=== PATIENT | female | born 1945 | race Caucasian/White ===

== ENCOUNTER 2017-09-16 13:36 | Inpatient (IN) | payer MEDICARE, OTHER ==
[2017-09-16] MEDS ORDERED: Sodium Chloride 0.9% 1,000 ML IV ONE (13:58)
--- NOTE | 2017-09-16 14:21 | EDM.PDOC ---
ED HPI GENERAL MEDICAL PROBLEM - General Chief Complaint: Gastrointestinal Problem Stated Complaint: PT IS BLEEDING FROM THE RECTUM Time Seen by Provider: 09/16/17 13:39 Source of Information: Reports: Patient History Limitations: Reports: No Limitations - History of Present Illness INITIAL COMMENTS - FREE TEXT/NARRATIVE: HISTORY AND PHYSICAL: History of present illness: Patient is a 72-year-old female who presents to the emergency room today with complaints of blood in her stool to states that she had been constipated for the last couple days and did take a Dulcolax suppository yesterday. This morning she had three bowel movements and noted blood coming from her rectum. Mild low pelvic/abdominal discomfort; nontender with palpation. Denies any fever , chills, chest pain, cough, or shortness of breath. Denies any nausea, vomiting , diarrhea or constipation. Review of systems: As per history of present illness and below otherwise all systems reviewed and negative. Past medical history: As per history of present illness and as reviewed below otherwise noncontributory. Surgical history: As per history of present illness and as reviewed below otherwise noncontributory. Social history: No reported history of drug or alcohol abuse. Family history: As per history of present illness and as reviewed below otherwise noncontributory. Physical exam: General: Well-developed and well-nourished 72-year-old female. Alert and oriented. Nontoxic appearing and in no acute distress. HEENT: Atraumatic, normocephalic, pupils equal and reactive bilaterally, negative for conjunctival pallor or scleral icterus, mucous membranes moist, throat clear, neck supple, nontender, trachea midline. No drooling or trismus noted. No meningeal signs Lungs: Clear to auscultation, breath sounds equal bilaterally, chest nontender. Heart: S1S2, regular rate and rhythm without overt murmur Abdomen: Soft, nondistended, nontender. Negative for masses or hepatosplenomegaly. Negative for costovertebral tenderness. Pelvis: Stable nontender. Genitourinary: Deferred. Rectal: No external/internal hemorrhoids noted. Good rectal tone. Positive for Hemoccult Skin: Intact, warm, dry. No lesions or rashes noted. Extremities: Atraumatic, moves all per self without difficulty or deficets. She is negative for cords or calf pain. Neurovascular unremarkable. Neuro: Awake, alert, oriented. Cranial nerves II through XII unremarkable. Cerebellum unremarkable. Motor and sensory unremarkable throughout. Exam nonfocal. Notes: Patient does not use any blood thinners, denies any recent trauma or injury. We' ll do a CT of the abdomen without contrast. A rectal exam was done with a 3d technologist at the bedside. Hemoccult positive. CT shows pericolonic within the distal transverse and descending colon, likely representing colitis. Diverticulosis without evidence of diverticulitis. Nonobstructing left nephrolithiasis. Dr. Baldwin was consulted on this case. He is agreeable to keeping her overnight as inpatient. Will start IV Flagyl and Cipro once blood cultures are obtained. Vital signs remain stable. Diagnostics: CBC, CMP, UA, CT Abdomen/Pelvis Therapeutics: IV fluids, Flagyl, Cipro Impression: Bright Red Blood Per Rectum Diverticulosis Plan: Admission to Med/Surg, in patient Definitive disposition and diagnosis as appropriate pending reevaluation and review of above. Onset: Today Duration: Hour(s): Location: Reports: Abdomen - Related Data Allergies Allergy/AdvReac Type Severity Reaction Status Date / Time cephalexin [From Keflex] Allergy Itching Verified 12/26/15 10:58 Iodinated Contrast- Oral and Allergy Itching Verified 12/26/15 10:58 IV Dye [Iodinated Contrast Media - IV Dye] Penicillins Allergy Edema Verified 12/26/15 10:58 Home Meds: Home Meds Citalopram Hydrobromide [Celexa] 40 mg PO DAILY 12/26/15 [History] Folic Acid 1 tab PO DAILY@1200 12/26/15 [History] Garlic 1,000 mg PO BEDTIME 12/26/15 [History] Lisinopril 40 mg PO DAILY 12/26/15 [History] Lutein/Min/Vit C/Vit E Acetate [Ocuvite Lutein] 1 tab PO DAILY 12/26/15 [History ] Friedheim-3/DHA/Epa/Fish Oil [Friedheim-3 Fish Oil 1,000 MG Sfgl] 1 tab PO BID 12/26/15 [History] Simvastatin [Zocor] 40 mg PO BEDTIME 12/26/15 [History] Vitamin B Complex 1 tab PO DAILY@1200 12/26/15 [History] traZODone HCl [Trazodone HCl] 150 mg PO BEDTIME 12/26/15 [History] Calcium Carbonate/Vitamin D3 [Calcium 600 + Vit D Tablet] 2 tab PO BID@1200, 2100 09/16/17 [History] Diltiazem HCl [Diltiazem 24Hr ER] 240 mg PO DAILY 09/16/17 [History] Fluticasone Propionate [Flonase] 2 spray NASBOTH DAILY PRN 09/16/17 [History] Ibuprofen 800 mg PO BID 09/16/17 [History] LORazepam 0.5 mg PO TID PRN 09/16/17 [History] Omeprazole 20 mg PO ACBREAKFAST 09/16/17 [History] Past Medical History HEENT History: Reports: Hard of Hearing, Impaired Vision Other HEENT History: wears glasses, has upper denture, lower partial and ayan hearing aids Cardiovascular History: Reports: High Cholesterol, Hypertension Respiratory History: Reports: COPD Gastrointestinal History: Reports: GERD, Hiatal Hernia Genitourinary History: Reports: Renal Calculus [employer] History: Reports: Musculoskeletal History: Reports: None Neurological History: Reports: None Psychiatric History: Reports: Depression Endocrine/Metabolic History: Reports: Diabetes, Type II Hematologic History: Reports: None Immunologic History: Reports: None Oncologic (Cancer) History: Reports: None Dermatologic History: Reports: None - Past Surgical History Head Surgeries/Procedures: Reports: None Social & Family History - Tobacco Use Smoking Status *Q: Current Every Day Smoker Years of Tobacco use: 30 Packs/Tins Daily: 1 - Caffeine Use Caffeine Use: Reports: Other - Recreational Drug Use Recreational Drug Use: No Drug Use in Last 12 Months: No ED ROS GENERAL - Review of Systems Review Of Systems: ROS reveals no pertinent complaints other than HPI. ED EXAM, GI/ABD - Physical Exam Exam: See Below (See dictation) Course - Vital Signs Last Recorded V/S: Last Vital Signs Temp 98.3 F 09/17/17 12:07 Pulse 64 09/17/17 12:07 Resp 16 09/17/17 12:07 BP 136/62 09/17/17 12:07 Pulse Ox 92 L 09/17/17 12:07 - Orders/Labs/Meds Orders: Active Orders 24 hr Category Date Time Status CULTURE BLOOD [BC] Stat Lab 09/16/17 15:45 Received CULTURE BLOOD [BC] Stat Lab 09/16/17 16:01 Received UA W/MICROSCOPIC [URIN] Stat Lab 09/16/17 14:54 Ordered Blood Culture x2 Reflex Set [OM.PC] Stat Oth 09/16/17 15:35 Ordered Medication Orders Citalopram Hydrobromide (Celexa) 40 mg PO DAILY [facility] Last Admin: 09/17/17 09:10 Dose: 40 mg Diltiazem HCl (Cardizem Cd) 240 mg PO DAILY [facility] Last Admin: 09/17/17 09:09 Dose: 240 mg Fluticasone Propionate (Flonase) 0 gm NASBOTH DAILY PRN PRN Reason: Allergies Ciprofloxacin/Dextrose 400 mg/ (Premix) 200 mls @ 200 mls/hr IV Q12H [facility] Last Admin: 09/17/17 04:13 Dose: 200 mls/hr Metronidazole 500 mg/ Premix 100 mls @ 100 mls/hr IV QID [facility] Last Admin: 09/17/17 11:24 Dose: 100 mls/hr Infusion: 09/17/17 06:32 Dose: 100 mls/hr Admin: 09/17/17 05:32 Dose: 100 mls/hr Admin: 09/17/17 04:04 Dose: Infusion: 09/17/17 00:42 Dose: 100 mls/hr Admin: 09/16/17 23:42 Dose: 100 mls/hr Sodium Chloride (Normal Saline) 1,000 mls @ 125 mls/hr IV ASDIRECTED [facility] Last Admin: 09/17/17 04:06 Dose: 125 mls/hr Infusion: 09/17/17 02:33 Dose: 125 mls/hr Admin: 09/16/17 18:33 Dose: 125 mls/hr Lisinopril (Prinivil) 40 mg PO DAILY [facility] Last Admin: 09/17/17 09:10 Dose: 40 mg Lorazepam (Ativan) 0.5 mg PO TID PRN PRN Reason: Anxiety Morphine Sulfate (Morphine) 2 mg IVPUSH Q2H PRN PRN Reason: Pain (severe 7-10) Last Admin: 09/17/17 09:20 Dose: 2 mg Nicotine (Habitrol) 21 mg TRDERM Q24H [facility] Last Admin: 09/16/17 18:24 Dose: 21 mg Ondansetron HCl (Zofran) 4 mg IVPUSH Q4H PRN PRN Reason: Nausea Last Admin: 09/16/17 18:31 Dose: 4 mg Simvastatin (Zocor) 40 mg PO BEDTIME [facility] Last Admin: 09/16/17 23:41 Dose: 40 mg Trazodone HCl (Trazodone) 150 mg PO BEDTIME [facility] Last Admin: 09/16/17 23:41 Dose: 150 mg Labs: Laboratory Tests 09/16/17 09/16/17 09/16/17 Range/Units 14:13 14:13 14:13 WBC 16.62 H (4.0-11.0) K/uL RBC 5.05 (4.30-5.90) M/uL Hgb 16.4 H (12.0-16.0) g/dL Hct 45.0 (36.0-46.0) % MCV 89.1 (80.0-98.0) fL MCH 32.5 H (27.0-32.0) pg MCHC 36.4 (31.0-37.0) g/dL RDW Std Deviation 37.8 (28.0-62.0) fl RDW Coeff of Miguelito 12 (11.0-15.0) % Plt Count 198 (150-400) K/uL MPV 10.80 (7.40-12.00) fL Neut % (Auto) 90.3 H (48.0-80.0) % Lymph % (Auto) 4.2 L (16.0-40.0) % Glascock % (Auto) 5.4 (0.0-15.0) % Eos % (Auto) 0.0 (0.0-7.0) % Baso % (Auto) 0.1 (0.0-1.5) % Neut # (Auto) 15.0 H (1.4-5.7) K/uL Lymph # (Auto) 0.7 (0.6-2.4) K/uL Glascock # (Auto) 0.9 H (0.0-0.8) K/uL Eos # (Auto) 0.0 (0.0-0.7) K/uL Baso # (Auto) 0.0 (0.0-0.1) K/uL Nucleated RBC % 0.0 /100WBC Nucleated RBCs # 0 K/uL INR 1.09 Sodium 134 L (136-145) mmol/L Potassium 4.3 (3.5-5.1) mmol/L Chloride 99 (98-107) mmol/L Carbon Dioxide 24.6 (21.0-32.0) mmol/L BUN 12 (7.0-18.0) mg/dL Creatinine 0.9 (0.6-1.0) mg/dL Est Cr Clr Drug Dosing TNP Estimated GFR (MDRD) > 60.0 ml/min Glucose 180 H (74-106) mg/dL Calcium 9.4 (8.5-10.1) mg/dL Total Bilirubin 0.6 (0.2-1.0) mg/dL AST 24 (15-37) IU/L ALT 33 (14-63) IU/L Alkaline Phosphatase 67 (46-116) U/L Total Protein 7.1 (6.4-8.2) g/dL Albumin 4.1 (3.4-5.0) g/dL Globulin 3.0 (2.0-3.5) g/dL Albumin/Globulin Ratio 1.4 (1.3-2.8) Urine Color Urine Appearance Urine pH (5.0-8.0) Ur Specific Kendall (1.001-1.035) Urine Protein (NEGATIVE) mg/dL Urine Glucose (UA) (NEGATIVE) mg/dL Urine Ketones (NEGATIVE) mg/dL Urine Occult Blood (NEGATIVE) Urine Nitrite (NEGATIVE) Urine Bilirubin (NEGATIVE) Urine Urobilinogen (<2.0) EU/dL Ur Leukocyte Esterase (NEGATIVE) Urine RBC (0-2/HPF) Urine WBC (0-5/HPF) Ur Epithelial Cells (NONE-FEW) Urine Bacteria (NEGATIVE) 09/16/17 Range/Units 14:54 WBC (4.0-11.0) K/uL RBC (4.30-5.90) M/uL Hgb (12.0-16.0) g/dL Hct (36.0-46.0) % MCV (80.0-98.0) fL MCH (27.0-32.0) pg MCHC (31.0-37.0) g/dL RDW Std Deviation (28.0-62.0) fl RDW Coeff of Miguelito (11.0-15.0) % Plt Count (150-400) K/uL MPV (7.40-12.00) fL Neut % (Auto) (48.0-80.0) % Lymph % (Auto) (16.0-40.0) % Glascock % (Auto) (0.0-15.0) % Eos % (Auto) (0.0-7.0) % Baso % (Auto) (0.0-1.5) % Neut # (Auto) (1.4-5.7) K/uL Lymph # (Auto) (0.6-2.4) K/uL Glascock # (Auto) (0.0-0.8) K/uL Eos # (Auto) (0.0-0.7) K/uL Baso # (Auto) (0.0-0.1) K/uL Nucleated RBC % /100WBC Nucleated RBCs # K/uL INR Sodium (136-145) mmol/L Potassium (3.5-5.1) mmol/L Chloride (98-107) mmol/L Carbon Dioxide (21.0-32.0) mmol/L BUN (7.0-18.0) mg/dL Creatinine (0.6-1.0) mg/dL Est Cr Clr Drug Dosing Estimated GFR (MDRD) ml/min Glucose (74-106) mg/dL Calcium (8.5-10.1) mg/dL Total Bilirubin (0.2-1.0) mg/dL AST (15-37) IU/L ALT (14-63) IU/L Alkaline Phosphatase (46-116) U/L Total Protein (6.4-8.2) g/dL Albumin (3.4-5.0) g/dL Globulin (2.0-3.5) g/dL Albumin/Globulin Ratio (1.3-2.8) Urine Color YELLOW Urine Appearance CLEAR Urine pH 5.5 (5.0-8.0) Ur Specific Kendall >= 1.030 (1.001-1.035) Urine Protein NEGATIVE (NEGATIVE) mg/dL Urine Glucose (UA) NEGATIVE (NEGATIVE) mg/dL Urine Ketones NEGATIVE (NEGATIVE) mg/dL Urine Occult Blood NEGATIVE (NEGATIVE) Urine Nitrite NEGATIVE (NEGATIVE) Urine Bilirubin NEGATIVE (NEGATIVE) Urine Urobilinogen 0.2 (<2.0) EU/dL Ur Leukocyte Esterase NEGATIVE (NEGATIVE) Urine RBC 0-1 (0-2/HPF) Urine WBC 0-1 (0-5/HPF) Ur Epithelial Cells OCCASIONAL (NONE-FEW) Urine Bacteria RARE (NEGATIVE) Meds: Medications Generic Name Dose Route Start Last Admin Trade Name Freq PRN Reason Stop Dose Admin Citalopram Hydrobromide 40 mg 09/17/17 09:00 09/17/17 09:10 Celexa PO 40 mg DAILY KATHY Administration Diltiazem HCl 240 mg 09/17/17 09:00 09/17/17 09:09 Cardizem Cd PO 240 mg DAILY KATHY Administration Fluticasone Propionate 0 gm 09/16/17 17:15 Flonase NASBOTH DAILY PRN Allergies Ciprofloxacin/Dextrose 400 mg/ 200 mls @ 200 mls/hr 09/17/17 05:00 09/17/17 04:13 Premix IV 200 mls/hr Q12H KATHY Administration Metronidazole 500 mg/ Premix 100 mls @ 100 mls/hr 09/16/17 21:00 09/17/17 11: 24 IV 100 mls/hr QID KATHY Administration Sodium Chloride 1,000 mls @ 125 mls/hr 09/16/17 17:15 09/17/17 04:06 Normal Saline IV 125 mls/hr ASDIRECTED KATHY Administration Lisinopril 40 mg 09/17/17 09:00 09/17/17 09:10 Prinivil PO 40 mg DAILY KATHY Administration Lorazepam 0.5 mg 09/16/17 17:15 Ativan PO TID PRN Anxiety Morphine Sulfate 2 mg 09/16/17 17:11 09/17/17 09:20 Morphine IVPUSH 2 mg Q2H PRN Administration Pain (severe 7-10) Nicotine 21 mg 09/16/17 18:00 09/16/17 18:24 Habitrol TRDERM 21 mg Q24H KATHY Administration Ondansetron HCl 4 mg 09/16/17 17:13 09/16/17 18:31 Zofran IVPUSH 4 mg Q4H PRN Administration Nausea Simvastatin 40 mg 09/16/17 21:00 09/16/17 23:41 Zocor PO 40 mg BEDTIME KATHY Administration Trazodone HCl 150 mg 09/16/17 21:00 09/16/17 23:41 Trazodone PO 150 mg BEDTIME KATHY Administration Discontinued Medications Generic Name Dose Route Start Last Admin Trade Name Solo PRN Reason Stop Dose Admin Sodium Chloride 1,000 mls @ 999 mls/hr 09/16/17 13:58 09/16/17 14:16 Normal Saline IV 09/16/17 14:58 999 mls/hr STAT ONE Administration Ciprofloxacin/Dextrose 400 mg/ 200 mls @ 200 mls/hr 09/16/17 15:36 09/16/17 17:28 Premix IV 09/16/17 16:35 200 mls/hr NOW STA Administration Metronidazole 500 mg/ Premix 100 mls @ 100 mls/hr 09/16/17 15:36 09/16/17 16: 07 IV 09/16/17 16:35 100 mls/hr ONETIME ONE Administration Departure - Departure Time of Disposition: 18:30 Disposition: Admitted As Inpatient 66 Clinical Impression: Blood per rectum, Diverticulitis - Discharge Information - My Orders Last 24 Hours: My Active Orders 09/16/17 14:54 UA W/MICROSCOPIC [URIN] Stat 09/16/17 15:35 Blood Culture x2 Reflex Set [OM.PC] Stat 09/16/17 15:45 CULTURE BLOOD [BC] Stat 09/16/17 16:01 CULTURE BLOOD [BC] Stat - Assessment/Plan Last 24 Hours: My Active Orders 09/16/17 14:54 UA W/MICROSCOPIC [URIN] Stat 09/16/17 15:35 Blood Culture x2 Reflex Set [OM.PC] Stat 09/16/17 15:45 CULTURE BLOOD [BC] Stat 09/16/17 16:01 CULTURE BLOOD [BC] Stat
[2017-09-16 14:56] LABS: CHLORIDE,CL 99 mmol/L (98-107); SODIUM,NA 134 mmol/L (136-145)
--- NOTE | 2017-09-16 15:18 | CT ---
CT of the abdomen and pelvis without contrast. HISTORY: Bloody stools TECHNIQUE: Axial CT images were obtained of the abdomen and pelvis without contrast. Coronal and sagi ttal reconstructions obtained. FINDINGS: The lung bases are clear, no pleural effusion. Calcified granulomas noted within the right perihilar distribution. Tiny hiatal hernia. There is mild fatty infiltration of the liver. Mild nodular thickening of the left adrenal gland. Spl een and pancreas appear grossly unremarkable. The gallbladder appears normal. There is no bulky retr operitoneal lymphadenopathy. Tiny nonobstructing left nephrolithiasis. Moderate diverticulosis without evidence of diverticulitis. Mild pericolonic stranding noted in the m id transverse colon to the sigmoid colon. Vascular calcifications are demonstrated. The appendix appe ars normal. There is no bulky pelvic lymphadenopathy. Small amount of free pelvic fluid. The urinary bladder appears normal. The visualized osseous structures appear normal. IMPRESSION: 1. Pericolonic within the distal transverse and within the descending colon. This likely represents a colitis, differential includes ischemic, inflammatory, or infectious etiology. 2. Diverticulosis without evidence of diverticulitis. 3. Small amount of free pelvic fluid. 4. Tiny nonobstructing left nephrolithiasis. 5. Mild fatty infiltration of liver.
[2017-09-16] MEDS ORDERED: metroNIDAZOLE/Normal Saline 500 MG in Premix Bag 1 BAG IV ONE (15:36)
[2017-09-16] MEDS ORDERED: Ciprofloxacin in D5W 400 MG in Premix Bag 1 BAG IV STA ×2 (15:36)
--- NOTE | 2017-09-16 16:27 | PCM.HP ---
H&P History of Present Illness - General Date of Service: 09/16/17 Admit Problem/Dx: Admission Diagnosis/Problem Admission Diagnosis/Problem Colitis, suspected diverticulitis with jennifer blood per rectum. Source of Information: Patient History Limitations: Reports: No Limitations - History of Present Illness Initial Comments - Free Text/Narative: This 72 year old female with pmh of HTN, DM type 2 (diet controlled), arrhythmia with ablation in the , and history of diverticulosis presented to the ED with concerns of bright red blood per rectum which started today around 12 pm. She reports she has not felt well for the past few days, with some lower abdominal pain dull achey in nature, diarrhea but not much, having BMs but not feeling emptied. No fevers at home. No chest pain, dyspnea, no urinary symptoms. She reports she ate at a [employer] on Friday, then Friday had some diarrhea but no blood. Last evening she felt constipated and gave herself a suppository, with no results. She does report some bowel habit changes, such as more constipation. She had a colonsocopy 2015, with Dr Villa , which revealed sigmoid diverticulosis no polyps noted. She denies any recent antibiotic use and no recent travel No sick contacts. She reports she drinks 2- 3 days a week anywhere from 1-5 drinks during that time frame. She does smoke 2 ppd cigarettes and no recreational drug use. In the ED leukocytosis noted at 16,620, Hgb 16.4. Na 134, K 4.3 glucose 180[address] UA negative. CT revealed pericolonic stranding within the distal transverse and descending colon, diverticulosis without diverticulitis. Hemoccult was positive in ED, with notable jennifer blood per rectum. She was given Ciprofloxacin and Flagyl along with IVFs. VS stable. She will be admitted inpatient for colitis suspected diverticulitis with jennifer blood per rectum. PCP, Dr Lewis. - Related Data Allergies/Adverse Reactions: Allergies Allergy/AdvReac Type Severity Reaction Status Date / Time cephalexin [From Keflex] Allergy Itching Verified 12/26/15 10:58 Iodinated Contrast- Oral and Allergy Itching Verified 12/26/15 10:58 IV Dye [Iodinated Contrast Media - IV Dye] Penicillins Allergy Edema Verified 12/26/15 10:58 Home Medications: Home Meds Citalopram Hydrobromide [Celexa] 40 mg PO DAILY 12/26/15 [History] Folic Acid 1 tab PO DAILY@1200 12/26/15 [History] Garlic 1,000 mg PO BEDTIME 12/26/15 [History] Lisinopril 40 mg PO DAILY 12/26/15 [History] Lutein/Min/Vit C/Vit E Acetate [Ocuvite Lutein] 1 tab PO DAILY 12/26/15 [History ] [place]-3/DHA/Epa/Fish Oil [[place]-3 Fish Oil 1,000 MG Sfgl] 1 tab PO BID 12/26/15 [History] Simvastatin [Zocor] 40 mg PO BEDTIME 12/26/15 [History] Vitamin B Complex 1 tab PO DAILY@1200 12/26/15 [History] traZODone HCl [Trazodone HCl] 150 mg PO BEDTIME 12/26/15 [History] Calcium Carbonate/Vitamin D3 [Calcium 600 + Vit D Tablet] 2 tab PO BID@1200, 2100 09/16/17 [History] Diltiazem HCl [Diltiazem 24Hr ER] 240 mg PO DAILY 09/16/17 [History] Fluticasone Propionate [Flonase] 2 spray NASBOTH DAILY PRN 09/16/17 [History] Ibuprofen 800 mg PO BID 09/16/17 [History] LORazepam 0.5 mg PO TID PRN 09/16/17 [History] Omeprazole 20 mg PO ACBREAKFAST 09/16/17 [History] Past Medical History HEENT History: Reports: Hard of Hearing, Impaired Vision Other HEENT History: wears glasses, has upper denture, lower partial and ayan hearing aids Cardiovascular History: Reports: Arrhythmia (with ablation in the .), High Cholesterol, Hypertension. Denies: Afib, CAD, Heart [place], [place] Respiratory History: Reports: COPD Gastrointestinal History: Reports: GERD, Hiatal Hernia Genitourinary History: Reports: Renal Calculus [employer] History: Reports: Musculoskeletal History: Reports: None Neurological History: Reports: None. Denies: CVA, TIA Psychiatric History: Reports: Anxiety, Depression Endocrine/Metabolic History: Reports: Diabetes, Type II (diet controlled) Hematologic History: Reports: None Immunologic History: Reports: None Oncologic (Cancer) History: Reports: None Dermatologic History: Reports: None - Past Surgical History Head Surgeries/Procedures: Reports: None Cardiovascular Surgical History: Reports: Other (See Below) (ablation in for arrhythmia, denies afib) Social & Family History - Tobacco Use Smoking Status *Q: Current Every Day Smoker Years of Tobacco use: 30 Packs/Tins Daily: 2 - Caffeine Use Caffeine Use: Reports: Other - Alcohol Use Alcohol Use History: Yes Days Per Week of Alcohol Use: 3 Number of Drinks Per Day: 3 Total Drinks Per Week: 9 - Recreational Drug Use Recreational Drug Use: No Drug Use in Last 12 Months: No - Living Situation & Occupation Occupation: Retired H&P Review of Systems - Review of Systems: Review Of Systems: See Below General: Reports: Malaise, Weakness (generalized). Denies: Fever, Chills HEENT: Reports: No Symptoms. Denies: Eye Pain, Headaches, Rhinitis, Vertigo Pulmonary: Reports: No Symptoms. Denies: Shortness of Breath, Cough, Sputum Cardiovascular: Reports: No Symptoms. Denies: Chest Pain, Palpitations, Orthopnea, Edema Gastrointestinal: Reports: Abdominal Pain (across lower abdominal pain) Genitourinary: Reports: No Symptoms. Denies: Dysuria, Frequency, Burning, Pain Musculoskeletal: Reports: No Symptoms Skin: Reports: No Symptoms Psychiatric: Reports: No Symptoms Neurological: Reports: No Symptoms Hematologic/Lymphatic: Reports: No Symptoms Immunologic: Reports: No Symptoms Exam - Exam Exam: See Below - Vital Signs Vital Signs: Last Vital Signs Temp 96.3 F 09/16/17 15:07 Pulse 59 L 09/16/17 15:07 Resp 16 09/16/17 15:07 BP 145/62 H 09/16/17 15:07 Pulse Ox 96 09/16/17 15:07 - Exam Quality Assessment: DVT Prophylaxis (SCDs only). No: Supplemental Oxygen General: Alert, Oriented, Cooperative HEENT: Conjunctiva Clear, Mucosa Moist & Corinne, Pupils Reactive Neck: Supple, Trachea Midline, 2 Lungs: Clear to Auscultation, Normal Respiratory Effort Cardiovascular: Regular Rate, Regular Rhythm GI/Abdominal Exam: Normal Bowel Sounds, Soft, Tender (mild tenderness across lower abdomen). No: Distended, Guarding, Rigid, Mass, Hepatomegaly, Splenomegaly Rectal (Female) Exam: Bloody Stool, Heme + Stool. No: Hemorrhoids Extremities: Normal Inspection, Normal Range of Motion, Non-Tender, No Pedal Edema, Normal Capillary Refill Neuro Extensive - Mental Status: Alert, Oriented x3, Normal Mood/Affect, Normal Cognition Neuro Extensive - Motor, Sensory, Reflexes: CN II-XII Intact Psychiatric: Alert, Normal Affect, Normal Mood - Patient Data Lab Results Last 24 hrs: Laboratory Results - last 24 hr 09/16/17 09/16/17 09/16/17 Range/Units 14:13 14:13 14:13 WBC 16.62 H (4.0-11.0) K/uL RBC 5.05 (4.30-5.90) M/uL Hgb 16.4 H (12.0-16.0) g/dL Hct 45.0 (36.0-46.0) % MCV 89.1 (80.0-98.0) fL MCH 32.5 H (27.0-32.0) pg MCHC 36.4 (31.0-37.0) g/dL RDW Std Deviation 37.8 (28.0-62.0) fl RDW Coeff of Miguelito 12 (11.0-15.0) % Plt Count 198 (150-400) K/uL MPV 10.80 (7.40-12.00) fL Neut % (Auto) 90.3 H (48.0-80.0) % Lymph % (Auto) 4.2 L (16.0-40.0) % [place] % (Auto) 5.4 (0.0-15.0) % Eos % (Auto) 0.0 (0.0-7.0) % Baso % (Auto) 0.1 (0.0-1.5) % Neut # (Auto) 15.0 H (1.4-5.7) K/uL Lymph # (Auto) 0.7 (0.6-2.4) K/uL [place] # (Auto) 0.9 H (0.0-0.8) K/uL Eos # (Auto) 0.0 (0.0-0.7) K/uL Baso # (Auto) 0.0 (0.0-0.1) K/uL Nucleated RBC % 0.0 /100WBC Nucleated RBCs # 0 K/uL INR 1.09 Sodium 134 L (136-145) mmol/L Potassium 4.3 (3.5-5.1) mmol/L Chloride 99 (98-107) mmol/L Carbon Dioxide 24.6 (21.0-32.0) mmol/L BUN 12 (7.0-18.0) mg/dL Creatinine 0.9 (0.6-1.0) mg/dL Est Cr Clr Drug Dosing TNP Estimated GFR (MDRD) > 60.0 ml/min Glucose 180 H (74-106) mg/dL Calcium 9.4 (8.5-10.1) mg/dL Total Bilirubin 0.6 (0.2-1.0) mg/dL AST 24 (15-37) IU/L ALT 33 (14-63) IU/L Alkaline Phosphatase 67 (46-116) U/L Total Protein 7.1 (6.4-8.2) g/dL Albumin 4.1 (3.4-5.0) g/dL Globulin 3.0 (2.0-3.5) g/dL Albumin/Globulin Ratio 1.4 (1.3-2.8) Urine Color Urine Appearance Urine pH (5.0-8.0) Ur Specific [place] (1.001-1.035) Urine Protein (NEGATIVE) mg/dL Urine Glucose (UA) (NEGATIVE) mg/dL Urine Ketones (NEGATIVE) mg/dL Urine Occult Blood (NEGATIVE) Urine Nitrite (NEGATIVE) Urine Bilirubin (NEGATIVE) Urine Urobilinogen (<2.0) EU/dL Ur Leukocyte Esterase (NEGATIVE) Urine RBC (0-2/HPF) Urine WBC (0-5/HPF) Ur Epithelial Cells (NONE-FEW) Urine Bacteria (NEGATIVE) 09/16/17 Range/Units 14:54 WBC (4.0-11.0) K/uL RBC (4.30-5.90) M/uL Hgb (12.0-16.0) g/dL Hct (36.0-46.0) % MCV (80.0-98.0) fL MCH (27.0-32.0) pg MCHC (31.0-37.0) g/dL RDW Std Deviation (28.0-62.0) fl RDW Coeff of Miguelito (11.0-15.0) % Plt Count (150-400) K/uL MPV (7.40-12.00) fL Neut % (Auto) (48.0-80.0) % Lymph % (Auto) (16.0-40.0) % [place] % (Auto) (0.0-15.0) % Eos % (Auto) (0.0-7.0) % Baso % (Auto) (0.0-1.5) % Neut # (Auto) (1.4-5.7) K/uL Lymph # (Auto) (0.6-2.4) K/uL [place] # (Auto) (0.0-0.8) K/uL Eos # (Auto) (0.0-0.7) K/uL Baso # (Auto) (0.0-0.1) K/uL Nucleated RBC % /100WBC Nucleated RBCs # K/uL INR Sodium (136-145) mmol/L Potassium (3.5-5.1) mmol/L Chloride (98-107) mmol/L Carbon Dioxide (21.0-32.0) mmol/L BUN (7.0-18.0) mg/dL Creatinine (0.6-1.0) mg/dL Est Cr Clr Drug Dosing Estimated GFR (MDRD) ml/min Glucose (74-106) mg/dL Calcium (8.5-10.1) mg/dL Total Bilirubin (0.2-1.0) mg/dL AST (15-37) IU/L ALT (14-63) IU/L Alkaline Phosphatase (46-116) U/L Total Protein (6.4-8.2) g/dL Albumin (3.4-5.0) g/dL Globulin (2.0-3.5) g/dL Albumin/Globulin Ratio (1.3-2.8) Urine Color YELLOW Urine Appearance CLEAR Urine pH 5.5 (5.0-8.0) Ur Specific [place] >= 1.030 (1.001-1.035) Urine Protein NEGATIVE (NEGATIVE) mg/dL Urine Glucose (UA) NEGATIVE (NEGATIVE) mg/dL Urine Ketones NEGATIVE (NEGATIVE) mg/dL Urine Occult Blood NEGATIVE (NEGATIVE) Urine Nitrite NEGATIVE (NEGATIVE) Urine Bilirubin NEGATIVE (NEGATIVE) Urine Urobilinogen 0.2 (<2.0) EU/dL Ur Leukocyte Esterase NEGATIVE (NEGATIVE) Urine RBC 0-1 (0-2/HPF) Urine WBC 0-1 (0-5/HPF) Ur Epithelial Cells OCCASIONAL (NONE-FEW) Urine Bacteria RARE (NEGATIVE) Result Diagrams: 09/16/17 14:13 09/16/17 14:13 *Q Meaningful Use (ADM) - VTE *Q VTE Pharmacological Contraindications *Q: Risk of Bleeding - Problem List (1) Colitis SNOMED Code(s): 67689143 ICD Code: K52.9 - NONINFECTIVE GASTROENTERITIS AND COLITIS, UNSPECIFIED Status: Acute Current Visit: Yes (2) Diverticulitis SNOMED Code(s): 686944171 ICD Code: K57.92 - DVTRCLI OF INTEST, PART UNSP, W/O PERF OR ABSCESS W/O BLEED Status: Acute Current Visit: Yes (3) Blood per rectum SNOMED Code(s): 18984528 ICD Code: K62.5 - HEMORRHAGE OF ANUS AND RECTUM Status: Acute Current Visit: Yes (4) HTN (hypertension) SNOMED Code(s): 38411075 ICD Code: I10 - ESSENTIAL (PRIMARY) HYPERTENSION Status: Chronic Current Visit: Yes Qualifiers: Hypertension type: essential hypertension Qualified Code(s): I10 - Essential (primary) hypertension (5) DM type 2 (diabetes mellitus, type 2) SNOMED Code(s): 03564581 ICD Code: E11.9 - TYPE 2 DIABETES MELLITUS WITHOUT COMPLICATIONS Status: Acute Current Visit: Yes Qualifiers: Diabetes mellitus senior care insulin use: without senior care use Diabetes mellitus complication status: without complication Qualified Code(s): E11.9 - Type 2 diabetes mellitus without complications (6) Depression with anxiety SNOMED Code(s): 620560700 ICD Code: F41.8 - OTHER SPECIFIED ANXIETY DISORDERS Status: Chronic Current Visit: Yes (7) Tobacco abuse SNOMED Code(s): 788928418 ICD Code: Z72.0 - TOBACCO USE Status: Chronic Current Visit: Yes Problem List Initiated/Reviewed/Updated: Yes Orders Last 24hrs: Active Orders 24 hr Category Date Time Status Admission Status [Patient Status] [ADT] Stat ADT 09/16/17 15:53 Active CDIFF TOX A+B [OP] Routine Lab 09/16/17 16:24 Ordered CULTURE BLOOD [BC] Stat Lab 09/16/17 15:45 Received CULTURE BLOOD [BC] Stat Lab 09/16/17 16:01 Received CULTURE STOOL + CAMPY+SHIGATOX [RM] Routine Lab 09/16/17 16:24 Ordered UA W/MICROSCOPIC [URIN] Stat Lab 09/16/17 14:54 Ordered Ciprofloxacin in D5W [Cipro in D5W 400 MG/200 ML] 400 Med 09/16/17 15:36 Active mg Premix Bag 1 bag IV NOW metroNIDAZOLE/Normal Saline [Flagyl 500 MG in NS 100 ML Med 09/16/17 15:36 Active ] 500 mg Premix Bag 1 bag IV ONETIME Blood Culture x2 Reflex Set [OM.PC] Stat Oth 09/16/17 15:35 Ordered Medication Orders Ciprofloxacin/Dextrose 400 mg/ (Premix) 200 mls @ 200 mls/hr IV NOW STA Stop: 09/16/17 16:35 Metronidazole 500 mg/ Premix 100 mls @ 100 mls/hr IV ONETIME ONE Stop: 09/16/17 16:35 Last Admin: 09/16/17 16:07 Dose: 100 mls/hr Assessment/Plan Comment:: This 72 year old female admitted with colitis, suspected diverticulitis with bright red blood per rectum. 1. Colitis, suspected diverticulitis: Bright red blood per rectum, noted small bloody stool upon admission. Will continue Ciprofloxacin and Flagyl due to suspected diverticulitis with suspected diverticular bleeding. Will monitor HH this evening and in the am. NPO status, ok to have Ice chips and PO meds with sips. IVFs. Stool culture negative for Cdiff and camyplobacter, other cultures still pending. Will recommend follow up for colonoscopy as outpatient. Consider general surgeon consult if bleeding not controlled with treatment plan above. 2. HTN: Stable, will monitor and continue home medications, Diltiazem and Lisinopril. No hypotension noted. 3. DM type 2: Diet controlled. Monitor BS Q6hr. 4. Depression with anxiety: Stable, continue Celexa and Ativan PRN. 5. Tobacco abuse: Will place nicotine patch. Patient educated she is not allowed to smoke during admission. VTE prophylaxis: SCDs only due to bleeding. Dispo: 2-3 days pending improvement.
[2017-09-16] MEDS ORDERED: Ondansetron 4 MG/2 ML SDV IVPUSH PRN (17:13)
[2017-09-16] MEDS ORDERED: LORazepam 0.5 MG Tab PO PRN (17:15)
[2017-09-16] MEDS ORDERED: Fluticasone Propionate Nasal Spray 16 GM Bottle NASBOTH PRN (17:15)
[2017-09-16] MEDS: Nicotine 21 MG/24 Hr Patch TRDERM SCH (18:24)
[2017-09-16] MEDS: Sodium Chloride 0.9% 1,000 ML IV SCH (18:33)
[2017-09-16] MEDS: Simvastatin 40 MG Tab PO SCH (23:41)
[2017-09-16] MEDS: traZODone 50 MG Tab PO SCH (23:41)
[2017-09-16] MEDS: metroNIDAZOLE/Normal Saline 500 MG in Premix Bag 1 BAG IV SCH (23:42)
[2017-09-17] MEDS: metroNIDAZOLE/Normal Saline 500 MG in Premix Bag 1 BAG IV SCH ×5 (04:04→23:21)
[2017-09-17] MEDS: Sodium Chloride 0.9% 1,000 ML IV SCH ×2 (04:06→15:57)
[2017-09-17] MEDS: Ciprofloxacin in D5W 400 MG in Premix Bag 1 BAG IV SCH ×4 (04:13→16:03)
[2017-09-17 06:30] LABS: CHLORIDE,CL 105 mmol/L (98-107); SODIUM,NA 137 mmol/L (136-145)
[2017-09-17] MEDS: Diltiazem 120 MG Cap.CD PO SCH (09:09)
[2017-09-17] MEDS: Citalopram 20 MG Tab PO SCH (09:10)
[2017-09-17] MEDS: Lisinopril 10 MG Tab PO SCH (09:10)
[2017-09-17] MEDS: Morphine 4 MG/ML Syringe IVPUSH PRN (09:20)
--- NOTE | 2017-09-17 12:06 | PCM.PN ---
- General Info Date of Service: 09/17/17 Admission Dx/Problem (Free Text): Admission Diagnosis/Problem Admission Diagnosis/Problem Colitis, suspected diverticulitis with jennifer blood per rectum. Subjective Update: Feeling a littler better this morning, still having some lower abdominal cramping. Had two small bloody stools early this am. But seems like it is lessening. No chest pain, dyspnea or palpitations. Functional Status: Reports: Pain Controlled, Ambulating, Urinating - Review of Systems General: Reports: Malaise. Denies: Fever, Fatigue HEENT: Reports: No Symptoms. Denies: Headaches, Sore Throat, Visual Changes Pulmonary: Reports: No Symptoms. Denies: Shortness of Breath, Cough, Sputum, Hemoptysis Cardiovascular: Reports: No Symptoms. Denies: Chest Pain, Edema Gastrointestinal: Reports: Abdominal Pain (lower abdomen, moving to more left sided), Nausea, Vomiting, Other (blood stools, but improving.) Genitourinary: Reports: No Symptoms Musculoskeletal: Reports: No Symptoms Skin: Reports: No Symptoms Neurological: Reports: No Symptoms Psychiatric: Reports: No Symptoms - Patient Data Vitals - Most Recent: Last Vital Signs Temp 98.9 F 09/17/17 09:00 Pulse 76 09/17/17 09:09 Resp 18 09/17/17 09:00 BP 153/68 H 09/17/17 09:10 Pulse Ox 91 L 09/17/17 09:00 Weight - Most Recent: 65 kg I&O - Last 24 Hours: Intake & Output 09/16/17 09/17/17 09/17/17 22:59 06:59 14:59 Intake Total 999 1504 Output Total 1450 Balance 999 54 Lab Results Last 24 Hours: Laboratory Results - last 24 hr 09/16/17 09/16/17 09/16/17 Range/Units 14:13 14:13 14:13 WBC 16.62 H (4.0-11.0) K/uL RBC 5.05 (4.30-5.90) M/uL Hgb 16.4 H (12.0-16.0) g/dL Hct 45.0 (36.0-46.0) % MCV 89.1 (80.0-98.0) fL MCH 32.5 H (27.0-32.0) pg MCHC 36.4 (31.0-37.0) g/dL RDW Std Deviation 37.8 (28.0-62.0) fl RDW Coeff of Miguelito 12 (11.0-15.0) % Plt Count 198 (150-400) K/uL MPV 10.80 (7.40-12.00) fL Neut % (Auto) 90.3 H (48.0-80.0) % Lymph % (Auto) 4.2 L (16.0-40.0) % Garza % (Auto) 5.4 (0.0-15.0) % Eos % (Auto) 0.0 (0.0-7.0) % Baso % (Auto) 0.1 (0.0-1.5) % Neut # (Auto) 15.0 H (1.4-5.7) K/uL Lymph # (Auto) 0.7 (0.6-2.4) K/uL Garza # (Auto) 0.9 H (0.0-0.8) K/uL Eos # (Auto) 0.0 (0.0-0.7) K/uL Baso # (Auto) 0.0 (0.0-0.1) K/uL Nucleated RBC % 0.0 /100WBC Nucleated RBCs # 0 K/uL INR 1.09 Sodium 134 L (136-145) mmol/L Potassium 4.3 (3.5-5.1) mmol/L Chloride 99 (98-107) mmol/L Carbon Dioxide 24.6 (21.0-32.0) mmol/L BUN 12 (7.0-18.0) mg/dL Creatinine 0.9 (0.6-1.0) mg/dL Est Cr Clr Drug Dosing TNP Estimated GFR (MDRD) > 60.0 ml/min Glucose 180 H (74-106) mg/dL POC Glucose (60-110) mg/dL Calcium 9.4 (8.5-10.1) mg/dL Total Bilirubin 0.6 (0.2-1.0) mg/dL AST 24 (15-37) IU/L ALT 33 (14-63) IU/L Alkaline Phosphatase 67 (46-116) U/L Total Protein 7.1 (6.4-8.2) g/dL Albumin 4.1 (3.4-5.0) g/dL Globulin 3.0 (2.0-3.5) g/dL Albumin/Globulin Ratio 1.4 (1.3-2.8) Urine Color Urine Appearance Urine pH (5.0-8.0) Ur Specific [place] (1.001-1.035) Urine Protein (NEGATIVE) mg/dL Urine Glucose (UA) (NEGATIVE) mg/dL Urine Ketones (NEGATIVE) mg/dL Urine Occult Blood (NEGATIVE) Urine Nitrite (NEGATIVE) Urine Bilirubin (NEGATIVE) Urine Urobilinogen (<2.0) EU/dL Ur Leukocyte Esterase (NEGATIVE) Urine RBC (0-2/HPF) Urine WBC (0-5/HPF) Ur Epithelial Cells (NONE-FEW) Urine Bacteria (NEGATIVE) 09/16/17 09/16/17 09/16/17 Range/Units 14:54 18:47 20:02 WBC (4.0-11.0) K/uL RBC (4.30-5.90) M/uL Hgb 14.5 (12.0-16.0) g/dL Hct 39.9 (36.0-46.0) % MCV (80.0-98.0) fL MCH (27.0-32.0) pg MCHC (31.0-37.0) g/dL RDW Std Deviation (28.0-62.0) fl RDW Coeff of Miguelito (11.0-15.0) % Plt Count (150-400) K/uL MPV (7.40-12.00) fL Neut % (Auto) (48.0-80.0) % Lymph % (Auto) (16.0-40.0) % Garza % (Auto) (0.0-15.0) % Eos % (Auto) (0.0-7.0) % Baso % (Auto) (0.0-1.5) % Neut # (Auto) (1.4-5.7) K/uL Lymph # (Auto) (0.6-2.4) K/uL Garza # (Auto) (0.0-0.8) K/uL Eos # (Auto) (0.0-0.7) K/uL Baso # (Auto) (0.0-0.1) K/uL Nucleated RBC % /100WBC Nucleated RBCs # K/uL INR Sodium (136-145) mmol/L Potassium (3.5-5.1) mmol/L Chloride (98-107) mmol/L Carbon Dioxide (21.0-32.0) mmol/L BUN (7.0-18.0) mg/dL Creatinine (0.6-1.0) mg/dL Est Cr Clr Drug Dosing Estimated GFR (MDRD) ml/min Glucose (74-106) mg/dL POC Glucose 193 H (60-110) mg/dL Calcium (8.5-10.1) mg/dL Total Bilirubin (0.2-1.0) mg/dL AST (15-37) IU/L ALT (14-63) IU/L Alkaline Phosphatase (46-116) U/L Total Protein (6.4-8.2) g/dL Albumin (3.4-5.0) g/dL Globulin (2.0-3.5) g/dL Albumin/Globulin Ratio (1.3-2.8) Urine Color YELLOW Urine Appearance CLEAR Urine pH 5.5 (5.0-8.0) Ur Specific [place] >= 1.030 (1.001-1.035) Urine Protein NEGATIVE (NEGATIVE) mg/dL Urine Glucose (UA) NEGATIVE (NEGATIVE) mg/dL Urine Ketones NEGATIVE (NEGATIVE) mg/dL Urine Occult Blood NEGATIVE (NEGATIVE) Urine Nitrite NEGATIVE (NEGATIVE) Urine Bilirubin NEGATIVE (NEGATIVE) Urine Urobilinogen 0.2 (<2.0) EU/dL Ur Leukocyte Esterase NEGATIVE (NEGATIVE) Urine RBC 0-1 (0-2/HPF) Urine WBC 0-1 (0-5/HPF) Ur Epithelial Cells OCCASIONAL (NONE-FEW) Urine Bacteria RARE (NEGATIVE) 09/16/17 09/17/17 09/17/17 Range/Units 23:58 05:20 05:20 WBC 12.40 H (4.0-11.0) K/uL RBC 4.35 (4.30-5.90) M/uL Hgb 13.7 (12.0-16.0) g/dL Hct 38.8 (36.0-46.0) % MCV 89.2 (80.0-98.0) fL MCH 31.5 (27.0-32.0) pg MCHC 35.3 (31.0-37.0) g/dL RDW Std Deviation 38.0 (28.0-62.0) fl RDW Coeff of Miguelito 12 (11.0-15.0) % Plt Count 167 (150-400) K/uL MPV 10.80 (7.40-12.00) fL Neut % (Auto) 83.1 H (48.0-80.0) % Lymph % (Auto) 10.3 L (16.0-40.0) % Garza % (Auto) 6.3 (0.0-15.0) % Eos % (Auto) 0.2 (0.0-7.0) % Baso % (Auto) 0.1 (0.0-1.5) % Neut # (Auto) 10.3 H (1.4-5.7) K/uL Lymph # (Auto) 1.3 (0.6-2.4) K/uL Garza # (Auto) 0.8 (0.0-0.8) K/uL Eos # (Auto) 0.0 (0.0-0.7) K/uL Baso # (Auto) 0.0 (0.0-0.1) K/uL Nucleated RBC % 0.0 /100WBC Nucleated RBCs # 0 K/uL INR Sodium 137 (136-145) mmol/L Potassium 3.8 (3.5-5.1) mmol/L Chloride 105 (98-107) mmol/L Carbon Dioxide 24.7 (21.0-32.0) mmol/L BUN 5 L (7.0-18.0) mg/dL Creatinine 0.7 (0.6-1.0) mg/dL Est Cr Clr Drug Dosing 57.46 Estimated GFR (MDRD) > 60.0 ml/min Glucose 185 H (74-106) mg/dL POC Glucose 121 H (60-110) mg/dL Calcium 8.7 (8.5-10.1) mg/dL Total Bilirubin (0.2-1.0) mg/dL AST (15-37) IU/L ALT (14-63) IU/L Alkaline Phosphatase (46-116) U/L Total Protein (6.4-8.2) g/dL Albumin (3.4-5.0) g/dL Globulin (2.0-3.5) g/dL Albumin/Globulin Ratio (1.3-2.8) Urine Color Urine Appearance Urine pH (5.0-8.0) Ur Specific [place] (1.001-1.035) Urine Protein (NEGATIVE) mg/dL Urine Glucose (UA) (NEGATIVE) mg/dL Urine Ketones (NEGATIVE) mg/dL Urine Occult Blood (NEGATIVE) Urine Nitrite (NEGATIVE) Urine Bilirubin (NEGATIVE) Urine Urobilinogen (<2.0) EU/dL Ur Leukocyte Esterase (NEGATIVE) Urine RBC (0-2/HPF) Urine WBC (0-5/HPF) Ur Epithelial Cells (NONE-FEW) Urine Bacteria (NEGATIVE) 09/17/17 Range/Units 05:44 WBC (4.0-11.0) K/uL RBC (4.30-5.90) M/uL Hgb (12.0-16.0) g/dL Hct (36.0-46.0) % MCV (80.0-98.0) fL MCH (27.0-32.0) pg MCHC (31.0-37.0) g/dL RDW Std Deviation (28.0-62.0) fl RDW Coeff of Miguelito (11.0-15.0) % Plt Count (150-400) K/uL MPV (7.40-12.00) fL Neut % (Auto) (48.0-80.0) % Lymph % (Auto) (16.0-40.0) % Garza % (Auto) (0.0-15.0) % Eos % (Auto) (0.0-7.0) % Baso % (Auto) (0.0-1.5) % Neut # (Auto) (1.4-5.7) K/uL Lymph # (Auto) (0.6-2.4) K/uL Garza # (Auto) (0.0-0.8) K/uL Eos # (Auto) (0.0-0.7) K/uL Baso # (Auto) (0.0-0.1) K/uL Nucleated RBC % /100WBC Nucleated RBCs # K/uL INR Sodium (136-145) mmol/L Potassium (3.5-5.1) mmol/L Chloride (98-107) mmol/L Carbon Dioxide (21.0-32.0) mmol/L BUN (7.0-18.0) mg/dL Creatinine (0.6-1.0) mg/dL Est Cr Clr Drug Dosing Estimated GFR (MDRD) ml/min Glucose (74-106) mg/dL POC Glucose 157 H (60-110) mg/dL Calcium (8.5-10.1) mg/dL Total Bilirubin (0.2-1.0) mg/dL AST (15-37) IU/L ALT (14-63) IU/L Alkaline Phosphatase (46-116) U/L Total Protein (6.4-8.2) g/dL Albumin (3.4-5.0) g/dL Globulin (2.0-3.5) g/dL Albumin/Globulin Ratio (1.3-2.8) Urine Color Urine Appearance Urine pH (5.0-8.0) Ur Specific [place] (1.001-1.035) Urine Protein (NEGATIVE) mg/dL Urine Glucose (UA) (NEGATIVE) mg/dL Urine Ketones (NEGATIVE) mg/dL Urine Occult Blood (NEGATIVE) Urine Nitrite (NEGATIVE) Urine Bilirubin (NEGATIVE) Urine Urobilinogen (<2.0) EU/dL Ur Leukocyte Esterase (NEGATIVE) Urine RBC (0-2/HPF) Urine WBC (0-5/HPF) Ur Epithelial Cells (NONE-FEW) Urine Bacteria (NEGATIVE) Daniel Results Last 24 Hours: Microbiology 09/16/17 16:35 Clostridium difficile Toxin A & B - Final Stool / Feces Negative for C.Diff Toxin/AG 09/16/17 16:35 Campylobacter Antigen Assay - Final Stool / Feces NEGATIVE [facility]LO[facility]CT[facility] AG Med Orders - Current: Current Medications Citalopram Hydrobromide (Celexa) 40 mg PO DAILY [facility] Last Admin: 09/17/17 09:10 Dose: 40 mg Diltiazem HCl (Cardizem Cd) 240 mg PO DAILY [facility] Last Admin: 09/17/17 09:09 Dose: 240 mg Fluticasone Propionate (Flonase) 0 gm NASBOTH DAILY PRN PRN Reason: Allergies Ciprofloxacin/Dextrose 400 mg/ (Premix) 200 mls @ 200 mls/hr IV Q12H [facility] Last Admin: 09/17/17 04:13 Dose: 200 mls/hr Metronidazole 500 mg/ Premix 100 mls @ 100 mls/hr IV QID [facility] Last Admin: 09/17/17 11:24 Dose: 100 mls/hr Sodium Chloride (Normal Saline) 1,000 mls @ 125 mls/hr IV ASDIRECTED [facility] Last Admin: 09/17/17 04:06 Dose: 125 mls/hr Lisinopril (Prinivil) 40 mg PO DAILY [facility] Last Admin: 09/17/17 09:10 Dose: 40 mg Lorazepam (Ativan) 0.5 mg PO TID PRN PRN Reason: Anxiety Morphine Sulfate (Morphine) 2 mg IVPUSH Q2H PRN PRN Reason: Pain (severe 7-10) Last Admin: 09/17/17 09:20 Dose: 2 mg Nicotine (Habitrol) 21 mg TRDERM Q24H [facility] Last Admin: 09/16/17 18:24 Dose: 21 mg Ondansetron HCl (Zofran) 4 mg IVPUSH Q4H PRN PRN Reason: Nausea Last Admin: 09/16/17 18:31 Dose: 4 mg Simvastatin (Zocor) 40 mg PO BEDTIME [facility] Last Admin: 09/16/17 23:41 Dose: 40 mg Trazodone HCl (Trazodone) 150 mg PO BEDTIME [facility] Last Admin: 09/16/17 23:41 Dose: 150 mg Discontinued Medications Sodium Chloride (Normal Saline) 1,000 mls @ 999 mls/hr IV STAT ONE Stop: 09/16/17 14:58 Last Admin: 09/16/17 14:16 Dose: 999 mls/hr Ciprofloxacin/Dextrose 400 mg/ (Premix) 200 mls @ 200 mls/hr IV NOW STA Stop: 09/16/17 16:35 Last Admin: 09/16/17 17:28 Dose: 200 mls/hr Metronidazole 500 mg/ Premix 100 mls @ 100 mls/hr IV ONETIME ONE Stop: 09/16/17 16:35 Last Admin: 09/16/17 16:07 Dose: 100 mls/hr - Exam General: Alert, Oriented, Cooperative, No Acute Distress Lungs: Clear to Auscultation, Normal Respiratory Effort Cardiovascular: Regular Rate, Regular Rhythm GI/Abdominal Exam: Normal Bowel Sounds, Soft, No Organomegaly, No Distention, Tender (lower abdomen and more L today.) Extremities: Normal Inspection, Normal Range of Motion, Non-Tender, No Pedal Edema, Normal Capillary Refill Neurological: No New Focal Deficit Psy/Mental Status: Alert, Normal Affect, Normal Mood - Problem List & Annotations (1) Colitis SNOMED Code(s): 61163167 Code(s): K52.9 - NONINFECTIVE GASTROENTERITIS AND COLITIS, UNSPECIFIED Status: Acute Current Visit: Yes (2) Diverticulitis SNOMED Code(s): 241587967 Code(s): K57.92 - DVTRCLI OF INTEST, PART UNSP, W/O PERF OR ABSCESS W/O BLEED Status: Acute Current Visit: Yes (3) Blood per rectum SNOMED Code(s): 17248125 Code(s): K62.5 - HEMORRHAGE OF ANUS AND RECTUM Status: Acute Current Visit: Yes (4) HTN (hypertension) SNOMED Code(s): 46076240 Code(s): I10 - ESSENTIAL (PRIMARY) HYPERTENSION Status: Chronic Current Visit: Yes Qualifiers: Hypertension type: essential hypertension Qualified Code(s): I10 - Essential (primary) hypertension (5) DM type 2 (diabetes mellitus, type 2) SNOMED Code(s): 92001073 Code(s): E11.9 - TYPE 2 DIABETES MELLITUS WITHOUT COMPLICATIONS Status: Acute Current Visit: Yes Qualifiers: 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: without custodial use Diabetes mellitus complication status: without complication Qualified Code(s): E11.9 - Type 2 diabetes mellitus without complications (6) Depression with anxiety SNOMED Code(s): 996277208 Code(s): F41.8 - OTHER SPECIFIED ANXIETY DISORDERS Status: Chronic Current Visit: Yes (7) Tobacco abuse SNOMED Code(s): 764234705 Code(s): Z72.0 - TOBACCO USE Status: Chronic Current Visit: Yes - Problem List Review Problem List Initiated/Reviewed/Updated: Yes - My Orders Last 24 Hours: My Active Orders 09/16/17 16:35 CDIFF TOX A+B [OP] Routine CULTURE STOOL + CAMPY+SHIGATOX [RM] Routine 09/16/17 17:11 May Shower [RC] ASDIRECTED Up ad Marybel [RC] ASDIRECTED Morphine 2 mg IVPUSH Q2H PRN Resuscitation Status Routine 09/16/17 17:12 Intake and Output [RC] QSHIFT Oxygen Therapy [RC] PRN VTE/DVT Education [RC] PER UNIT ROUTINE Vital Signs [RC] Q4H 09/16/17 17:13 Ondansetron [Zofran] 4 mg IVPUSH Q4H PRN 09/16/17 17:15 Fluticasone Propionate [Flonase] 0 gm NASBOTH DAILY PRN LORazepam [Ativan] 0.5 mg PO TID PRN Sodium Chloride 0.9% [Normal Saline] 1,000 ml IV ASDIRECTED 09/16/17 17:42 Blood Glucose Check, Bedside [RC] Q6HR 09/16/17 18:00 Nicotine [Habitrol] 21 mg TRDERM Q24H 09/16/17 21:00 Simvastatin [Zocor] 40 mg PO BEDTIME metroNIDAZOLE/Normal Saline [Flagyl 500 MG in NS 100 ML] 500 mg Premix Bag 1 bag IV QID traZODone 150 mg PO BEDTIME 09/17/17 05:00 Ciprofloxacin in D5W [Cipro in D5W 400 MG/200 ML] 400 mg Premix Bag 1 bag IV Q12H 09/17/17 09:00 Citalopram [Celexa] 40 mg PO DAILY Diltiazem [Cardizem CD] 240 mg PO DAILY Lisinopril [Prinivil] 40 mg PO DAILY 09/17/17 Breakfast Nothing Per Oral Diet [DIET] 09/18/17 05:11 BASIC METABOLIC PANEL,BMP [CHEM] AM CBC WITH AUTO DIFF [HEME] AM 09/19/17 05:11 BASIC METABOLIC PANEL,BMP [CHEM] AM CBC WITH AUTO DIFF [HEME] AM - Plan Plan:: This 72 year old female admitted with colitis, suspected diverticulitis with bright red blood per rectum. 1. Colitis, suspected diverticulitis: Improving, bright red blood per rectum haved slowed. Continue Ciprofloxacin and Flagyl due to suspected diverticulitis with suspected diverticular bleeding. Continue NPO status, ok to have Ice chips and PO meds with sips. Will reassess this afternoon. Continue IVFs. Stool culture negative for Cdiff and camyplobacter, other cultures still pending. Will recommend follow up for colonoscopy as outpatient. Consider general surgeon consult if bleeding not controlled with treatment plan above. 2. HTN: Stable, will monitor and continue home medications, Diltiazem and Lisinopril. No hypotension noted. 3. DM type 2: Stable. Diet controlled. Monitor BS Q6hr. 4. Depression with anxiety: Stable, continue Celexa and Ativan PRN. 5. Tobacco abuse: Will place nicotine patch. Patient educated she is not allowed to smoke during admission. VTE prophylaxis: SCDs only due to bleeding. Dispo: 2-3 days pending improvement.
[2017-09-17] MEDS: Nicotine 21 MG/24 Hr Patch TRDERM SCH (17:06)
[2017-09-17] MEDS: Simvastatin 40 MG Tab PO SCH (20:41)
[2017-09-17] MEDS: traZODone 50 MG Tab PO SCH (20:41)
[2017-09-18] MEDS: Sodium Chloride 0.9% 1,000 ML IV SCH ×2 (03:17→14:38)
[2017-09-18] MEDS: Ciprofloxacin in D5W 400 MG in Premix Bag 1 BAG IV SCH ×4 (04:08→16:55)
[2017-09-18] MEDS: metroNIDAZOLE/Normal Saline 500 MG in Premix Bag 1 BAG IV SCH ×3 (05:41→18:11)
[2017-09-18 05:48] LABS: CHLORIDE,CL 105 mmol/L (98-107); SODIUM,NA 139 mmol/L (136-145)
[2017-09-18] MEDS: Diltiazem 120 MG Cap.CD PO SCH (08:11)
[2017-09-18] MEDS: Lisinopril 10 MG Tab PO SCH (08:12)
[2017-09-18] MEDS: Citalopram 20 MG Tab PO SCH (08:13)
--- NOTE | 2017-09-18 11:03 | PCM.PN ---
- General Info Date of Service: 09/18/17 Admission Dx/Problem (Free Text): Admission Diagnosis/Problem Admission Diagnosis/Problem Colitis, suspected diverticulitis with jennifer blood per rectum. Subjective Update: Feeling ok this morning, appetite is poor. Having more stool in diarrhea and less blood. No chest pain or dyspnea. Functional Status: Reports: Pain Controlled, Tolerating Diet, Ambulating, Urinating - Review of Systems General: Reports: Malaise. Denies: Fever, Weakness HEENT: Reports: No Symptoms. Denies: Headaches, Sore Throat, Rhinitis, Visual Changes Pulmonary: Reports: No Symptoms. Denies: Shortness of Breath Cardiovascular: Reports: No Symptoms. Denies: Chest Pain Gastrointestinal: Reports: Abdominal Pain (lower abdomen, cramping when about to have a stool.), Diarrhea (with blood, but blood is diminishing). Denies: Nausea, Vomiting Genitourinary: Reports: No Symptoms Musculoskeletal: Reports: No Symptoms Skin: Reports: No Symptoms Neurological: Reports: No Symptoms Psychiatric: Reports: No Symptoms - Patient Data Vitals - Most Recent: Last Vital Signs Temp 98.7 F 09/18/17 08:00 Pulse 68 09/18/17 08:11 Resp 20 09/18/17 08:00 BP 135/5 L 09/18/17 08:12 Pulse Ox 98 09/18/17 08:00 Weight - Most Recent: 65 kg I&O - Last 24 Hours: Intake & Output 09/17/17 09/18/17 09/18/17 22:59 06:59 14:59 Intake Total 1349 3457 Output Total 2180 1780 Balance -831 8837 Lab Results Last 24 Hours: Laboratory Results - last 24 hr 09/17/17 09/17/17 09/17/17 Range/Units 11:36 16:08 23:20 WBC (4.0-11.0) K/uL RBC (4.30-5.90) M/uL Hgb (12.0-16.0) g/dL Hct (36.0-46.0) % MCV (80.0-98.0) fL MCH (27.0-32.0) pg MCHC (31.0-37.0) g/dL RDW Std Deviation (28.0-62.0) fl RDW Coeff of Miguelito (11.0-15.0) % Plt Count (150-400) K/uL MPV (7.40-12.00) fL Neut % (Auto) (48.0-80.0) % Lymph % (Auto) (16.0-40.0) % [place] % (Auto) (0.0-15.0) % Eos % (Auto) (0.0-7.0) % Baso % (Auto) (0.0-1.5) % Neut # (Auto) (1.4-5.7) K/uL Lymph # (Auto) (0.6-2.4) K/uL [place] # (Auto) (0.0-0.8) K/uL Eos # (Auto) (0.0-0.7) K/uL Baso # (Auto) (0.0-0.1) K/uL Nucleated RBC % /100WBC Nucleated RBCs # K/uL Sodium (136-145) mmol/L Potassium (3.5-5.1) mmol/L Chloride (98-107) mmol/L Carbon Dioxide (21.0-32.0) mmol/L BUN (7.0-18.0) mg/dL Creatinine (0.6-1.0) mg/dL Est Cr Clr Drug Dosing mL/min Estimated GFR (MDRD) ml/min Glucose (74-106) mg/dL POC Glucose 159 H 156 H 110 (60-110) mg/dL Calcium (8.5-10.1) mg/dL 09/18/17 09/18/17 Range/Units 04:55 04:55 WBC 14.37 H (4.0-11.0) K/uL RBC 4.08 L (4.30-5.90) M/uL Hgb 12.8 (12.0-16.0) g/dL Hct 36.9 (36.0-46.0) % MCV 90.4 (80.0-98.0) fL MCH 31.4 (27.0-32.0) pg MCHC 34.7 (31.0-37.0) g/dL RDW Std Deviation 38.4 (28.0-62.0) fl RDW Coeff of Miguelito 12 (11.0-15.0) % Plt Count 150 (150-400) K/uL MPV 10.50 (7.40-12.00) fL Neut % (Auto) 82.1 H (48.0-80.0) % Lymph % (Auto) 9.7 L (16.0-40.0) % [place] % (Auto) 7.9 (0.0-15.0) % Eos % (Auto) 0.2 (0.0-7.0) % Baso % (Auto) 0.1 (0.0-1.5) % Neut # (Auto) 11.8 H (1.4-5.7) K/uL Lymph # (Auto) 1.4 (0.6-2.4) K/uL [place] # (Auto) 1.1 H (0.0-0.8) K/uL Eos # (Auto) 0.0 (0.0-0.7) K/uL Baso # (Auto) 0.0 (0.0-0.1) K/uL Nucleated RBC % 0.0 /100WBC Nucleated RBCs # 0 K/uL Sodium 139 (136-145) mmol/L Potassium 3.2 L (3.5-5.1) mmol/L Chloride 105 (98-107) mmol/L Carbon Dioxide 27.1 (21.0-32.0) mmol/L BUN 2 L (7.0-18.0) mg/dL Creatinine 0.6 (0.6-1.0) mg/dL Est Cr Clr Drug Dosing 67.03 mL/min Estimated GFR (MDRD) > 60.0 ml/min Glucose 169 H (74-106) mg/dL POC Glucose (60-110) mg/dL Calcium 8.3 L (8.5-10.1) mg/dL Daniel Results Last 24 Hours: Microbiology 09/16/17 16:35 Stool Culture - Final Stool / Feces NO SALMONELLA, SHIGELLA,OR E.COLI O157 ISOLATED Campylobacter Antigen Assay - Final NEGATIVE CAMPYLOBACTER AG - Final NEGATIVE FOR SHIGA TOXIN 1 - Final NEGATIVE FOR SHIGA TOXIN 2 09/16/17 16:01 Aerobic Blood Culture - Preliminary Blood - Venous - Lab Draw NO GROWTH AFTER 1 DAY Anaerobic Blood Culture - Preliminary NO GROWTH AFTER 1 DAY 09/16/17 15:45 Aerobic Blood Culture - Preliminary Blood - Venous NO GROWTH AFTER 1 DAY Anaerobic Blood Culture - Preliminary NO GROWTH AFTER 1 DAY Med Orders - Current: Current Medications Citalopram Hydrobromide (Celexa) 40 mg PO DAILY [facility] Last Admin: 09/18/17 08:13 Dose: 40 mg Diltiazem HCl (Cardizem Cd) 240 mg PO DAILY [facility] Last Admin: 09/18/17 08:11 Dose: 240 mg Fluticasone Propionate (Flonase) 0 gm NASBOTH DAILY PRN PRN Reason: Allergies Ciprofloxacin/Dextrose 400 mg/ (Premix) 200 mls @ 200 mls/hr IV Q12H [facility] Last Admin: 09/18/17 04:08 Dose: 200 mls/hr Metronidazole 500 mg/ Premix 100 mls @ 100 mls/hr IV QID [facility] Last Admin: 09/18/17 05:41 Dose: 100 mls/hr Sodium Chloride (Normal Saline) 1,000 mls @ 125 mls/hr IV ASDIRECTED [facility] Last Admin: 09/18/17 03:17 Dose: 125 mls/hr Lisinopril (Prinivil) 40 mg PO DAILY [facility] Last Admin: 09/18/17 08:12 Dose: 40 mg Lorazepam (Ativan) 0.5 mg PO TID PRN PRN Reason: Anxiety Morphine Sulfate (Morphine) 2 mg IVPUSH Q2H PRN PRN Reason: Pain (severe 7-10) Last Admin: 09/17/17 09:20 Dose: 2 mg Nicotine (Habitrol) 21 mg TRDERM Q24H [facility] Last Admin: 09/17/17 17:06 Dose: 21 mg Ondansetron HCl (Zofran) 4 mg IVPUSH Q4H PRN PRN Reason: Nausea Last Admin: 09/16/17 18:31 Dose: 4 mg Simvastatin (Zocor) 40 mg PO BEDTIME [facility] Last Admin: 09/17/17 20:41 Dose: 40 mg Trazodone HCl (Trazodone) 150 mg PO BEDTIME [facility] Last Admin: 09/17/17 20:41 Dose: 150 mg Discontinued Medications Sodium Chloride (Normal Saline) 1,000 mls @ 999 mls/hr IV STAT ONE Stop: 09/16/17 14:58 Last Admin: 09/16/17 14:16 Dose: 999 mls/hr Ciprofloxacin/Dextrose 400 mg/ (Premix) 200 mls @ 200 mls/hr IV NOW STA Stop: 09/16/17 16:35 Last Admin: 09/16/17 17:28 Dose: 200 mls/hr Metronidazole 500 mg/ Premix 100 mls @ 100 mls/hr IV ONETIME ONE Stop: 09/16/17 16:35 Last Admin: 09/16/17 16:07 Dose: 100 mls/hr - Exam General: Alert, Oriented, Cooperative, No Acute Distress Neck: Supple Lungs: Clear to Auscultation, Normal Respiratory Effort Cardiovascular: Regular Rate, Regular Rhythm GI/Abdominal Exam: Normal Bowel Sounds, Soft, No Organomegaly, No Distention, No Abnormal Bruit, No Mass, Pelvis Stable, Tender (lower abdomen, slightly improved. ) Extremities: Normal Inspection, Normal Range of Motion, Non-Tender, No Pedal Edema, Normal Capillary Refill Neurological: No New Focal Deficit Psy/Mental Status: Alert, Normal Affect, Normal Mood - Problem List & Annotations (1) Colitis SNOMED Code(s): 52999475 Code(s): K52.9 - NONINFECTIVE GASTROENTERITIS AND COLITIS, UNSPECIFIED Status: Acute Current Visit: Yes (2) Diverticulitis SNOMED Code(s): 365005333 Code(s): K57.92 - DVTRCLI OF INTEST, PART UNSP, W/O PERF OR ABSCESS W/O BLEED Status: Acute Current Visit: Yes (3) Blood per rectum SNOMED Code(s): 95954041 Code(s): K62.5 - HEMORRHAGE OF ANUS AND RECTUM Status: Acute Current Visit: Yes (4) HTN (hypertension) SNOMED Code(s): 83784294 Code(s): I10 - ESSENTIAL (PRIMARY) HYPERTENSION Status: Chronic Current Visit: Yes Qualifiers: Hypertension type: essential hypertension Qualified Code(s): I10 - Essential (primary) hypertension (5) DM type 2 (diabetes mellitus, type 2) SNOMED Code(s): 88234551 Code(s): E11.9 - TYPE 2 DIABETES MELLITUS WITHOUT COMPLICATIONS Status: Acute Current Visit: Yes Qualifiers: Diabetes mellitus rat exterminator insulin use: without rat exterminator use Diabetes mellitus complication status: without complication Qualified Code(s): E11.9 - Type 2 diabetes mellitus without complications (6) Depression with anxiety SNOMED Code(s): 266062533 Code(s): F41.8 - OTHER SPECIFIED ANXIETY DISORDERS Status: Chronic Current Visit: Yes (7) Tobacco abuse SNOMED Code(s): 584282455 Code(s): Z72.0 - TOBACCO USE Status: Chronic Current Visit: Yes - Problem List Review Problem List Initiated/Reviewed/Updated: Yes - My Orders Last 24 Hours: My Active Orders 09/17/17 Dinner Clear Liquid Diet [DIET] 09/19/17 05:11 BASIC METABOLIC PANEL,BMP [CHEM] AM CBC WITH AUTO DIFF [HEME] AM - Plan Plan:: This 72 year old female admitted with colitis, suspected diverticulitis with bright red blood per rectum. 1. Colitis, suspected diverticulitis: Improving, having more diarrhea with actual stool, not just blood. Blood amount is improving. hgb stable. Continue Ciprofloxacin and Flagyl. Will advance to [place] diet today monitor. Appetite is poor, woud like to see her able to keep hydrated and tolerating po intake better prior to discharge. Will slow IVFs. Stool culture negative for Cdiff and camyplobacter, other cultures still pending. Will recommend follow up for colonoscopy as outpatient. Consider general surgeon consult if bleeding not controlled with treatment plan above. 2. HTN: Stable, will monitor and continue home medications, Diltiazem and Lisinopril. No hypotension noted. 3. DM type 2: Stable. Diet controlled. Monitor BS with meals. 4. Depression with anxiety: Stable, continue Celexa and Ativan PRN. 5. Tobacco abuse: Will place nicotine patch. Patient educated she is not allowed to smoke during admission. VTE prophylaxis: SCDs only due to bleeding. Dispo:1-2 days pending continued improvement.
[2017-09-18] MEDS ORDERED: Potassium Chloride 20 MEQ Tab.ER PO ONE (16:30)
[2017-09-18] MEDS: Nicotine 21 MG/24 Hr Patch TRDERM SCH (18:10)
[2017-09-18] MEDS: traZODone 50 MG Tab PO SCH (20:27)
[2017-09-18] MEDS: Simvastatin 40 MG Tab PO SCH (20:28)
[2017-09-19] MEDS: metroNIDAZOLE/Normal Saline 500 MG in Premix Bag 1 BAG IV SCH ×2 (00:39→05:27)
[2017-09-19] MEDS: Sodium Chloride 0.9% 1,000 ML IV SCH (03:00)
[2017-09-19] MEDS: Ciprofloxacin in D5W 400 MG in Premix Bag 1 BAG IV SCH ×2 (04:20)
[2017-09-19 05:53] LABS: CHLORIDE,CL 105 mmol/L (98-107); SODIUM,NA 138 mmol/L (136-145)
[2017-09-19] MEDS: Morphine 4 MG/ML Syringe IVPUSH PRN (07:30)
[2017-09-19 08:21] VITALS: BP 138/51
[2017-09-19] MEDS: Citalopram 20 MG Tab PO SCH (08:34)
[2017-09-19] MEDS: Lisinopril 10 MG Tab PO SCH (08:35)
[2017-09-19] MEDS: Diltiazem 120 MG Cap.CD PO SCH (08:36)
[2017-09-19] MEDS ORDERED: Potassium Chloride 20 MEQ Tab.ER PO SCH (09:00)
--- NOTE | 2017-09-19 10:46 | PCM.DCSUM1 ---
Discharge Summary - Hospital Course Brief History: This 72 year old female with pmh of HTN, DM type 2 (diet controlled), arrhythmia with ablation in the , and history of diverticulosis presented to the ED with concerns of bright red blood per rectum which started 09/16/2017 around 12 pm. She reports she has not felt well for the past few days, with some lower abdominal pain dull achey in nature, diarrhea but not much, having BMs but not feeling emptied. No fevers at home. No chest pain, dyspnea, no urinary symptoms. She reports she ate at a [employer] on Friday, then Friday had some diarrhea but no blood. Last evening she felt constipated and gave herself a suppository, with no results. She does report some bowel habit changes, such as more constipation. She had a colonsocopy 2015 , with Dr Villa, which revealed sigmoid diverticulosis no polyps noted. She denies any recent antibiotic use and no recent travel No sick contacts. She reports she drinks 2-3 days a week anywhere from 1-5 drinks during that time frame. She does smoke 2 ppd cigarettes and no recreational drug use. In the ED leukocytosis noted at 16,620, Hgb 16.4. Na 134, K 4.3 glucose 180. UA negative. CT revealed pericolonic stranding within the distal transverse and descending colon, diverticulosis without diverticulitis. Hemoccult was positive in ED, with notable jennifer blood per rectum. She was given Ciprofloxacin and Flagyl along with IVFs. VS stable. She will be admitted inpatient for colitis suspected diverticulitis with jennifer blood per rectum. PCP, Dr Lewis. - Discharge Data Discharge Date: 09/19/17 Discharge Disposition: Home, Self-Care 01 Condition: Good - Discharge Diagnosis/Problem(s) (1) Colitis SNOMED Code(s): 69000500 ICD Code: K52.9 - NONINFECTIVE GASTROENTERITIS AND COLITIS, UNSPECIFIED Status: Acute Current Visit: Yes (2) Diverticulitis SNOMED Code(s): 796228792 ICD Code: K57.92 - DVTRCLI OF INTEST, PART UNSP, W/O PERF OR ABSCESS W/O BLEED Status: Acute Current Visit: Yes (3) Blood per rectum SNOMED Code(s): 70859356 ICD Code: K62.5 - HEMORRHAGE OF ANUS AND RECTUM Status: Acute Current Visit: Yes (4) HTN (hypertension) SNOMED Code(s): 95446345 ICD Code: I10 - ESSENTIAL (PRIMARY) HYPERTENSION Status: Chronic Current Visit: Yes Qualifiers: Hypertension type: essential hypertension Qualified Code(s): I10 - Essential (primary) hypertension (5) DM type 2 (diabetes mellitus, type 2) SNOMED Code(s): 19926670 ICD Code: E11.9 - TYPE 2 DIABETES MELLITUS WITHOUT COMPLICATIONS Status: Acute Current Visit: Yes Qualifiers: Diabetes mellitus jail insulin use: without jail use Diabetes mellitus complication status: without complication Qualified Code(s): E11.9 - Type 2 diabetes mellitus without complications (6) Depression with anxiety SNOMED Code(s): 883926259 ICD Code: F41.8 - OTHER SPECIFIED ANXIETY DISORDERS Status: Chronic Current Visit: Yes (7) Tobacco abuse SNOMED Code(s): 883424652 ICD Code: Z72.0 - TOBACCO USE Status: Chronic Current Visit: Yes - Patient Instructions Diet: GI Soft/Low Residue/Low Fiber Activity: No Strenuous Activities, Rest and Relax Today Showering/Bathing: May Shower Notify Provider of: Fever, Increased Pain, Swelling and Redness, Drainage, Nausea and/or Vomiting - Discharge Plan Prescriptions/Med Rec: Ciprofloxacin HCl [Cipro] 500 mg PO BID #22 tablet metroNIDAZOLE [Flagyl] 500 mg PO Q8H #33 tab Potassium Chloride [Klor-Con M20] 40 meq PO DAILY #6 tab.er Home Medications: Home Meds Citalopram Hydrobromide [Celexa] 40 mg PO DAILY 12/26/15 [History] Folic Acid 1 tab PO DAILY@1200 12/26/15 [History] Garlic 1,000 mg PO BEDTIME 12/26/15 [History] Lisinopril 40 mg PO DAILY 12/26/15 [History] Lutein/Min/Vit C/Vit E Acetate [Ocuvite Lutein] 1 tab PO DAILY 12/26/15 [History ] [place]-3/DHA/Epa/Fish Oil [[place]-3 Fish Oil 1,000 MG Sfgl] 1 tab PO BID 12/26/15 [History] Simvastatin [Zocor] 40 mg PO BEDTIME 12/26/15 [History] Vitamin B Complex 1 tab PO DAILY@1200 12/26/15 [History] traZODone HCl [Trazodone HCl] 150 mg PO BEDTIME 12/26/15 [History] Calcium Carbonate/Vitamin D3 [Calcium 600 + Vit D Tablet] 2 tab PO BID@1200, 2100 09/16/17 [History] Diltiazem HCl [Diltiazem 24Hr ER] 240 mg PO DAILY 09/16/17 [History] Fluticasone Propionate [Flonase] 2 spray NASBOTH DAILY PRN 09/16/17 [History] LORazepam 0.5 mg PO TID PRN 09/16/17 [History] Omeprazole 20 mg PO ACBREAKFAST 09/16/17 [History] Ciprofloxacin HCl [Cipro] 500 mg PO BID #22 tablet 09/19/17 [Rx] Potassium Chloride [Klor-Con M20] 40 meq PO DAILY #6 tab.er 09/19/17 [Rx] metroNIDAZOLE [Flagyl] 500 mg PO Q8H #33 tab 09/19/17 [Rx] Patient Handouts: Potassium Salts tablets, extended-release tablets or capsules , Diverticulitis, Nynt-ib-Enck, Colitis, Ciprofloxacin tablets, Metronidazole tablets or capsules Referrals: Jeramie Villa MD [Physician] - 10/08/17 10:00 am (needs follow up in 2-3 weeks for diverticular bleed and need for colonoscopy.) Naga Lewis MD [Physician] - 09/25/17 10:45 am (1 week follow up) - Discharge Summary/Plan Comment DC Time >30 min.: No Discharge Summary/Plan Comment: Discharge Diagnoses: Diverticulitis Colitis Blood per rectum HTN DM type 2, diet controlled Depression Anxiety Tobacco abuse Kendra was admitted and treated if IVFs, bowel rest as well as Ciprofloxacin and Flagyl for suspected diverticulitis with bleeding. Bleeding slow subsided, with hgb that remained stable, today 12.9. She has started having more formed stools , and last evening started noticing no further bloody stools. Abdominal cramping is better and she is tolerating [place] diet and eager for discharge home today. She has no complaints of abdominal pain. She will be sent home with 11 more days of Cipro and flagyl treatment. She was encouraged not to take NSAIDs and to limit alcohol use with antibiotics. She will be set up to see PCP, Dr Lewis in 1 week along with follow up with general surgery in 2-3 weeks for evaluation for colonoscopy due to diverticular bleeding. She is to return to the ED if abdominal pain returns/worsens, has fevers or bleeding reoccurs. She is to keep bland diet soft, low fiber for next week or two. She verbalized understanding. - General Info Date of Service: 09/19/17 Admission Dx/Problem (Free Text: Admission Diagnosis/Problem Admission Diagnosis/Problem Colitis, suspected diverticulitis with jennifer blood per rectum. Subjective Update: Feeling better this morning, eager for discharge. Starting to having back pain from laying so much. No chest pain or SOB. Abdominal pain much better, diarrhea is forming up and no longer noticing blood. Functional Status: Reports: Pain Controlled, Tolerating Diet, Ambulating, Urinating - Review of Systems General: Reports: No Symptoms. Denies: Weakness, Fatigue, Malaise HEENT: Reports: No Symptoms. Denies: Headaches, Sore Throat, Visual Changes Pulmonary: Reports: No Symptoms. Denies: Shortness of Breath, Cough, Sputum Cardiovascular: Reports: No Symptoms. Denies: Chest Pain, Edema Gastrointestinal: Reports: No Symptoms. Denies: Abdominal Pain, Nausea, Vomiting Genitourinary: Reports: No Symptoms. Denies: Dysuria, Frequency, Burning Musculoskeletal: Reports: No Symptoms Neurological: Reports: No Symptoms Psychiatric: Reports: No Symptoms - Patient Data Vitals - Most Recent: Last Vital Signs Temp 99.7 F 09/19/17 08:00 Pulse 64 09/19/17 08:36 Resp 18 09/19/17 08:00 BP 138/51 L 09/19/17 08:36 Pulse Ox 91 L 09/19/17 08:00 Weight - Most Recent: 65 kg I&O - Last 24 hours: Intake & Output 09/18/17 09/19/17 09/19/17 22:59 06:59 14:59 Intake Total 1539 1986 Output Total 2100 2150 Balance -561 -164 Lab Results - Last 24 hrs: Laboratory Results - last 24 hr 09/18/17 09/18/17 09/18/17 Range/Units 06:39 11:28 16:56 WBC (4.0-11.0) K/uL RBC (4.30-5.90) M/uL Hgb (12.0-16.0) g/dL Hct (36.0-46.0) % MCV (80.0-98.0) fL MCH (27.0-32.0) pg MCHC (31.0-37.0) g/dL RDW Std Deviation (28.0-62.0) fl RDW Coeff of Miguelito (11.0-15.0) % Plt Count (150-400) K/uL MPV (7.40-12.00) fL Neut % (Auto) (48.0-80.0) % Lymph % (Auto) (16.0-40.0) % [place] % (Auto) (0.0-15.0) % Eos % (Auto) (0.0-7.0) % Baso % (Auto) (0.0-1.5) % Neut # (Auto) (1.4-5.7) K/uL Lymph # (Auto) (0.6-2.4) K/uL [place] # (Auto) (0.0-0.8) K/uL Eos # (Auto) (0.0-0.7) K/uL Baso # (Auto) (0.0-0.1) K/uL Nucleated RBC % /100WBC Nucleated RBCs # K/uL Sodium (136-145) mmol/L Potassium (3.5-5.1) mmol/L Chloride (98-107) mmol/L Carbon Dioxide (21.0-32.0) mmol/L BUN (7.0-18.0) mg/dL Creatinine (0.6-1.0) mg/dL Est Cr Clr Drug Dosing mL/min Estimated GFR (MDRD) ml/min Glucose (74-106) mg/dL POC Glucose 162 H 147 H 183 H (60-110) mg/dL Calcium (8.5-10.1) mg/dL 09/19/17 09/19/17 Range/Units 05:24 05:24 WBC 14.07 H (4.0-11.0) K/uL RBC 4.13 L (4.30-5.90) M/uL Hgb 12.9 (12.0-16.0) g/dL Hct 37.3 (36.0-46.0) % MCV 90.3 (80.0-98.0) fL MCH 31.2 (27.0-32.0) pg MCHC 34.6 (31.0-37.0) g/dL RDW Std Deviation 38.2 (28.0-62.0) fl RDW Coeff of Miguelito 12 (11.0-15.0) % Plt Count 149 L (150-400) K/uL MPV 10.30 (7.40-12.00) fL Neut % (Auto) 79.2 (48.0-80.0) % Lymph % (Auto) 13.1 L (16.0-40.0) % [place] % (Auto) 7.2 (0.0-15.0) % Eos % (Auto) 0.4 (0.0-7.0) % Baso % (Auto) 0.1 (0.0-1.5) % Neut # (Auto) 11.1 H (1.4-5.7) K/uL Lymph # (Auto) 1.8 (0.6-2.4) K/uL [place] # (Auto) 1.0 H (0.0-0.8) K/uL Eos # (Auto) 0.1 (0.0-0.7) K/uL Baso # (Auto) 0.0 (0.0-0.1) K/uL Nucleated RBC % 0.0 /100WBC Nucleated RBCs # 0 K/uL Sodium 138 (136-145) mmol/L Potassium 3.1 L (3.5-5.1) mmol/L Chloride 105 (98-107) mmol/L Carbon Dioxide 25.9 (21.0-32.0) mmol/L BUN 2 L (7.0-18.0) mg/dL Creatinine 0.6 (0.6-1.0) mg/dL Est Cr Clr Drug Dosing 67.03 mL/min Estimated GFR (MDRD) > 60.0 ml/min Glucose 210 H (74-106) mg/dL POC Glucose (60-110) mg/dL Calcium 8.3 L (8.5-10.1) mg/dL MARCIA Results - Last 24 hrs: Microbiology 09/16/17 16:01 Aerobic Blood Culture - Preliminary Blood - Venous - Lab Draw NO GROWTH AFTER 2 DAYS Anaerobic Blood Culture - Preliminary NO GROWTH AFTER 2 DAYS 09/16/17 15:45 Aerobic Blood Culture - Preliminary Blood - Venous NO GROWTH AFTER 2 DAYS Anaerobic Blood Culture - Preliminary NO GROWTH AFTER 2 DAYS 09/16/17 16:35 Stool Culture - Final Stool / Feces NO SALMONELLA, SHIGELLA,OR E.COLI O157 ISOLATED Campylobacter Antigen Assay - Final NEGATIVE CAMPYLOBACTER AG - Final NEGATIVE FOR SHIGA TOXIN 1 - Final NEGATIVE FOR SHIGA TOXIN 2 Med Orders - Current: Current Medications Citalopram Hydrobromide (Celexa) 40 mg PO DAILY [facility] Last Admin: 09/19/17 08:34 Dose: 40 mg Diltiazem HCl (Cardizem Cd) 240 mg PO DAILY [facility] Last Admin: 09/19/17 08:36 Dose: 240 mg Fluticasone Propionate (Flonase) 0 gm NASBOTH DAILY PRN PRN Reason: Allergies Ciprofloxacin/Dextrose 400 mg/ (Premix) 200 mls @ 200 mls/hr IV Q12H [facility] Last Infusion: 09/19/17 05:25 Dose: Infused Metronidazole 500 mg/ Premix 100 mls @ 100 mls/hr IV QID [facility] Last Admin: 09/19/17 05:27 Dose: 100 mls/hr Sodium Chloride (Normal Saline) 1,000 mls @ 75 mls/hr IV ASDIRECTED [facility] Last Admin: 09/19/17 03:00 Dose: 75 mls/hr Lisinopril (Prinivil) 40 mg PO DAILY [facility] Last Admin: 09/19/17 08:35 Dose: 40 mg Lorazepam (Ativan) 0.5 mg PO TID PRN PRN Reason: Anxiety Morphine Sulfate (Morphine) 2 mg IVPUSH Q2H PRN PRN Reason: Pain (severe 7-10) Last Admin: 09/19/17 07:30 Dose: 2 mg Nicotine (Habitrol) 21 mg TRDERM Q24H [facility] Last Admin: 09/18/17 18:10 Dose: 21 mg Ondansetron HCl (Zofran) 4 mg IVPUSH Q4H PRN PRN Reason: Nausea Last Admin: 09/16/17 18:31 Dose: 4 mg Potassium Chloride (Klor-Con M20) 40 meq PO DAILY [facility] Last Admin: 09/19/17 08:34 Dose: 40 meq Simvastatin (Zocor) 40 mg PO BEDTIME [facility] Last Admin: 09/18/17 20:28 Dose: 40 mg Trazodone HCl (Trazodone) 150 mg PO BEDTIME [facility] Last Admin: 09/18/17 20:27 Dose: 150 mg Discontinued Medications Sodium Chloride (Normal Saline) 1,000 mls @ 999 mls/hr IV STAT ONE Stop: 09/16/17 14:58 Last Admin: 09/16/17 14:16 Dose: 999 mls/hr Ciprofloxacin/Dextrose 400 mg/ (Premix) 200 mls @ 200 mls/hr IV NOW STA Stop: 09/16/17 16:35 Last Admin: 09/16/17 17:28 Dose: 200 mls/hr Metronidazole 500 mg/ Premix 100 mls @ 100 mls/hr IV ONETIME ONE Stop: 09/16/17 16:35 Last Admin: 09/16/17 16:07 Dose: 100 mls/hr Sodium Chloride (Normal Saline) 1,000 mls @ 125 mls/hr IV ASDIRECTED [facility] Last Admin: 09/18/17 03:17 Dose: 125 mls/hr Potassium Chloride (Klor-Con M20) 40 meq PO ONETIME ONE Stop: 09/18/17 16:31 Last Admin: 09/18/17 16:54 Dose: 40 meq - Exam General: Reports: Alert, Oriented, Cooperative, No Acute Distress Neck: Reports: Supple Lungs: Reports: Clear to Auscultation, Normal Respiratory Effort Cardiovascular: Reports: Regular Rate, Regular Rhythm GI/Abdominal Exam: Normal Bowel Sounds, Soft, Non-Tender, No Organomegaly, No Distention, No Abnormal Bruit, No Mass, Pelvis Stable Back Exam: Reports: Normal Inspection, Full Range of Motion Extremities: Normal Inspection, Normal Range of Motion, Non-Tender, No Pedal Edema, Normal Capillary Refill Neurological: Reports: No New Focal Deficit Psy/Mental Status: Reports: Alert, Normal Affect, Normal Mood *Q Meaningful Use (DIS) - VTE *Q VTE Pharmacological Contraindications *Q: Risk of Bleeding
== END 2017-09-19 11:50 | disposition home or self-care (01) | DRG 379 ==
LOC: MW.ED 13:36 → MW.MS 15:53
PROVIDERS: ADMIT Internal Medicine; ATTEND Internal Medicine
DX: K92.1 Melena (principal); K57.32 Diverticulitis of large intestine without perforation or abscess without bleeding; K57.33 Diverticulitis of large intestine without perforation or abscess with bleeding; K52.9 Noninfective gastroenteritis and colitis, unspecified; I10 Essential (primary) hypertension; E11.9 Type 2 diabetes mellitus without complications; F41.8 Other specified anxiety disorders; F32.9 Major depressive disorder, single episode, unspecified; E78.00 Pure hypercholesterolemia, unspecified; J44.9 Chronic obstructive pulmonary disease, unspecified; K21.9 Gastro-esophageal reflux disease without esophagitis; K44.9 Diaphragmatic hernia without obstruction or gangrene; F17.200 Nicotine dependence, unspecified, uncomplicated; Z79.899 Other long term (current) drug therapy; Z88.0 Allergy status to penicillin; Z91.041 Radiographic dye allergy status; Z88.8 Allergy status to other drugs, medicaments and biological substances
CPT/HCPCS: 36415; 74176; 74176-26; 80048; 80053; 81001; 82962; 85014; 85018; 85025; 85610; 87040; 87046; 87324; 87899; 96361; 96365; 99284-25; A9270-GY; J0744; J2270; J2405; J7040

== ENCOUNTER 2017-11-10 09:57 | Day surgery (SDC) | payer MEDICARE, OTHER ==
[~2017-11-10 09:57] MED LIST: Lactated Ringers 1,000 ML IV SCH; Midazolam 1 MG/ML 2 ML SDV ONE; Propofol 200 MG/20 ML SDV ONE; fentaNYL 100 MCG/2 ML SDV ONE
--- NOTE | 2017-11-10 10:53 | PCM.PREANE ---
Preanesthetic Assessment - Anesthesia/Transfusion/Family Hx Anesthesia History: Prior Anesthesia Without Reaction Other Type of Anesthesia Reaction Comment: tachycardia Family History of Anesthesia Reaction: No Transfusion History: No Prior Transfusion(s) - Review of Systems General: No Symptoms Cardiovascular: No Symptoms Neurological: No Symptoms - Physical Assessment NPO Status Date: 11/09/17 NPO Status Time: 21:00 O2 Sat by Pulse Oximetry: 97 Respiratory Rate: 16 Vital Signs: Last Vital Signs Temp 36.3 C 11/10/17 10:43 Pulse 55 L 11/10/17 10:43 Resp 16 11/10/17 10:43 BP 142/69 H 11/10/17 10:43 Pulse Ox 97 11/10/17 10:43 Height: 1.6 m Weight: 59.874 kg ASA Class: 3 Mental Status: Alert & Oriented x3 Airway Class: Mallampati = 2 Lungs: Normal Respiratory Effort Cardiovascular: Regular Rate, Regular Rhythm - Allergies Allergies/Adverse Reactions: Allergies Allergy/AdvReac Type Severity Reaction Status Date / Time cephalexin [From Keflex] Allergy Itching Verified 11/05/17 10:26 Iodinated Contrast- Oral and Allergy Itching Verified 11/05/17 10:26 IV Dye [Iodinated Contrast Media - IV Dye] Penicillins Allergy Edema Verified 11/05/17 10:26 - Acknowledgements Anesthesia Type Planned: MAC Pt an Appropriate Candidate for the Planned Anesthesia: Yes Alternatives and Risks of Anesthesia Discussed w Pt/Guardian: Yes Pt/Guardian Understands and Agrees with Anesthesia Plan: Yes Additional Comments: PMH: COPD, uses inhalers, HTN, DM@-diet controlled, anxiety-onativan. 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: Musculoskeletal History: Reports: Arthritis Neurological History: Reports: Other (See Below) Other Neuro History: hx head injury Psychiatric History: Reports: Anxiety Endocrine/Metabolic History: Reports: Diabetes, Type II Other Endocrine/Metabolic History: diet controlled type II diabetes Hematologic History: Reports: None Immunologic History: Reports: None Oncologic (Cancer) History: Reports: None Dermatologic History: Reports: Other (See Below) Other Dermatologic History: rash to back - Past Surgical History Head Surgeries/Procedures: Reports: None Cardiovascular Surgical History: Reports: Cardiac Ablation GI Surgical History: Reports: Colonoscopy Other GI Surgeries/Procedures: hx rectal fistulectomy Female Surgical History: Reports: Hysterectomy, Other (See Below) Other Female Surgeries/Procedures: excision of chula anal fistula, axillary lumpectomy - SUBSTANCE USE Smoking Status *Q: Former Smoker Tobacco Use Within Last Twelve Months: Cigarettes Recreational Drug Use History: No - HOME MEDS Home Medications: Home Meds Citalopram Hydrobromide [Celexa] 40 mg PO DAILY 12/26/15 [History] Folic Acid 1 tab PO DAILY@1200 12/26/15 [History] Garlic 1,000 mg PO BEDTIME 12/26/15 [History] Lisinopril 40 mg PO DAILY 12/26/15 [History] Lutein/Min/Vit C/Vit E Acetate [Ocuvite Lutein] 1 tab PO DAILY 12/26/15 [History ] [place]-3/DHA/Epa/Fish Oil [[place]-3 Fish Oil 1,000 MG Sfgl] 1 tab PO BID 12/26/15 [History] Simvastatin [Zocor] 40 mg PO BEDTIME 12/26/15 [History] Vitamin B Complex 1 tab PO DAILY@1200 12/26/15 [History] traZODone HCl [Trazodone HCl] 150 mg PO BEDTIME 12/26/15 [History] Calcium Carbonate/Vitamin D3 [Calcium 600 + Vit D Tablet] 2 tab PO BID@1200, 2100 09/16/17 [History] Diltiazem HCl [Diltiazem 24Hr ER] 240 mg PO DAILY 09/16/17 [History] Fluticasone Propionate [Flonase] 1 spray NASBOTH DAILY PRN 09/16/17 [History] LORazepam 0.5 mg PO TID PRN 09/16/17 [History] Omeprazole 20 mg PO ACBREAKFAST 09/16/17 [History] Cyclobenzaprine HCl 1 tab PO TID PRN 11/05/17 [History] Docusate Sodium 1 tab PO ASDIRECTED PRN 11/05/17 [History] Levalbuterol Tartrate [Xopenex Hfa] 2 puff INH ASDIRECTED 11/05/17 [History] Nicotine [Nicotine Patch] 1 patch TRDERM ASDIRECTED 11/05/17 [History] Triamcinolone Acetonide [Triamcinolone Acetonide 0.1% Crm] 1 applic TOP ASDIRECTED PRN 11/05/17 [History] - CURRENT (IN HOUSE) MEDS Current Meds: Current Medications Lactated Ringer's (Ringers, Lactated) 1,000 mls @ 125 mls/hr IV ASDIRECTED [facility]ATHY Last Admin: 11/10/17 10:25 Dose: 125 mls/hr Discontinued Medications Fentanyl (Sublimaze) Confirm Administered Dose 100 mcg .ROUTE .STK-MED ONE Stop: 11/10/17 08:33 Midazolam HCl (Versed 1 Mg/Ml) Confirm Administered Dose 2 mg .ROUTE .STK-MED ONE Stop: 11/10/17 08:33 Propofol (Diprivan 20 Ml) Confirm Administered Dose 200 mg .ROUTE .STK-MED ONE Stop: 11/10/17 08:33
[2017-11-10] MEDS ORDERED: Glycopyrrolate 0.2 MG/ML SDV ONE (11:39)
[2017-11-10] MEDS ORDERED: ePHEDrine 50 MG/ML SDV ONE (11:41)
[2017-11-10] MEDS ORDERED: Propofol 200 MG/20 ML SDV ONE (11:57)
--- NOTE | 2017-11-10 12:10 | PCM.OPNOTE ---
- General Post-Op/Procedure Note Date of Surgery/Procedure: 11/10/17 Operative Procedure(s): Colonoscopy Pre Op Diagnosis: Rectal bleeding. Abdominal pain. Post-Op Diagnosis: Severe sigmoid diverticulosis Anesthesia Technique: MAC (ASA III) Primary Surgeon: Jeramie Villa Condition: Good Free Text/Narrative:: DICTATION [id number] CPT CODE 31593
[2017-11-10] MEDS ORDERED: Lactated Ringers 1,000 ML IV SCH (12:15)
--- NOTE | 2017-11-10 12:45 | PCM.POSTAN ---
POST ANESTHESIA ASSESSMENT - MENTAL STATUS Mental Status: Alert, Oriented - RESPIRATORY Respiratory Status: Respiratory Rate WNL - CARDIOVASCULAR CV Status: Pulse Rate WNL, Blood Pressure Stable - GASTROINTESTINAL GI Status: No Symptoms - PAIN Pain Score: 0 - POST OP HYDRATION Hydration Status: Adequate & Stable - OBSERVATIONS Free Text/Narrative:: no anesthesia problems
--- NOTE | 2017-11-10 12:45 | OR ---
SURGEON: Jeramie Villa M.D. DATE OF PROCEDURE: 11/10/2017 OPERATION PERFORMED: Colonoscopy. ANESTHESIA: MAC. ASA CLASSIFICATION: III. PREOPERATIVE DIAGNOSIS: Abdominal pain with rectal bleeding. POSTOPERATIVE DIAGNOSIS: Severe sigmoid diverticulosis. DESCRIPTION OF PROCEDURE: The patient was taken to the endoscopy room and positioned on the endoscopy table in the left lateral decubitus position. Time-out was called for appropriate identification of the patient and procedure. Monitored anesthesia care was provided. The colonoscope was inserted into the rectum and advanced with moderate difficulty to the cecum where the colonoscope was retroflexed to visualize the ascending colon from below. The colonoscope was then straightened and slowly withdrawn. The cecum, ascending colon, hepatic flexure, transverse colon, splenic flexure, and descending colon showed no tumors, polyps, diverticula, angiodysplasia, or evidence of inflammatory bowel disease. Sigmoid colon demonstrates severe diverticular change. No stricture, spasm, or bleeding was noted. No polyps were encountered in the sigmoid colon. The colonoscope was withdrawn to the rectum and retroflexed to visualize the anal orifice from above. Again no tumors or polyps were seen and there were no acute hemorrhoidal changes. The colonoscope was then straightened, the rectum aspirated, and the colonoscope removed. The patient tolerated the procedure well and was taken to recovery room in stable condition. ERENDIRA HOOKS /[id number]
--- NOTE | 2017-11-10 12:52 | PCM48HPAN ---
Post Anesthesia Note - EVALUATION WITHIN 48HRS OF ANESTHETIC Vital Signs in Normal Range: Yes Patient Participated in Evaluation: Yes Respiratory Function Stable: Yes Airway Patent: Yes Cardiovascular Function Stable: Yes Hydration Status Stable: Yes Pain Control Satisfactory: Yes Nausea and Vomiting Control Satisfactory: Yes Mental Status Recovered: Yes Resp Rate: 12
[2017-11-10 14:38] VITALS: BP 138/77
== END 2017-11-10 13:00 | disposition home or self-care (01) ==
LOC: MW.SDS 09:57
PROVIDERS: ATTEND Surgery
PROC: 0DJD8ZZ Inspection of Lower Intestinal Tract, Via Natural or Artificial Opening Endoscopic (ICD-10-PCS; principal; 2017-11-10)
DX: R10.9 Unspecified abdominal pain (principal); K57.30 Diverticulosis of large intestine without perforation or abscess without bleeding; J44.9 Chronic obstructive pulmonary disease, unspecified; I10 Essential (primary) hypertension; E11.9 Type 2 diabetes mellitus without complications; F17.200 Nicotine dependence, unspecified, uncomplicated; Z88.0 Allergy status to penicillin; Z88.1 Allergy status to other antibiotic agents; Z91.041 Radiographic dye allergy status; Z79.899 Other long term (current) drug therapy
CPT/HCPCS: 45378; J2250; J3010; J7120; J2704

== ENCOUNTER 2018-06-29 23:24 | Observation (INO) | payer MEDICARE, OTHER ==
[2018-06-29] MEDS ORDERED: Sodium Chloride 0.9% 10 ML Syringe FLUSH PRN (23:44)
[2018-06-29] MEDS ORDERED: Ondansetron 4 MG/2 ML SDV IVPUSH ONE (23:44)
[2018-06-29] MEDS ORDERED: Ketorolac 30 MG/ML SDV IVPUSH ONE (23:44)
[2018-06-29] MEDS ORDERED: Sodium Chloride 0.9% 2.5 ML Syringe FLUSH PRN (23:44)
[2018-06-29] MEDS ORDERED: Sodium Chloride 0.9% 1,000 ML IV ONE (23:44)
--- NOTE | 2018-06-29 23:49 | EDM.PDOC ---
ED HPI GENERAL MEDICAL PROBLEM - General Chief Complaint: Upper Extremity Injury/Pain Stated Complaint: PT FELL AND HURT LT SHOULDER Time Seen by Provider: 06/29/18 23:32 - History of Present Illness INITIAL COMMENTS - FREE TEXT/NARRATIVE: HISTORY AND PHYSICAL: History of present illness: The patient is a 72-year-old female who follows at [facility] and has a history of hypertension hypercholesterolemia and is a weekly drinker and presents after she got a little bit woozy and fell landing onto her left shoulder. She says she didn't hit her head pass out or blackout which is not entirely clear if that was true or not she denies any head neck or back pain and has only pain to the anterior aspect of her left shoulder. She said she was having a normal day earlier and ate normally and had her usual 6- 8 cocktails that she does a few times a week. She normally goes to the [facility]. The patient said she had no vomiting or diarrhea fever chills or upper respiratory symptoms but on arrival here the patient did have vomiting of fluid which was 600 mL and it was not black or bloody. The patient says she has no right-sided upper extremity complaints and no lower extremity complaints. She says her lower back does not hurt her either. She did not receive any medication in route per EMS. Currently she says she does not feel nauseated she just has pain in her shoulder and she is in a sling. She has no distal elbow forearm wrist or hand pain and no neurosensory changes in that hand. When I ask her why she got woozy and fell she says that she is not dizzy and she says that she thinks is just because she may have drank too much Review of systems: As per history of present illness and below otherwise all systems reviewed and negative. Past medical history: As per history of present illness and as reviewed below otherwise noncontributory. Surgical history: As per history of present illness and as reviewed below otherwise noncontributory. Social history: No reported history of drug or alcohol abuse. Family history: As per history of present illness and as reviewed below otherwise noncontributory. Physical exam: General: Well-developed well-nourished thin female who is nontoxic and vital signs are noted by me. The patient is bradycardic and says she has a history of same and per the computer on her last admission here last spring she was with a heart rate in the 50s and 60's HEENT: Atraumatic, normocephalic, pupils reactive, negative for conjunctival pallor or scleral icterus, mucous membranes moist, throat clear, neck supple, nontender, trachea midline. There is no evidence of any facial defects deformities or soft tissue swelling nor is there any changes on the scalp. There are no midline step-offs tenderness defects of the cervical spine Lungs: Clear to auscultation, breath sounds equal bilaterally, chest nontender. Heart: S1S2, regular rhythm slightly bradycardic rate on my evaluation and no overt murmurs Abdomen: Soft, nondistended, nontender. Negative for masses or hepatosplenomegaly. Negative for costovertebral tenderness. Pelvis: Stable nontender. No lateral hip tenderness Genitourinary: Deferred. Rectal: Deferred. Extremities: Atraumatic, with full range of motion of all extremities with the exception of the left shoulder where there is a moderate amount of soft tissue swelling at the anterior aspect and tenderness with palpation. There is no gross malalignment appreciated in the clavicle is nontender. Her some slight tenderness of the scapula without swelling defects or soft tissue swelling or changes. The distal humerus elbow forearm wrist and hand are all intact nontender and no soft tissue swellings are appreciated. Neurovascular unremarkable. Neuro: Awake, alert, oriented. Cranial nerves II through XII unremarkable. Motor and sensory unremarkable throughout. Exam nonfocal. 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 She is unsure if this will be an operative case or medical management but she agrees with observation admission to either her or the hospitalist with the other on consult due to the patient's history of medical problems and alcohol use. 0117: Case was discussed with Dr. Baldwin our hospitalist will admit the patient and Dr. Hill will be on consult. Dr. Hill is also aware of this choice. I discussed all testing results with the patient and will give her some morphine for pain as well as maintenance fluid and some ice chips. Impression: Fall with left shoulder injury-angulated displaced proximal humeral fracture left, recent alcohol use, history of hypertension hypercholesterolemia Definitive disposition and diagnosis as appropriate pending reevaluation and review of above. Left Shoulder Pain Score (Numeric/FACES): 6 - Related Data Allergies Allergy/AdvReac Type Severity Reaction Status Date / Time cephalexin [From Keflex] Allergy Itching Verified 06/29/18 23:33 Iodinated Contrast- Oral and Allergy Itching Verified 06/29/18 23:33 IV Dye [Iodinated Contrast Media - IV Dye] Penicillins Allergy Edema Verified 06/29/18 23:33 Home Meds: Home Meds Citalopram Hydrobromide [Celexa] 40 mg PO DAILY 12/26/15 [History] Folic Acid 1 tab PO DAILY@1200 12/26/15 [History] Garlic 1,000 mg PO BEDTIME 12/26/15 [History] Lisinopril 40 mg PO DAILY 12/26/15 [History] Lutein/Min/Vit C/Vit E Acetate [Ocuvite Lutein] 1 tab PO DAILY 12/26/15 [History ] [place]-3/DHA/Epa/Fish Oil [[place]-3 Fish Oil 1,000 MG Sfgl] 1 tab PO BID 12/26/15 [History] Simvastatin [Zocor] 40 mg PO BEDTIME 12/26/15 [History] Vitamin B Complex 1 tab PO DAILY@1200 12/26/15 [History] traZODone HCl [Trazodone HCl] 150 mg PO BEDTIME 12/26/15 [History] Calcium Carbonate/Vitamin D3 [Calcium 600 + Vit D Tablet] 2 tab PO BID@1200, 2100 09/16/17 [History] Diltiazem HCl [Diltiazem 24Hr ER] 120 mg PO DAILY 09/16/17 [History] Fluticasone Propionate [Flonase] 1 spray NASBOTH DAILY PRN 09/16/17 [History] LORazepam 0.5 mg PO TID PRN 09/16/17 [History] Omeprazole 20 mg PO ACBREAKFAST 09/16/17 [History] Docusate Sodium 1 tab PO ASDIRECTED PRN 11/05/17 [History] Levalbuterol Tartrate [Xopenex Hfa] 2 puff INH ASDIRECTED 11/05/17 [History] Past Medical History HEENT History: Reports: Hard of Hearing, Impaired Vision, Other (See Below) Other HEENT History: wears glasses, top denture, lower partial, ayan hearing aids Cardiovascular History: Reports: Arrhythmia, Hypertension Respiratory History: Reports: COPD Gastrointestinal History: Reports: Diverticulosis, GERD Other Gastrointestinal History: diverticulitis Genitourinary History: Reports: None [employer] History: Reports: Musculoskeletal History: Reports: Arthritis Neurological History: Reports: Other (See Below) Other Neuro History: hx head injury Psychiatric History: Reports: Anxiety Endocrine/Metabolic History: Reports: Diabetes, Type II Other Endocrine/Metabolic History: diet controlled type II diabetes Hematologic History: Reports: None Immunologic History: Reports: None Oncologic (Cancer) History: Reports: None Dermatologic History: Reports: Other (See Below) Other Dermatologic History: rash to back - Past Surgical History Head Surgeries/Procedures: Reports: None Cardiovascular Surgical History: Reports: Cardiac Ablation GI Surgical History: Reports: Colonoscopy Other GI Surgeries/Procedures: hx rectal fistulectomy Female Surgical History: Reports: Hysterectomy, Other (See Below) Other Female Surgeries/Procedures: excision of chula anal fistula, axillary lumpectomy Social & Family History - Family History Family Medical History: Noncontributory - Tobacco Use Smoking Status *Q: Current Every Day Smoker Years of Tobacco use: 57 Packs/Tins Daily: 1.5 - Caffeine Use Caffeine Use: Reports: Other - Recreational Drug Use Recreational Drug Use: No - Living Situation & Occupation Occupation: Retired Review of Systems - Review of Systems Review Of Systems: ROS reveals no pertinent complaints other than HPI. ED EXAM, GENERAL - Physical Exam Exam: See Below (See dictation) Course - Vital Signs Last Recorded V/S: Last Vital Signs Temp 36.1 C 06/30/18 01:17 Pulse 48 L 06/30/18 01:17 Resp 18 06/30/18 01:17 BP 133/61 06/30/18 01:17 Pulse Ox 96 06/30/18 01:17 - Orders/Labs/Meds Orders: Active Orders 24 hr Category Date Time Status Patient Status [ADT] Stat ADT 06/30/18 01:17 Ordered Blood Glucose Check, Bedside [RC] ONETIME Care 06/29/18 23:43 Active Cardiac Monitoring [RC] . DIRECTED Care 06/29/18 23:43 Active EKG Documentation Completion [RC] STAT Care 06/29/18 23:43 Active Notify Provider Consults [RC] ASDIRECTED Care 06/30/18 01:18 Ordered Oxygen Therapy, ED [RC] ASDIRECTED Care 06/29/18 23:43 Active Pulse Oximetry [RC] ASDIRECTED Care 06/29/18 23:43 Active Consult to Physician [CONS] Stat Cons 06/30/18 01:18 Ordered UA RFX MARCIA AND CULT IF INDIC [URIN] Stat Lab 06/29/18 23:43 Ordered Sodium Chloride 0.9% [Normal Saline] 1,000 ml Med 06/30/18 01:15 Active IV ASDIRECTED Sodium Chloride 0.9% [Saline Flush] Med 06/29/18 23:44 Active 10 ml FLUSH ASDIRECTED PRN Sodium Chloride 0.9% [Saline Flush] Med 06/29/18 23:44 Active 2.5 ml FLUSH ASDIRECTED PRN DME for Discharge [COMM] Stat Oth 06/30/18 01:09 Ordered Saline Lock Insert [OM.PC] Stat Oth 06/29/18 23:43 Ordered Medication Orders Sodium Chloride (Normal Saline) 1,000 mls @ 125 mls/hr IV ASDIRECTED KATHY Sodium Chloride (Saline Flush) 10 ml FLUSH ASDIRECTED PRN PRN Reason: Keep Vein Open Sodium Chloride (Saline Flush) 2.5 ml FLUSH ASDIRECTED PRN PRN Reason: Keep Vein Open Labs: Laboratory Tests 06/30/18 06/30/18 06/30/18 Range/Units 00:05 00:05 00:05 WBC 7.90 (4.0-11.0) K/uL RBC 4.88 (4.30-5.90) M/uL Hgb 15.7 (12.0-16.0) g/dL Hct 43.4 (36.0-46.0) % MCV 88.9 (80.0-98.0) fL MCH 32.2 H (27.0-32.0) pg MCHC 36.2 (31.0-37.0) g/dL RDW Std Deviation 37.9 (28.0-62.0) fl RDW Coeff of Miguelito 12 (11.0-15.0) % Plt Count 226 (150-400) K/uL MPV 10.20 (7.40-12.00) fL Neut % (Auto) 56.9 (48.0-80.0) % Lymph % (Auto) 33.5 (16.0-40.0) % Dickenson % (Auto) 8.0 (0.0-15.0) % Eos % (Auto) 1.3 (0.0-7.0) % Baso % (Auto) 0.3 (0.0-1.5) % Neut # (Auto) 4.5 (1.4-5.7) K/uL Lymph # (Auto) 2.7 H (0.6-2.4) K/uL Dickenson # (Auto) 0.6 (0.0-0.8) K/uL Eos # (Auto) 0.1 (0.0-0.7) K/uL Baso # (Auto) 0.0 (0.0-0.1) K/uL Nucleated RBC % 0.0 /100WBC Nucleated RBCs # 0 K/uL INR 1.03 Sodium 128 L (136-145) mmol/L Potassium 4.3 (3.5-5.1) mmol/L Chloride 94 L (98-107) mmol/L Carbon Dioxide 24.7 (21.0-32.0) mmol/L BUN 9 (7.0-18.0) mg/dL Creatinine 0.6 (0.6-1.0) mg/dL Est Cr Clr Drug Dosing 67.03 mL/min Estimated GFR (MDRD) > 60.0 ml/min Glucose 131 H (74-106) mg/dL Calcium 9.4 (8.5-10.1) mg/dL Total Bilirubin 0.4 (0.2-1.0) mg/dL AST 29 (15-37) IU/L ALT 29 (14-63) IU/L Alkaline Phosphatase 78 (46-116) U/L Total Protein 7.4 (6.4-8.2) g/dL Albumin 3.9 (3.4-5.0) g/dL Globulin 3.5 (2.6-4.0) g/dL Albumin/Globulin Ratio 1.1 (0.9-1.6) Ethyl Alcohol 166 mg/dL Meds: Medications Generic Name Dose Route Start Last Admin Trade Name Freq PRN Reason Stop Dose Admin Sodium Chloride 1,000 mls @ 125 mls/hr 06/30/18 01:15 Normal Saline IV ASDIRECTED KATHY Sodium Chloride 10 ml 06/29/18 23:44 Saline Flush FLUSH ASDIRECTED PRN Keep Vein Open Sodium Chloride 2.5 ml 06/29/18 23:44 Saline Flush FLUSH ASDIRECTED PRN Keep Vein Open Discontinued Medications Generic Name Dose Route Start Last Admin Trade Name Freq PRN Reason Stop Dose Admin Sodium Chloride 1,000 mls @ 999 mls/hr 06/29/18 23:44 06/30/18 00:07 Normal Saline IV 06/30/18 00:44 999 mls/hr STAT ONE Administration Ketorolac Tromethamine 30 mg 06/29/18 23:44 06/30/18 00:07 Toradol IVPUSH 06/29/18 23:45 30 mg ONETIME ONE Administration Morphine Sulfate 2 mg 06/30/18 01:09 06/30/18 01:13 Morphine IVPUSH 06/30/18 01:10 2 mg ONETIME ONE Administration Ondansetron HCl 4 mg 06/29/18 23:44 06/30/18 00:06 Zofran IVPUSH 06/29/18 23:45 4 mg ONETIME ONE Administration Departure - Departure Time of Disposition: 01:20 Disposition: Refer to Observation Condition: Good Clinical Impression: Fracture closed, humerus Qualifiers: Encounter type: initial encounter Humerus Location: proximal Fracture morphology: unspecified fracture morphology Laterality: left Qualified Code(s): S42.202A - Unspecified fracture of upper end of left humerus, initial encounter for closed fracture Fall Qualifiers: Encounter type: initial encounter Qualified Code(s): W19.XXXA - Unspecified fall, initial encounter - Discharge Information Referrals: PCP,None [Primary Care Provider] - Forms: ED Department Discharge - My Orders Last 24 Hours: My Active Orders 06/29/18 23:43 Blood Glucose Check, Bedside [RC] ONETIME Cardiac Monitoring [RC] . DIRECTED EKG Documentation Completion [RC] STAT Oxygen Therapy, ED [RC] ASDIRECTED Pulse Oximetry [RC] ASDIRECTED UA RFX MARCIA AND CULT IF INDIC [URIN] Stat Saline Lock Insert [OM.PC] Stat 06/29/18 23:44 Sodium Chloride 0.9% [Saline Flush] 10 ml FLUSH ASDIRECTED PRN Sodium Chloride 0.9% [Saline Flush] 2.5 ml FLUSH ASDIRECTED PRN 06/30/18 01:09 DME for Discharge [COMM] Stat 06/30/18 01:15 Sodium Chloride 0.9% [Normal Saline] 1,000 ml IV ASDIRECTED 06/30/18 01:17 Patient Status [ADT] Stat 06/30/18 01:18 Notify Provider Consults [RC] ASDIRECTED Consult to Physician [CONS] Stat - Assessment/Plan Last 24 Hours: My Active Orders 06/29/18 23:43 Blood Glucose Check, Bedside [RC] ONETIME Cardiac Monitoring [RC] . DIRECTED EKG Documentation Completion [RC] STAT Oxygen Therapy, ED [RC] ASDIRECTED Pulse Oximetry [RC] ASDIRECTED UA RFX MARCIA AND CULT IF INDIC [URIN] Stat Saline Lock Insert [OM.PC] Stat 06/29/18 23:44 Sodium Chloride 0.9% [Saline Flush] 10 ml FLUSH ASDIRECTED PRN Sodium Chloride 0.9% [Saline Flush] 2.5 ml FLUSH ASDIRECTED PRN 06/30/18 01:09 DME for Discharge [COMM] Stat 06/30/18 01:15 Sodium Chloride 0.9% [Normal Saline] 1,000 ml IV ASDIRECTED 06/30/18 01:17 Patient Status [ADT] Stat 06/30/18 01:18 Notify Provider Consults [RC] ASDIRECTED Consult to Physician [CONS] Stat
[2018-06-30 00:41] LABS: CHLORIDE,CL 94 mmol/L (98-107); SODIUM,NA 128 mmol/L (136-145)
--- NOTE | 2018-06-30 00:53 | CR ---
INDICATION: Shoulder pain following fall TECHNIQUE: Shoulder radiograph 2 views left COMPARISON: None FINDINGS: Bone: There is an angulated, displaced fracture of the left humeral diaphysis noted. Joint: The glenohumeral is unremarkable. The acromioclavicular joint is unremarkable. Soft tissue: Unremarkable. The visualized hemithorax is unremarkable in appearance. No radiopaque foreign bodies are seen. IMPRESSION: 1. There is an angulated, displaced fracture of the left humeral diaphysis noted. Dictated by Robert Nesbitt MD @ 06/30/2018 12:51:50 AM Dictated by: Robert Nesbitt MD @ 06/30/2018 00:51:52 (Electronically Signed)
--- NOTE | 2018-06-30 00:53 | CT ---
INDICATION: Pain after fall TECHNIQUE: CT head without contrast. COMPARISON: None. FINDINGS: CSF spaces: Within normal limits for age. Brain parenchyma: Esqueda-white differentiation is within normal limits. Minimal low density in the deep white matter. Skull base and calvarium: Atherosclerosis. Mild mucosal thickening paranasal sinuses. IMPRESSION: 1. No intracranial bleed or mass effect. 2. Minimal nonspecific white matter disease, likely microangiopathy. Please note that all CT scans at this facility use dose modulation, iterative reconstruction, and/or weight-based dosing when appropriate to reduce radiation dose to as low as reasonably achievable. Dictated by López Connelly MD @ Jun 30 2018 12:49AM Signed by Dr. López Connelly @ Jun 30 2018 12:52AM
--- NOTE | 2018-06-30 00:53 | CR ---
INDICATION: Chest pain following fall TECHNIQUE: Chest radiograph 1 view COMPARISON: None FINDINGS: Mediastinum: The mediastinum is normal in appearance. The heart silhouette is normal in size and morphology. Lung: Both lungs are unremarkable in appearance. No sign of pleural effusion seen. No pneumothorax is identified. Musculoskeletal: There is a displaced fracture of the left proximal humerus noted. IMPRESSION: 1. There is a displaced fracture of the left proximal humerus noted. Dictated by Robert Nesbitt MD @ 06/30/2018 12:51:19 AM Dictated by: Robert Nesbitt MD @ 06/30/2018 00:51:23 (Electronically Signed)
[2018-06-30] MEDS ORDERED: Morphine 2 MG/ML Syringe IVPUSH ONE (01:09)
[2018-06-30] MEDS: Sodium Chloride 0.9% 1,000 ML IV SCH ×2 (01:43→10:12)
[2018-06-30] MEDS ORDERED: Morphine 2 MG/ML Syringe IVPUSH PRN (02:37)
[2018-06-30 06:05] LABS: CHLORIDE,CL 101 mmol/L (98-107); SODIUM,NA 132 mmol/L (136-145)
--- NOTE | 2018-06-30 08:10 | PCM.HP ---
H&P History of Present Illness - General Date of Service: 06/30/18 Admit Problem/Dx: Admission Diagnosis/Problem Admission Diagnosis/Problem Fracture of humerus Source of Information: Patient History Limitations: Reports: No Limitations - History of Present Illness Initial Comments - Free Text/Narative: THis 72 year old female with pmh of HTN, HLD, tobacco abuse, alcohol abuse and diverticulitis presented to the ED with complaints of L arm pain after she fell last evening. She reports she was in the [employer] bar having some beer, went outside to her car to have her cigarette. She got out of her car and walked around it up the curb and the fell in front of the door to the [employer]. She denies dizziness, lightheadedness prior to the fall. She reports she remembers falling and landing right on her L arm and having instant pain. She denies hitting her head or LOC. She reports otherwise feeling well prior to fall. She reports she has been having some intermittent dizziness at home, not associated with alcohol use. She states it comes an goes and is when she is lying in bed, she feels like the room is spinning. She denies chest pain or SOB. No cough or fevers at home. NO abdominal pain, no black or bloody BMs. SHe reports moking 1.5 ppd for 55+ years. Drinks alcohol daily, but no consistently. She reports she is able to go a week without drinking and does not experience withdrawl symptoms or seizures. She denies recreational drug use. In the ED CBC WNL, Na 128, ETOH 166. UA negative. CXR negative for cardiopulmonary process, L huers fracture noted. Dr Hill consulted recommended admission for pain control and possible surgical fixation if warranted when evaluate in AM. PCP, Dr Naga Lewis. Left Shoulder Pain Score (Numeric/FACES): 6 - Related Data Allergies/Adverse Reactions: Allergies Allergy/AdvReac Type Severity Reaction Status Date / Time cephalexin [From Keflex] Allergy Itching Verified 06/30/18 03:25 Iodinated Contrast- Oral and Allergy Itching Verified 06/30/18 03:25 IV Dye [Iodinated Contrast Media - IV Dye] Penicillins Allergy Edema Verified 06/30/18 03:25 Home Medications: Home Meds Citalopram Hydrobromide [Celexa] 40 mg PO DAILY 12/26/15 [History] Folic Acid 1 tab PO DAILY@1200 12/26/15 [History] Garlic 1,000 mg PO BEDTIME 12/26/15 [History] Lisinopril 40 mg PO DAILY 12/26/15 [History] Lutein/Min/Vit C/Vit E Acetate [Ocuvite Lutein] 1 tab PO DAILY 12/26/15 [History ] [place]-3/DHA/Epa/Fish Oil [[place]-3 Fish Oil 1,000 MG Sfgl] 1 tab PO BID 12/26/15 [History] Simvastatin [Zocor] 40 mg PO BEDTIME 12/26/15 [History] Vitamin B Complex 1 tab PO DAILY@1200 12/26/15 [History] traZODone HCl [Trazodone HCl] 150 mg PO BEDTIME 12/26/15 [History] Calcium Carbonate/Vitamin D3 [Calcium 600 + Vit D Tablet] 2 tab PO BID@1200, 2100 09/16/17 [History] Diltiazem HCl [Diltiazem 24Hr ER] 120 mg PO DAILY 09/16/17 [History] Fluticasone Propionate [Flonase] 1 spray NASBOTH DAILY PRN 09/16/17 [History] LORazepam 0.5 mg PO TID PRN 09/16/17 [History] Omeprazole 20 mg PO ACBREAKFAST 09/16/17 [History] Docusate Sodium 1 tab PO ASDIRECTED PRN 11/05/17 [History] Levalbuterol Tartrate [Xopenex Hfa] 2 puff INH ASDIRECTED 11/05/17 [History] Past Medical History HEENT History: Reports: Hard of Hearing, Impaired Vision, Other (See Below) Other HEENT History: wears glasses, top denture, lower partial, ayan hearing aids Cardiovascular History: Reports: Arrhythmia, High Cholesterol, Hypertension. Denies: Afib, Blood Clots/VTE/DVT, NC Respiratory History: Reports: COPD Gastrointestinal History: Reports: Diverticulosis, GERD Other Gastrointestinal History: diverticulitis Genitourinary History: Reports: None [employer]ER INTER[employer] History: Reports: Musculoskeletal History: Reports: Arthritis, Other (See Below) Other Musculoskeletal History: (L) humerus fx Neurological History: Reports: Other (See Below) Other Neuro History: hx head injury Psychiatric History: Reports: Anxiety Endocrine/Metabolic History: Reports: Diabetes, Type II Other Endocrine/Metabolic History: diet controlled type II diabetes Hematologic History: Reports: None Immunologic History: Reports: None Oncologic (Cancer) History: Reports: None Dermatologic History: Reports: Other (See Below) Other Dermatologic History: rash to back - Past Surgical History Head Surgeries/Procedures: Reports: None Cardiovascular Surgical History: Reports: Cardiac Ablation GI Surgical History: Reports: Colonoscopy Other GI Surgeries/Procedures: hx rectal fistulectomy Female Surgical History: Reports: Hysterectomy, Other (See Below) Other Female Surgeries/Procedures: excision of chula anal fistula, axillary lumpectomy Social & Family History - Family History Family Medical History: Noncontributory - Tobacco Use Smoking Status *Q: Current Every Day Smoker Years of Tobacco use: 57 Packs/Tins Daily: 1.5 - Caffeine Use Caffeine Use: Reports: Coffee, Soda - Alcohol Use Alcohol Use History: Yes Days Per Week of Alcohol Use: 3 Number of Drinks Per Day: 5 Total Drinks Per Week: 15 - Recreational Drug Use Recreational Drug Use: No - Living Situation & Occupation Occupation: Retired H&P Review of Systems - Review of Systems: Review Of Systems: See Below General: Reports: No Symptoms. Denies: Fever, Chills, Malaise HEENT: Reports: No Symptoms. Denies: Headaches, Sore Throat Pulmonary: Reports: No Symptoms. Denies: Shortness of Breath, Cough, Sputum Cardiovascular: Reports: No Symptoms. Denies: Chest Pain, Lightheadedness Gastrointestinal: Reports: No Symptoms. Denies: Abdominal Pain, Black Stool, Bloody Stool, Decreased Appetite, Vomiting Genitourinary: Reports: No Symptoms. Denies: Dysuria, Frequency, Burning Musculoskeletal: Reports: No Symptoms Skin: Reports: No Symptoms Psychiatric: Reports: Anxiety. Denies: Confusion Neurological: Denies: Dizziness (intermittently at home when lying in bed. but none currently) Hematologic/Lymphatic: Reports: No Symptoms Immunologic: Reports: No Symptoms Exam - Exam Exam: See Below - Vital Signs Vital Signs: Last Vital Signs Temp 96.5 F 06/30/18 04:33 Pulse 50 L 06/30/18 02:30 Resp 18 06/30/18 04:33 BP 104/55 L 06/30/18 04:33 Pulse Ox 94 L 06/30/18 04:33 Weight: 62 kg - Exam General: Alert, Oriented, Cooperative HEENT: Conjunctiva Clear Neck: Supple Lungs: Clear to Auscultation, Normal Respiratory Effort Cardiovascular: Regular Rate, Regular Rhythm. No: Normal S1, Normal S2 GI/Abdominal Exam: Normal Bowel Sounds, Soft, Non-Tender Back Exam: Normal Inspection, Full Range of Motion Extremities: No Pedal Edema, Other (swelling and ecchymosis to L upper arm. Sling in place, CMS intact to hand, no peripheral tingling or numbness. Pulses intact) Neuro Extensive - Mental Status: Alert, Oriented x3, Normal Mood/Affect, Normal Cognition Neuro Extensive - Motor, Sensory, Reflexes: CN II-XII Intact Psychiatric: Alert, Normal Affect, Normal Mood - Patient Data Lab Results Last 24 hrs: Laboratory Results - last 24 hr 06/30/18 06/30/18 06/30/18 Range/Units 00:05 00:05 00:05 WBC 7.90 (4.0-11.0) K/uL RBC 4.88 (4.30-5.90) M/uL Hgb 15.7 (12.0-16.0) g/dL Hct 43.4 (36.0-46.0) % MCV 88.9 (80.0-98.0) fL MCH 32.2 H (27.0-32.0) pg MCHC 36.2 (31.0-37.0) g/dL RDW Std Deviation 37.9 (28.0-62.0) fl RDW Coeff of Miguelito 12 (11.0-15.0) % Plt Count 226 (150-400) K/uL MPV 10.20 (7.40-12.00) fL Neut % (Auto) 56.9 (48.0-80.0) % Lymph % (Auto) 33.5 (16.0-40.0) % Hughes % (Auto) 8.0 (0.0-15.0) % Eos % (Auto) 1.3 (0.0-7.0) % Baso % (Auto) 0.3 (0.0-1.5) % Neut # (Auto) 4.5 (1.4-5.7) K/uL Lymph # (Auto) 2.7 H (0.6-2.4) K/uL Hughes # (Auto) 0.6 (0.0-0.8) K/uL Eos # (Auto) 0.1 (0.0-0.7) K/uL Baso # (Auto) 0.0 (0.0-0.1) K/uL Nucleated RBC % 0.0 /100WBC Nucleated RBCs # 0 K/uL INR 1.03 Sodium 128 L (136-145) mmol/L Potassium 4.3 (3.5-5.1) mmol/L Chloride 94 L (98-107) mmol/L Carbon Dioxide 24.7 (21.0-32.0) mmol/L BUN 9 (7.0-18.0) mg/dL Creatinine 0.6 (0.6-1.0) mg/dL Est Cr Clr Drug Dosing 67.03 mL/min Estimated GFR (MDRD) > 60.0 ml/min Glucose 131 H (74-106) mg/dL Calcium 9.4 (8.5-10.1) mg/dL Total Bilirubin 0.4 (0.2-1.0) mg/dL AST 29 (15-37) IU/L ALT 29 (14-63) IU/L Alkaline Phosphatase 78 (46-116) U/L Total Protein 7.4 (6.4-8.2) g/dL Albumin 3.9 (3.4-5.0) g/dL Globulin 3.5 (2.6-4.0) g/dL Albumin/Globulin Ratio 1.1 (0.9-1.6) Ethyl Alcohol 166 mg/dL 06/30/18 06/30/18 Range/Units 05:35 05:35 WBC 9.85 (4.0-11.0) K/uL RBC 4.38 (4.30-5.90) M/uL Hgb 13.8 (12.0-16.0) g/dL Hct 38.4 (36.0-46.0) % MCV 87.7 (80.0-98.0) fL MCH 31.5 (27.0-32.0) pg MCHC 35.9 (31.0-37.0) g/dL RDW Std Deviation 37.2 (28.0-62.0) fl RDW Coeff of Miguelito 12 (11.0-15.0) % Plt Count 188 (150-400) K/uL MPV 10.00 (7.40-12.00) fL Neut % (Auto) 72.5 (48.0-80.0) % Lymph % (Auto) 19.5 (16.0-40.0) % Hughes % (Auto) 7.6 (0.0-15.0) % Eos % (Auto) 0.3 (0.0-7.0) % Baso % (Auto) 0.1 (0.0-1.5) % Neut # (Auto) 7.1 H (1.4-5.7) K/uL Lymph # (Auto) 1.9 (0.6-2.4) K/uL Hughes # (Auto) 0.8 (0.0-0.8) K/uL Eos # (Auto) 0.0 (0.0-0.7) K/uL Baso # (Auto) 0.0 (0.0-0.1) K/uL Nucleated RBC % 0.0 /100WBC Nucleated RBCs # 0 K/uL INR Sodium 132 L (136-145) mmol/L Potassium 4.1 (3.5-5.1) mmol/L Chloride 101 (98-107) mmol/L Carbon Dioxide 20.8 L (21.0-32.0) mmol/L BUN 7 (7.0-18.0) mg/dL Creatinine 0.6 (0.6-1.0) mg/dL Est Cr Clr Drug Dosing 67.03 mL/min Estimated GFR (MDRD) > 60.0 ml/min Glucose 118 H (74-106) mg/dL Calcium 8.5 (8.5-10.1) mg/dL Total Bilirubin (0.2-1.0) mg/dL AST (15-37) IU/L ALT (14-63) IU/L Alkaline Phosphatase (46-116) U/L Total Protein (6.4-8.2) g/dL Albumin (3.4-5.0) g/dL Globulin (2.6-4.0) g/dL Albumin/Globulin Ratio (0.9-1.6) Ethyl Alcohol mg/dL Result Diagrams: 06/30/18 05:35 06/30/18 05:35 EKG INTERPRETATION EKG Date: 06/30/18 Rhythm: NSR Rate (Beats/Min): 51 P-Wave: Present QRS: Normal ST-T: Normal QT: Normal - Problem List (1) Fall SNOMED Code(s): 7473053, 306352464 ICD Code: W19.XXXA - UNSPECIFIED FALL, INITIAL ENCOUNTER Status: Acute Current Visit: Yes Qualifiers: Encounter type: initial encounter Qualified Code(s): W19.XXXA - Unspecified fall, initial encounter (2) Fracture closed, humerus SNOMED Code(s): 82476551 ICD Code: S42.309A - UNSP FRACTURE OF SHAFT OF HUMERUS, UNSP ARM, INIT Status: Acute Current Visit: Yes Qualifiers: Encounter type: initial encounter Humerus Location: proximal Fracture morphology: unspecified fracture morphology Laterality: left Qualified Code( s): S42.202A - Unspecified fracture of upper end of left humerus, initial encounter for closed fracture (3) DM type 2 (diabetes mellitus, type 2) SNOMED Code(s): 89007408 ICD Code: E11.9 - TYPE 2 DIABETES MELLITUS WITHOUT COMPLICATIONS Status: Chronic Current Visit: No Qualifiers: Diabetes mellitus intermodal dispatcher insulin use: without intermodal dispatcher use Diabetes mellitus complication status: without complication Qualified Code(s): E11.9 - Type 2 diabetes mellitus without complications (4) Depression with anxiety SNOMED Code(s): 825174090 ICD Code: F41.8 - OTHER SPECIFIED ANXIETY DISORDERS Status: Chronic Current Visit: No (5) HTN (hypertension) SNOMED Code(s): 83411966 ICD Code: I10 - ESSENTIAL (PRIMARY) HYPERTENSION Status: Chronic Current Visit: No Qualifiers: Hypertension type: essential hypertension Qualified Code(s): I10 - Essential (primary) hypertension (6) Tobacco abuse SNOMED Code(s): 292470822 ICD Code: Z72.0 - TOBACCO USE Status: Chronic Current Visit: No (7) Alcohol use SNOMED Code(s): 029848 ICD Code: Z78.9 - OTHER SPECIFIED HEALTH STATUS Status: Chronic Current Visit: Yes Problem List Initiated/Reviewed/Updated: Yes Orders Last 24hrs: Active Orders 24 hr Category Date Time Status Patient Status [ADT] Stat ADT 06/30/18 01:17 Active Cardiac Monitoring [RC] . DIRECTED Care 06/29/18 23:43 Active Notify Provider Consults [RC] ASDIRECTED Care 06/30/18 01:18 Active Consult to Physician [CONS] Stat Cons 06/30/18 01:18 Active NPO [Nothing Per Oral Diet] [DIET] Diet 06/30/18 Breakfast Active UA RFX MARCIA AND CULT IF INDIC [URIN] Stat Lab 06/29/18 23:43 Ordered Folic Acid Med 06/30/18 09:00 Active 1 mg PO DAILY Morphine Med 06/30/18 02:37 Active 2 mg IVPUSH Q2H PRN Sodium Chloride 0.9% [Normal Saline] 1,000 ml Med 06/30/18 01:15 Active IV ASDIRECTED Sodium Chloride 0.9% [Saline Flush] Med 06/29/18 23:44 Active 10 ml FLUSH ASDIRECTED PRN Sodium Chloride 0.9% [Saline Flush] Med 06/29/18 23:44 Active 2.5 ml FLUSH ASDIRECTED PRN Thiamine [Vitamin B-1] Med 06/30/18 09:00 Active 100 mg PO Q24H DME for Discharge [COMM] Stat Oth 06/30/18 01:09 Ordered Saline Lock Insert [OM.PC] Stat Oth 06/29/18 23:43 Ordered Medication Orders Folic Acid (Folic Acid) 1 mg PO DAILY KATHY Sodium Chloride (Normal Saline) 1,000 mls @ 125 mls/hr IV ASDIRECTED KATHY Last Admin: 06/30/18 01:43 Dose: 125 mls/hr Morphine Sulfate (Morphine) 2 mg IVPUSH Q2H PRN PRN Reason: Pain Sodium Chloride (Saline Flush) 10 ml FLUSH ASDIRECTED PRN PRN Reason: Keep Vein Open Sodium Chloride (Saline Flush) 2.5 ml FLUSH ASDIRECTED PRN PRN Reason: Keep Vein Open Thiamine HCl (Vitamin B-1) 100 mg PO Q24H [facility] Assessment/Plan Comment:: This 72 year old female admitted with L humerus fracture post fall. 1. L humerus fracture: Dr Hill consulted, initially was trying conservative therapy with brace, but this is unable to keep arm alignment properly. She will go to OR tomorrow with Dr Hill. 2. HTN: Stable, continue Diltiazem and Lisinopril. 3. DM Type 2: diet controlled, monitor 4. Alcohol abuse: CIWAA assessment, Ativan PRN. Supplement thiamine and folic acid 5. Depression/Anxiety: Continue Celexa and Ativan PO PRN VTE prophylaxis: Hold pharmacologic today due to OR in am. SCDs Dispo: 2 days. Kendra is an acceptable surgical risk.
--- NOTE | 2018-06-30 08:31 | PCM.CONS ---
H&P History of Present Illness - General Date of Service: 06/30/18 Admit Problem/Dx: Admission Diagnosis/Problem Admission Diagnosis/Problem Fracture of humerus Source of Information: Patient, RN Notes Reviewed History Limitations: Reports: No Limitations - History of Present Illness Initial Comments - Free Text/Narative: 72 y/o LHD female who fell last evening, landing on her L UE. Complained of pain. Denies other injury or LOC. Was evaluated in ER. XR show left proximal humerus fracture. CT of head negative. Admitted for pain management. Pain fairly well controlled last night. Denies distal paralysis/paresthesias. Patient with multiple medical comorbidities. +ETOH intoxication last evening. Denies previous h/o injury to left shoulder but has had shoulder pain in the past. Location: Reports: Upper Extremity, Left Quality: Reports: Ache, Sharp Improves with: Reports: Immobilization, Rest Worsens with: Reports: Movement Context: Reports: Trauma Associated Symptoms: Reports: No Other Symptoms Left Shoulder Pain Score (Numeric/FACES): 6 - Related Data Allergies/Adverse Reactions: Allergies Allergy/AdvReac Type Severity Reaction Status Date / Time cephalexin [From Keflex] Allergy Itching Verified 06/30/18 03:25 Iodinated Contrast- Oral and Allergy Itching Verified 06/30/18 03:25 IV Dye [Iodinated Contrast Media - IV Dye] Penicillins Allergy Edema Verified 06/30/18 03:25 Home Medications: Home Meds Citalopram Hydrobromide [Celexa] 40 mg PO DAILY 12/26/15 [History] Folic Acid 1 tab PO DAILY@1200 12/26/15 [History] Garlic 1,000 mg PO BEDTIME 12/26/15 [History] Lisinopril 40 mg PO DAILY 12/26/15 [History] Lutein/Min/Vit C/Vit E Acetate [Ocuvite Lutein] 1 tab PO DAILY 12/26/15 [History ] [place]-3/DHA/Epa/Fish Oil [[place]-3 Fish Oil 1,000 MG Sfgl] 1 tab PO BID 12/26/15 [History] Simvastatin [Zocor] 40 mg PO BEDTIME 12/26/15 [History] Vitamin B Complex 1 tab PO DAILY@1200 12/26/15 [History] traZODone HCl [Trazodone HCl] 150 mg PO BEDTIME 12/26/15 [History] Calcium Carbonate/Vitamin D3 [Calcium 600 + Vit D Tablet] 2 tab PO BID@1200, 2100 09/16/17 [History] Diltiazem HCl [Diltiazem 24Hr ER] 120 mg PO DAILY 09/16/17 [History] Fluticasone Propionate [Flonase] 1 spray NASBOTH DAILY PRN 09/16/17 [History] LORazepam 0.5 mg PO TID PRN 09/16/17 [History] Omeprazole 20 mg PO ACBREAKFAST 09/16/17 [History] Docusate Sodium 1 tab PO ASDIRECTED PRN 11/05/17 [History] Levalbuterol Tartrate [Xopenex Hfa] 2 puff INH ASDIRECTED 11/05/17 [History] Past Medical History HEENT History: Reports: Hard of Hearing, Impaired Vision, Other (See Below) Other HEENT History: wears glasses, top denture, lower partial, ayan hearing aids Cardiovascular History: Reports: Arrhythmia, Hypertension Respiratory History: Reports: COPD Gastrointestinal History: Reports: Diverticulosis, GERD Other Gastrointestinal History: diverticulitis Genitourinary History: Reports: None [employer] History: Reports: Musculoskeletal History: Reports: Arthritis, Other (See Below) Other Musculoskeletal History: (L) humerus fx Neurological History: Reports: Other (See Below) Other Neuro History: hx head injury Psychiatric History: Reports: Anxiety Endocrine/Metabolic History: Reports: Diabetes, Type II Other Endocrine/Metabolic History: diet controlled type II diabetes Hematologic History: Reports: None Immunologic History: Reports: None Oncologic (Cancer) History: Reports: None Dermatologic History: Reports: Other (See Below) Other Dermatologic History: rash to back - Past Surgical History Head Surgeries/Procedures: Reports: None Cardiovascular Surgical History: Reports: Cardiac Ablation GI Surgical History: Reports: Colonoscopy Other GI Surgeries/Procedures: hx rectal fistulectomy Female Surgical History: Reports: Hysterectomy, Other (See Below) Other Female Surgeries/Procedures: excision of chula anal fistula, axillary lumpectomy Social & Family History - Family History Family Medical History: Noncontributory - Tobacco Use Smoking Status *Q: Current Every Day Smoker Years of Tobacco use: 57 Packs/Tins Daily: 1.5 - Caffeine Use Caffeine Use: Reports: Coffee, Soda - Recreational Drug Use Recreational Drug Use: No - Living Situation & Occupation Living situation: Reports: with Family (lives with sister) Occupation: Retired H&P Review of Systems - Review of Systems: Review Of Systems: See Below Pulmonary: Reports: No Symptoms Cardiovascular: Reports: No Symptoms Gastrointestinal: Reports: No Symptoms Genitourinary: Reports: No Symptoms Musculoskeletal: Reports: Shoulder Pain Skin: Reports: No Symptoms Psychiatric: Reports: No Symptoms Neurological: Reports: No Symptoms Hematologic/Lymphatic: Reports: No Symptoms Immunologic: Reports: No Symptoms Exam - Exam Exam: See Below - Vital Signs Vital Signs: Last Vital Signs Temp 96.5 F 06/30/18 04:33 Pulse 50 L 06/30/18 02:30 Resp 18 06/30/18 04:33 BP 104/55 L 06/30/18 04:33 Pulse Ox 94 L 06/30/18 04:33 Weight: 62 kg - Exam General: Alert, Oriented, 4 HEENT: Conjunctiva Clear, Hearing Intact, Nares Patent Neck: Supple, Trachea Midline, 2 Lungs: Normal Respiratory Effort Cardiovascular: Regular Rate GI/Abdominal Exam: Soft Neuro Extensive - Mental Status: Alert, Oriented x3, Normal Mood/Affect, Normal Cognition Psychiatric: Alert, Normal Affect, Normal Mood Physical Exam Comments:: No TTP of cervical spine. No areas of tenderness or abnormality in RUE or lower extremities. Exam of LUE shows swelling and ecchymosis in left shoulder region. Skin intact. Diffuse TTP around shoulder and elbow. No wrist pain. ROM deferred due to XR finding. AIN/PIN/uln motor intact. Rad/uln/med sensation intact. Rad pulse 2+. - Patient Data Lab Results Last 24 hrs: Laboratory Results - last 24 hr 06/30/18 06/30/18 06/30/18 Range/Units 00:05 00:05 00:05 WBC 7.90 (4.0-11.0) K/uL RBC 4.88 (4.30-5.90) M/uL Hgb 15.7 (12.0-16.0) g/dL Hct 43.4 (36.0-46.0) % MCV 88.9 (80.0-98.0) fL MCH 32.2 H (27.0-32.0) pg MCHC 36.2 (31.0-37.0) g/dL RDW Std Deviation 37.9 (28.0-62.0) fl RDW Coeff of Miguelito 12 (11.0-15.0) % Plt Count 226 (150-400) K/uL MPV 10.20 (7.40-12.00) fL Neut % (Auto) 56.9 (48.0-80.0) % Lymph % (Auto) 33.5 (16.0-40.0) % [place] % (Auto) 8.0 (0.0-15.0) % Eos % (Auto) 1.3 (0.0-7.0) % Baso % (Auto) 0.3 (0.0-1.5) % Neut # (Auto) 4.5 (1.4-5.7) K/uL Lymph # (Auto) 2.7 H (0.6-2.4) K/uL [place] # (Auto) 0.6 (0.0-0.8) K/uL Eos # (Auto) 0.1 (0.0-0.7) K/uL Baso # (Auto) 0.0 (0.0-0.1) K/uL Nucleated RBC % 0.0 /100WBC Nucleated RBCs # 0 K/uL INR 1.03 Sodium 128 L (136-145) mmol/L Potassium 4.3 (3.5-5.1) mmol/L Chloride 94 L (98-107) mmol/L Carbon Dioxide 24.7 (21.0-32.0) mmol/L BUN 9 (7.0-18.0) mg/dL Creatinine 0.6 (0.6-1.0) mg/dL Est Cr Clr Drug Dosing 67.03 mL/min Estimated GFR (MDRD) > 60.0 ml/min Glucose 131 H (74-106) mg/dL Calcium 9.4 (8.5-10.1) mg/dL Total Bilirubin 0.4 (0.2-1.0) mg/dL AST 29 (15-37) IU/L ALT 29 (14-63) IU/L Alkaline Phosphatase 78 (46-116) U/L Total Protein 7.4 (6.4-8.2) g/dL Albumin 3.9 (3.4-5.0) g/dL Globulin 3.5 (2.6-4.0) g/dL Albumin/Globulin Ratio 1.1 (0.9-1.6) Ethyl Alcohol 166 mg/dL 06/30/18 06/30/18 Range/Units 05:35 05:35 WBC 9.85 (4.0-11.0) K/uL RBC 4.38 (4.30-5.90) M/uL Hgb 13.8 (12.0-16.0) g/dL Hct 38.4 (36.0-46.0) % MCV 87.7 (80.0-98.0) fL MCH 31.5 (27.0-32.0) pg MCHC 35.9 (31.0-37.0) g/dL RDW Std Deviation 37.2 (28.0-62.0) fl RDW Coeff of Miguelito 12 (11.0-15.0) % Plt Count 188 (150-400) K/uL MPV 10.00 (7.40-12.00) fL Neut % (Auto) 72.5 (48.0-80.0) % Lymph % (Auto) 19.5 (16.0-40.0) % [place] % (Auto) 7.6 (0.0-15.0) % Eos % (Auto) 0.3 (0.0-7.0) % Baso % (Auto) 0.1 (0.0-1.5) % Neut # (Auto) 7.1 H (1.4-5.7) K/uL Lymph # (Auto) 1.9 (0.6-2.4) K/uL [place] # (Auto) 0.8 (0.0-0.8) K/uL Eos # (Auto) 0.0 (0.0-0.7) K/uL Baso # (Auto) 0.0 (0.0-0.1) K/uL Nucleated RBC % 0.0 /100WBC Nucleated RBCs # 0 K/uL INR Sodium 132 L (136-145) mmol/L Potassium 4.1 (3.5-5.1) mmol/L Chloride 101 (98-107) mmol/L Carbon Dioxide 20.8 L (21.0-32.0) mmol/L BUN 7 (7.0-18.0) mg/dL Creatinine 0.6 (0.6-1.0) mg/dL Est Cr Clr Drug Dosing 67.03 mL/min Estimated GFR (MDRD) > 60.0 ml/min Glucose 118 H (74-106) mg/dL Calcium 8.5 (8.5-10.1) mg/dL Total Bilirubin (0.2-1.0) mg/dL AST (15-37) IU/L ALT (14-63) IU/L Alkaline Phosphatase (46-116) U/L Total Protein (6.4-8.2) g/dL Albumin (3.4-5.0) g/dL Globulin (2.6-4.0) g/dL Albumin/Globulin Ratio (0.9-1.6) Ethyl Alcohol mg/dL Result Diagrams: 06/30/18 05:35 06/30/18 05:35 Imaging Impressions Last 24 hrs: XR of left humerus shows displaced proximal humerus fracture. Does not appear to extend intra-articularly. Consult PN Assessment/Plan Procedures: Procedures AGENT NOS ASSAY W/OPTIC (09/16/17) BLOOD CULTURE FOR BACTERIA (09/16/17) CLOSTRIDIUM AG IA (09/16/17) COMPLETE CBC W/AUTO DIFF WBC (09/16/17) COMPREHEN METABOLIC PANEL (09/16/17) CT ABD & PELVIS W/O CONTRAST (09/16/17) DIAGNOSTIC COLONOSCOPY (11/10/17) ELECTROCARDIOGRAM TRACING (12/20/15) EMERGENCY DEPT VISIT (09/16/17) EXC FACE-MM B9+KENNEDI 0.6-1 CM (08/22/15) GLUCOSE BLOOD TEST (09/16/17) HEMATOCRIT (09/16/17) HEMOGLOBIN (09/16/17) HOT OR COLD PACKS THERAPY (08/14/17) HYDRATE IV INFUSION ADD-ON (09/16/17) MANUAL THERAPY 1/> REGIONS (09/15/17) METABOLIC PANEL TOTAL CA (09/16/17) MRI NECK SPINE W/O DYE (08/12/17) OFFICE/OUTPATIENT VISIT NEW (12/20/15) OFFICE/OUTPATIENT VISIT NEW (08/22/15) PROTHROMBIN TIME (09/16/17) PT EVAL LOW COMPLEX 20 MIN (08/14/17) ROUTINE VENIPUNCTURE (09/16/17) STOOL CULTR AEROBIC BACT EA (09/16/17) THER/PROPH/DIAG IV INF INIT (09/16/17) THERAPEUTIC EXERCISES (09/15/17) TISSUE EXAM BY PATHOLOGIST (08/22/15) ULTRASOUND THERAPY (09/15/17) URINALYSIS AUTO W/SCOPE (09/16/17) URINE CULTURE/COLONY COUNT (05/11/15) (1) Fracture closed, humerus SNOMED Code(s): 39658983 Code(s): S42.309A - UNSP FRACTURE OF SHAFT OF HUMERUS, UNSP ARM, INIT Current Visit: Yes Qualifiers: Encounter type: initial encounter Humerus Location: proximal Fracture morphology: unspecified fracture morphology Laterality: left Qualified Code( s): S42.202A - Unspecified fracture of upper end of left humerus, initial encounter for closed fracture Problem List Initiated/Reviewed/Updated: Yes Plan: 1. discussed surgical/conservative treatment options. The location of the fracture makes conservative treatment less successful, however with her multiple medical comorbidities I would like to try this first. Recommend placement of humeral fracture brace today. Will obtain new XR of humerus and shoulder in brace and see if position improves. Also recommend letting the left arm hang as much as possible, ok to use sling for comfort. 2. pain management 3. PT to assist with ambulation and getting in/out of bed. CHRIS SUTTON 4. Will continue to follow--no surgical treatment today
[2018-06-30] MEDS ORDERED: Citalopram 20 MG Tab PO ONE (09:00)
[2018-06-30] MEDS ORDERED: Docusate Sodium 100 MG Cap PO PRN (09:07)
[2018-06-30] MEDS ORDERED: Fluticasone Propionate Nasal Spray 16 GM Bottle NASBOTH PRN (09:07)
[2018-06-30] MEDS ORDERED: LORazepam 0.5 MG Tab PO PRN (09:07)
[2018-06-30] MEDS: Acetaminophen/HYDROcodone 325-5 MG Tab PO PRN ×2 (09:38→15:35)
[2018-06-30] MEDS: Thiamine 100 MG Tab PO SCH (10:28)
[2018-06-30] MEDS: Folic Acid 1 MG Tab PO SCH (10:28)
[2018-06-30] MEDS: Citalopram 20 MG Tab PO SCH (10:28)
[2018-06-30] MEDS: Insulin Aspart 100 Units/ML 3 ML Pen SUBCUT SCH ×2 (12:08→17:13)
[2018-06-30] MEDS: Diltiazem 120 MG Cap.CD PO SCH (12:09)
[2018-06-30] MEDS: Nicotine 14 MG/24 Hr Patch TRDERM SCH (12:09)
[2018-06-30] MEDS: Lisinopril 10 MG Tab PO SCH (12:10)
[2018-06-30] MEDS: Calcium Carbonate/Vitamin D3 1500 MG-400 Units Tab PO SCH ×2 (12:15→20:40)
--- NOTE | 2018-06-30 15:18 | CR ---
EXAMINATION: Left shoulder HISTORY: Fracture COMPARISON: 06/30/2018 TECHNIQUE: 3 views FINDINGS/IMPRESSION: There is an oblique mildly displaced proximal left humeral diaphysis fracture. Otherwise osseous structures appear osteopenic. Glenohumeral and acromioclavicular joints appear preserved.
--- NOTE | 2018-06-30 16:51 | CR ---
EXAMINATION: Left humerus HISTORY: Fracture COMPARISON: None TECHNIQUE: 2 views FINDINGS/IMPRESSION: There is a oblique mildly comminuted and displaced proximal left humeral metadiaphysis fracture identified. Bone mineralization is otherwise mildly osteopenic.
--- NOTE | 2018-06-30 18:00 | PCM.SN ---
- Free Text/Narrative Note: Xrays in fracture brace reviewed. Fracture remains displaced and angulated. Discussed with patient. Due to position, I am recommending CR left humerus with insertion of IM nail. Procedure and postoperative course reviewed. Risks of procedure include, but are not limited to, infection, n/v injury, nonunion, malunion, HW irritation, shoulder/elbow stiffness, DVT, and anesthetic complications. Patient seems to accept risks and wishes to proceed. will plan to do [place]. continue current care and pain management.
[2018-06-30] MEDS ORDERED: Clindamycin Phosphate in D5W 600 MG in Premix Bag 1 BAG IV ONE ×2 (18:15)
[2018-06-30] MEDS ORDERED: XOPENEX HFA INH PRN (19:00)
[2018-06-30] MEDS: Simvastatin 40 MG Tab PO SCH (20:40)
[2018-06-30] MEDS: traZODone 50 MG Tab PO SCH (20:41)
[2018-07-01] MEDS: Acetaminophen/HYDROcodone 325-5 MG Tab PO PRN ×3 (00:36→19:09)
[2018-07-01] MEDS: Sodium Chloride 0.9% 1,000 ML IV SCH (00:38)
[2018-07-01 05:42] LABS: CHLORIDE,CL 103 mmol/L (98-107); SODIUM,NA 138 mmol/L (136-145)
[2018-07-01] MEDS: Insulin Aspart 100 Units/ML 3 ML Pen SUBCUT SCH ×3 (06:56→17:44)
--- NOTE | 2018-07-01 08:08 | PCM.PN ---
- General Info Date of Service: 07/01/18 Admission Dx/Problem (Free Text): Admission Diagnosis/Problem Admission Diagnosis/Problem Fracture of humerus Subjective Update: Doing well this morning, no chest pain or dyspnea. Pain to L arm and having achiness all over from bed and positioning. No other complaints. Functional Status: Reports: Pain Controlled, Ambulating, Urinating - Review of Systems General: Reports: No Symptoms. Denies: Fever, Weakness, Fatigue HEENT: Reports: No Symptoms. Denies: Headaches, Sore Throat Pulmonary: Denies: Shortness of Breath, Cough Cardiovascular: Denies: Chest Pain, Edema Gastrointestinal: Reports: No Symptoms. Denies: Abdominal Pain, Nausea, Vomiting Genitourinary: Reports: No Symptoms. Denies: Dysuria, Frequency, Burning Musculoskeletal: Reports: Arm Pain (L arm, brace in place) Skin: Reports: No Symptoms Neurological: Reports: No Symptoms Psychiatric: Reports: No Symptoms - Patient Data Vitals - Most Recent: Last Vital Signs Temp 97.3 F 07/01/18 05:09 Pulse 51 L 07/01/18 05:09 Resp 14 07/01/18 05:09 BP 126/60 07/01/18 05:09 Pulse Ox 88 L 07/01/18 05:09 Weight - Most Recent: 62 kg I&O - Last 24 Hours: Intake & Output 06/30/18 07/01/18 07/01/18 22:59 06:59 14:59 Intake Total 770 600 Output Total 1100 1000 Balance -330 -400 Lab Results Last 24 Hours: Laboratory Results - last 24 hr 06/30/18 06/30/18 06/30/18 Range/Units 10:18 11:30 17:02 WBC (4.0-11.0) K/uL RBC (4.30-5.90) M/uL Hgb (12.0-16.0) g/dL Hct (36.0-46.0) % MCV (80.0-98.0) fL MCH (27.0-32.0) pg MCHC (31.0-37.0) g/dL RDW Std Deviation (28.0-62.0) fl RDW Coeff of Miguelito (11.0-15.0) % Plt Count (150-400) K/uL MPV (7.40-12.00) fL Neut % (Auto) (48.0-80.0) % Lymph % (Auto) (16.0-40.0) % [place] % (Auto) (0.0-15.0) % Eos % (Auto) (0.0-7.0) % Baso % (Auto) (0.0-1.5) % Neut # (Auto) (1.4-5.7) K/uL Lymph # (Auto) (0.6-2.4) K/uL [place] # (Auto) (0.0-0.8) K/uL Eos # (Auto) (0.0-0.7) K/uL Baso # (Auto) (0.0-0.1) K/uL Nucleated RBC % /100WBC Nucleated RBCs # K/uL Sodium (136-145) mmol/L Potassium (3.5-5.1) mmol/L Chloride (98-107) mmol/L Carbon Dioxide (21.0-32.0) mmol/L BUN (7.0-18.0) mg/dL Creatinine (0.6-1.0) mg/dL Est Cr Clr Drug Dosing mL/min Estimated GFR (MDRD) ml/min Glucose (74-106) mg/dL POC Glucose 144 H 85 (60-110) mg/dL Calcium (8.5-10.1) mg/dL Urine Color YELLOW Urine Appearance CLEAR Urine pH 5.5 (5.0-8.0) Ur Specific [place] <= 1.005 (1.001-1.035) Urine Protein NEGATIVE (NEGATIVE) mg/dL Urine Glucose (UA) NEGATIVE (NEGATIVE) mg/dL Urine Ketones NEGATIVE (NEGATIVE) mg/dL Urine Occult Blood NEGATIVE (NEGATIVE) Urine Nitrite NEGATIVE (NEGATIVE) Urine Bilirubin NEGATIVE (NEGATIVE) Urine Urobilinogen 0.2 (<2.0) EU/dL Ur Leukocyte Esterase NEGATIVE (NEGATIVE) 06/30/18 07/01/18 07/01/18 Range/Units 20:55 04:55 04:55 WBC 5.54 (4.0-11.0) K/uL RBC 4.12 L (4.30-5.90) M/uL Hgb 12.9 (12.0-16.0) g/dL Hct 37.4 (36.0-46.0) % MCV 90.8 (80.0-98.0) fL MCH 31.3 (27.0-32.0) pg MCHC 34.5 (31.0-37.0) g/dL RDW Std Deviation 39.4 (28.0-62.0) fl RDW Coeff of Miguelito 12 (11.0-15.0) % Plt Count 178 (150-400) K/uL MPV 10.30 (7.40-12.00) fL Neut % (Auto) 48.7 (48.0-80.0) % Lymph % (Auto) 39.5 (16.0-40.0) % [place] % (Auto) 10.3 (0.0-15.0) % Eos % (Auto) 1.3 (0.0-7.0) % Baso % (Auto) 0.2 (0.0-1.5) % Neut # (Auto) 2.7 (1.4-5.7) K/uL Lymph # (Auto) 2.2 (0.6-2.4) K/uL [place] # (Auto) 0.6 (0.0-0.8) K/uL Eos # (Auto) 0.1 (0.0-0.7) K/uL Baso # (Auto) 0.0 (0.0-0.1) K/uL Nucleated RBC % 0.0 /100WBC Nucleated RBCs # 0 K/uL Sodium 138 (136-145) mmol/L Potassium 4.5 (3.5-5.1) mmol/L Chloride 103 (98-107) mmol/L Carbon Dioxide 28.0 (21.0-32.0) mmol/L BUN 7 (7.0-18.0) mg/dL Creatinine 0.7 (0.6-1.0) mg/dL Est Cr Clr Drug Dosing 57.46 mL/min Estimated GFR (MDRD) > 60.0 ml/min Glucose 95 (74-106) mg/dL POC Glucose 150 H (60-110) mg/dL Calcium 9.3 (8.5-10.1) mg/dL Urine Color Urine Appearance Urine pH (5.0-8.0) Ur Specific [place] (1.001-1.035) Urine Protein (NEGATIVE) mg/dL Urine Glucose (UA) (NEGATIVE) mg/dL Urine Ketones (NEGATIVE) mg/dL Urine Occult Blood (NEGATIVE) Urine Nitrite (NEGATIVE) Urine Bilirubin (NEGATIVE) Urine Urobilinogen (<2.0) EU/dL Ur Leukocyte Esterase (NEGATIVE) 07/01/18 Range/Units 06:34 WBC (4.0-11.0) K/uL RBC (4.30-5.90) M/uL Hgb (12.0-16.0) g/dL Hct (36.0-46.0) % MCV (80.0-98.0) fL MCH (27.0-32.0) pg MCHC (31.0-37.0) g/dL RDW Std Deviation (28.0-62.0) fl RDW Coeff of Miguelito (11.0-15.0) % Plt Count (150-400) K/uL MPV (7.40-12.00) fL Neut % (Auto) (48.0-80.0) % Lymph % (Auto) (16.0-40.0) % [place] % (Auto) (0.0-15.0) % Eos % (Auto) (0.0-7.0) % Baso % (Auto) (0.0-1.5) % Neut # (Auto) (1.4-5.7) K/uL Lymph # (Auto) (0.6-2.4) K/uL [place] # (Auto) (0.0-0.8) K/uL Eos # (Auto) (0.0-0.7) K/uL Baso # (Auto) (0.0-0.1) K/uL Nucleated RBC % /100WBC Nucleated RBCs # K/uL Sodium (136-145) mmol/L Potassium (3.5-5.1) mmol/L Chloride (98-107) mmol/L Carbon Dioxide (21.0-32.0) mmol/L BUN (7.0-18.0) mg/dL Creatinine (0.6-1.0) mg/dL Est Cr Clr Drug Dosing mL/min Estimated GFR (MDRD) ml/min Glucose (74-106) mg/dL POC Glucose 90 (60-110) mg/dL Calcium (8.5-10.1) mg/dL Urine Color Urine Appearance Urine pH (5.0-8.0) Ur Specific [place] (1.001-1.035) Urine Protein (NEGATIVE) mg/dL Urine Glucose (UA) (NEGATIVE) mg/dL Urine Ketones (NEGATIVE) mg/dL Urine Occult Blood (NEGATIVE) Urine Nitrite (NEGATIVE) Urine Bilirubin (NEGATIVE) Urine Urobilinogen (<2.0) EU/dL Ur Leukocyte Esterase (NEGATIVE) Med Orders - Current: Current Medications Hydrocodone Bitart/Acetaminophen ([place] 325-5 Mg) 1 - 2 tab PO Q4H PRN PRN Reason: Pain Last Admin: 07/01/18 00:36 Dose: 2 tab Calcium Carbonate (Caltrate 600+D 1500 Mg-400 Units) 1 tab PO BID@1200,2100 [facility] Last Admin: 06/30/18 20:40 Dose: 1 tab Citalopram Hydrobromide (Celexa) 40 mg PO DAILY [facility] Last Admin: 06/30/18 10:28 Dose: 40 mg Diltiazem HCl (Cardizem Cd) 120 mg PO DAILY [facility] Last Admin: 06/30/18 12:09 Dose: 120 mg Docusate Sodium (Colace) 100 mg PO ASDIRECTED PRN PRN Reason: Constipation Fluticasone Propionate (Flonase) 16 gm NASBOTH DAILY PRN PRN Reason: Allergies Folic Acid (Folic Acid) 1 mg PO DAILY [facility] Last Admin: 06/30/18 10:28 Dose: 1 mg Sodium Chloride (Normal Saline) 1,000 mls @ 50 mls/hr IV ASDIRECTED [facility] Last Admin: 07/01/18 00:38 Dose: 50 mls/hr Insulin Aspart (Novolog) 0 unit SUBCUT TIDAC [facility]; Protocol Last Admin: 07/01/18 06:56 Dose: Not Given Lisinopril (Prinivil) 40 mg PO DAILY [facility] Last Admin: 06/30/18 12:10 Dose: 40 mg Lorazepam (Ativan) 0.5 mg PO TID PRN PRN Reason: Anxiety Morphine Sulfate (Morphine) 2 mg IVPUSH Q2H PRN PRN Reason: Pain Nicotine (Habitrol) 14 mg TRDERM Q24H [facility] Last Admin: 06/30/18 12:09 Dose: 14 mg Omeprazole (Omeprazole) 20 mg PO ACBREAKFAST [facility] Xopenex Hfa 2 each INH Q4H PRN PRN Reason: SHORTNESS OF BREATH Simvastatin (Zocor) 40 mg PO BEDTIME [facility] Last Admin: 06/30/18 20:40 Dose: 40 mg Sodium Chloride (Saline Flush) 10 ml FLUSH ASDIRECTED PRN PRN Reason: Keep Vein Open Sodium Chloride (Saline Flush) 2.5 ml FLUSH ASDIRECTED PRN PRN Reason: Keep Vein Open Thiamine HCl (Vitamin B-1) 100 mg PO Q24H [facility] Last Admin: 06/30/18 10:28 Dose: 100 mg Trazodone HCl (Trazodone) 150 mg PO BEDTIME [facility] Last Admin: 06/30/18 20:41 Dose: 150 mg Discontinued Medications Diltiazem HCl (Cardizem Cd) 120 mg PO DAILY [facility] Sodium Chloride (Normal Saline) 1,000 mls @ 999 mls/hr IV STAT ONE Stop: 06/30/18 00:44 Last Admin: 06/30/18 00:07 Dose: 999 mls/hr Sodium Chloride (Normal Saline) 1,000 mls @ 125 mls/hr IV ASDIRECTED [facility] Last Admin: 06/30/18 10:12 Dose: 125 mls/hr Clindamycin Phosphate 600 mg/ (Premix) 50 mls @ 92.593 mls/hr IV ONETIME ONE Stop: 06/30/18 18:47 Last Admin: 06/30/18 18:49 Dose: 92.593 mls/hr Ketorolac Tromethamine (Toradol) 30 mg IVPUSH ONETIME ONE Stop: 06/29/18 23:45 Last Admin: 06/30/18 00:07 Dose: 30 mg Lisinopril (Prinivil) 40 mg PO DAILY [facility] Morphine Sulfate (Morphine) 2 mg IVPUSH ONETIME ONE Stop: 06/30/18 01:10 Last Admin: 06/30/18 01:13 Dose: 2 mg Ondansetron HCl (Zofran) 4 mg IVPUSH ONETIME ONE Stop: 06/29/18 23:45 Last Admin: 06/30/18 00:06 Dose: 4 mg - Exam General: Alert, Oriented, Cooperative, No Acute Distress Lungs: Clear to Auscultation, Normal Respiratory Effort Cardiovascular: Regular Rate, Regular Rhythm GI/Abdominal Exam: Normal Bowel Sounds, Soft, Non-Tender, No Organomegaly Extremities: Normal Inspection, Non-Tender, Other (CMS intact to L arm, pulses intact. No numbness or tingling). No: Normal Range of Motion (L arm in brace.) Neurological: No New Focal Deficit Psy/Mental Status: Alert, Normal Affect, Normal Mood - Problem List & Annotations (1) Fall SNOMED Code(s): 6976311, 806794213 Code(s): W19.XXXA - UNSPECIFIED FALL, INITIAL ENCOUNTER Status: Acute Current Visit: Yes Qualifiers: Encounter type: initial encounter Qualified Code(s): W19.XXXA - Unspecified fall, initial encounter (2) Fracture closed, humerus SNOMED Code(s): 43460041 Code(s): S42.309A - UNSP FRACTURE OF SHAFT OF HUMERUS, UNSP ARM, INIT Status: Acute Current Visit: Yes Qualifiers: Encounter type: initial encounter Humerus Location: proximal Fracture morphology: unspecified fracture morphology Laterality: left Qualified Code( s): S42.202A - Unspecified fracture of upper end of left humerus, initial encounter for closed fracture (3) DM type 2 (diabetes mellitus, type 2) SNOMED Code(s): 26652291 Code(s): E11.9 - TYPE 2 DIABETES MELLITUS WITHOUT COMPLICATIONS Status: Chronic Current Visit: No Qualifiers: Diabetes mellitus flight dispatcher insulin use: without flight dispatcher use Diabetes mellitus complication status: without complication Qualified Code(s): E11.9 - Type 2 diabetes mellitus without complications (4) Depression with anxiety SNOMED Code(s): 086358269 Code(s): F41.8 - OTHER SPECIFIED ANXIETY DISORDERS Status: Chronic Current Visit: No (5) HTN (hypertension) SNOMED Code(s): 48272996 Code(s): I10 - ESSENTIAL (PRIMARY) HYPERTENSION Status: Chronic Current Visit: No Qualifiers: Hypertension type: essential hypertension Qualified Code(s): I10 - Essential (primary) hypertension (6) Tobacco abuse SNOMED Code(s): 184566847 Code(s): Z72.0 - TOBACCO USE Status: Chronic Current Visit: No (7) Alcohol use SNOMED Code(s): 452020 Code(s): Z78.9 - OTHER SPECIFIED HEALTH STATUS Status: Chronic Current Visit: Yes - Problem List Review Problem List Initiated/Reviewed/Updated: Yes - My Orders Last 24 Hours: My Active Orders 06/30/18 09:07 Docusate Sodium [Colace] 100 mg PO ASDIRECTED PRN Fluticasone Propionate [Flonase] 16 gm NASBOTH DAILY PRN LORazepam [Ativan] 0.5 mg PO TID PRN 06/30/18 09:10 Blood Glucose Check, Bedside [RC] TIDAC 06/30/18 09:15 Citalopram [Celexa] 40 mg PO DAILY 06/30/18 11:27 Diltiazem [Cardizem CD] 120 mg PO DAILY 06/30/18 11:28 Lisinopril [Prinivil] 40 mg PO DAILY 06/30/18 11:30 Insulin Aspart [NovoLOG] See Protocol SUBCUT TIDAC Nicotine [Habitrol] 14 mg TRDERM Q24H 06/30/18 11:50 EKG 12 Lead [EKG Documentation Completion] [RC] ROUTINE 06/30/18 12:00 Calcium Carbonate/Vitamin D3 [Caltrate 600+D 1500 MG-400 Units] 1 tab PO BID@ 1200,2100 06/30/18 21:00 Simvastatin [Zocor] 40 mg PO BEDTIME traZODone 150 mg PO BEDTIME 06/30/18 23:59 Sodium Chloride 0.9% [Normal Saline] 1,000 ml IV ASDIRECTED 07/01/18 07:30 Omeprazole 20 mg PO ACBREAKFAST 07/01/18 Breakfast NPO After Midnight [Nothing per Oral After Midnight Diet] [DIET] - Plan Plan:: This 72 year old female admitted with L humerus fracture post fall. 1. L humerus fracture: Dr Hill consulted, OR today. 2. HTN: Stable, continue Diltiazem and Lisinopril. 3. DM Type 2: Stable. diet controlled, monitor 4. Alcohol abuse: CIWAA assessment, Ativan PRN. Supplement thiamine and folic acid 5. Depression/Anxiety: Continue Celexa and Ativan PO PRN VTE prophylaxis: Hold pharmacologic today due to OR SCDs Dispo: 2 days.
[2018-07-01] MEDS: Omeprazole 20 MG Cap.CR PO SCH (08:22)
[2018-07-01] MEDS ORDERED: Citalopram 20 MG Tab PO ONE (09:00)
[2018-07-01] MEDS ORDERED: Diltiazem 120 MG Cap.CD PO SCH (09:00)
[2018-07-01] MEDS ORDERED: Lisinopril 10 MG Tab PO SCH (09:00)
--- NOTE | 2018-07-01 10:50 | PCM.PREANE ---
Preanesthetic Assessment - Anesthesia/Transfusion/Family Hx Anesthesia History: Prior Anesthesia Reaction Other Type of Anesthesia Reaction Comment: tachyarrythmia during anesthesia, since then has had cardiac ablation Family History of Anesthesia Reaction: No Transfusion History: No Prior Transfusion(s) - Review of Systems General: No Symptoms Pulmonary: No Symptoms Cardiovascular: No Symptoms Gastrointestinal: No Symptoms Neurological: No Symptoms Other: Reports: None - Physical Assessment NPO Status Date: 06/30/18 (cl with meds this am) Pulse: 54 O2 Sat by Pulse Oximetry: 93 Respiratory Rate: 17 Blood Pressure: 141/67 Vital Signs: Last Vital Signs Temp 98 F 07/01/18 08:29 Pulse 54 L 07/01/18 08:29 Resp 17 07/01/18 08:29 BP 131/65 07/01/18 08:29 Pulse Ox 93 L 07/01/18 08:29 Height: 5 ft 2 in Weight: 62 kg ASA Class: 3 Mental Status: Alert & Oriented x3 Airway Class: Mallampati = 2 Dentition: Reports: Edentulous ROM/Head Extension: Full Lungs: Clear to Auscultation, Normal Respiratory Effort Cardiovascular: Regular Rate, Regular Rhythm - Lab Values: Laboratory Last Values WBC 5.54 K/uL (4.0-11.0) 07/01/18 04:55 RBC 4.12 M/uL (4.30-5.90) L 07/01/18 04:55 Hgb 12.9 g/dL (12.0-16.0) 07/01/18 04:55 Hct 37.4 % (36.0-46.0) 07/01/18 04:55 MCV 90.8 fL (80.0-98.0) 07/01/18 04:55 MCH 31.3 pg (27.0-32.0) 07/01/18 04:55 MCHC 34.5 g/dL (31.0-37.0) 07/01/18 04:55 RDW Std Deviation 39.4 fl (28.0-62.0) 07/01/18 04:55 RDW Coeff of Miguelito 12 % (11.0-15.0) 07/01/18 04:55 Plt Count 178 K/uL (150-400) 07/01/18 04:55 MPV 10.30 fL (7.40-12.00) 07/01/18 04:55 Neut % (Auto) 48.7 % (48.0-80.0) 07/01/18 04:55 Lymph % (Auto) 39.5 % (16.0-40.0) 07/01/18 04:55 Isabela % (Auto) 10.3 % (0.0-15.0) 07/01/18 04:55 Eos % (Auto) 1.3 % (0.0-7.0) 07/01/18 04:55 Baso % (Auto) 0.2 % (0.0-1.5) 07/01/18 04:55 Neut # (Auto) 2.7 K/uL (1.4-5.7) 07/01/18 04:55 Lymph # (Auto) 2.2 K/uL (0.6-2.4) 07/01/18 04:55 Isabela # (Auto) 0.6 K/uL (0.0-0.8) 07/01/18 04:55 Eos # (Auto) 0.1 K/uL (0.0-0.7) 07/01/18 04:55 Baso # (Auto) 0.0 K/uL (0.0-0.1) 07/01/18 04:55 Nucleated RBC % 0.0 /100WBC 07/01/18 04:55 Nucleated RBCs # 0 K/uL 07/01/18 04:55 INR 1.03 06/30/18 00:05 Sodium 138 mmol/L (136-145) 07/01/18 04:55 Potassium 4.5 mmol/L (3.5-5.1) 07/01/18 04:55 Chloride 103 mmol/L (98-107) 07/01/18 04:55 Carbon Dioxide 28.0 mmol/L (21.0-32.0) 07/01/18 04:55 BUN 7 mg/dL (7.0-18.0) 07/01/18 04:55 Creatinine 0.7 mg/dL (0.6-1.0) 07/01/18 04:55 Est Cr Clr Drug Dosing 57.46 mL/min 07/01/18 04:55 Estimated GFR (MDRD) > 60.0 ml/min 07/01/18 04:55 Glucose 95 mg/dL (74-106) 07/01/18 04:55 POC Glucose 90 mg/dL (60-110) 07/01/18 06:34 Calcium 9.3 mg/dL (8.5-10.1) 07/01/18 04:55 Total Bilirubin 0.4 mg/dL (0.2-1.0) 06/30/18 00:05 AST 29 IU/L (15-37) 06/30/18 00:05 ALT 29 IU/L (14-63) 06/30/18 00:05 Alkaline Phosphatase 78 U/L (46-116) 06/30/18 00:05 Total Protein 7.4 g/dL (6.4-8.2) 06/30/18 00:05 Albumin 3.9 g/dL (3.4-5.0) 06/30/18 00:05 Globulin 3.5 g/dL (2.6-4.0) 06/30/18 00:05 Albumin/Globulin Ratio 1.1 (0.9-1.6) 06/30/18 00:05 Urine Color YELLOW 06/30/18 10:18 Urine Appearance CLEAR 06/30/18 10:18 Urine pH 5.5 (5.0-8.0) 06/30/18 10:18 Ur Specific [place] <= 1.005 (1.001-1.035) 06/30/18 10:18 Urine Protein NEGATIVE mg/dL (NEGATIVE) 06/30/18 10:18 Urine Glucose (UA) NEGATIVE mg/dL (NEGATIVE) 06/30/18 10:18 Urine Ketones NEGATIVE mg/dL (NEGATIVE) 06/30/18 10:18 Urine Occult Blood NEGATIVE (NEGATIVE) 06/30/18 10:18 Urine Nitrite NEGATIVE (NEGATIVE) 06/30/18 10:18 Urine Bilirubin NEGATIVE (NEGATIVE) 06/30/18 10:18 Urine Urobilinogen 0.2 EU/dL (<2.0) 06/30/18 10:18 Ur Leukocyte Esterase NEGATIVE (NEGATIVE) 06/30/18 10:18 Ethyl Alcohol 166 mg/dL 06/30/18 00:05 - Allergies Allergies/Adverse Reactions: Allergies Allergy/AdvReac Type Severity Reaction Status Date / Time cephalexin [From Keflex] Allergy Itching Verified 06/30/18 03:25 Iodinated Contrast- Oral and Allergy Itching Verified 06/30/18 03:25 IV Dye [Iodinated Contrast Media - IV Dye] Penicillins Allergy Edema Verified 06/30/18 03:25 - Blood Blood Available: No - Anesthesia Plan Pre-Op Medication Ordered: None - Acknowledgements Anesthesia Type Planned: General Anesthesia Pt an Appropriate Candidate for the Planned Anesthesia: Yes Alternatives and Risks of Anesthesia Discussed w Pt/Guardian: Yes Pt/Guardian Understands and Agrees with Anesthesia Plan: Yes Additional Comments: PMH: alcohol use disorder-active, s/p cardoac ablation, copd, htn, dm2-diet controll, anx/dep PLAN: GET PreAnesthesia Questionnaire HEENT History: Reports: Hard of Hearing, Impaired Vision, Other (See Below) Other HEENT History: wears glasses, top denture, lower partial, ayan hearing aids Cardiovascular History: Reports: Arrhythmia, High Cholesterol, Hypertension. 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: Musculoskeletal History: Reports: Arthritis, Other (See Below) Other Musculoskeletal History: (L) humerus fx Neurological History: Reports: Other (See Below) Other Neuro History: hx head injury Psychiatric History: Reports: Anxiety Endocrine/Metabolic History: Reports: Diabetes, Type II Other Endocrine/Metabolic History: diet controlled type II diabetes Hematologic History: Reports: None Immunologic History: Reports: None Oncologic (Cancer) History: Reports: None Dermatologic History: Reports: Other (See Below) Other Dermatologic History: rash to back - Past Surgical History Head Surgeries/Procedures: Reports: None Cardiovascular Surgical History: Reports: Cardiac Ablation GI Surgical History: Reports: Colonoscopy Other GI Surgeries/Procedures: hx rectal fistulectomy Female Surgical History: Reports: Hysterectomy, Other (See Below) Other Female Surgeries/Procedures: excision of chula anal fistula, axillary lumpectomy - SUBSTANCE USE Smoking Status *Q: Current Every Day Smoker Days Per Week of Alcohol Use: 3 Number of Drinks Per Day: 5 Total Drinks Per Week: 15 Recreational Drug Use History: No - HOME MEDS Home Medications: Home Meds Citalopram Hydrobromide [Celexa] 40 mg PO DAILY 12/26/15 [History] Folic Acid 1 tab PO DAILY@1200 12/26/15 [History] Garlic 1,000 mg PO BEDTIME 12/26/15 [History] Lisinopril 40 mg PO DAILY 12/26/15 [History] Lutein/Min/Vit C/Vit E Acetate [Ocuvite Lutein] 1 tab PO DAILY 12/26/15 [History ] Exira-3/DHA/Epa/Fish Oil [Exira-3 Fish Oil 1,000 MG Sfgl] 1,000 mg PO BID [History] Simvastatin [Zocor] 40 mg PO BEDTIME 12/26/15 [History] Vitamin B Complex 1 tab PO DAILY@1200 12/26/15 [History] traZODone HCl [Trazodone HCl] 150 mg PO BEDTIME 12/26/15 [History] Calcium Carbonate/Vitamin D3 [Calcium 600 + Vit D Tablet] 2 tab PO BID@1200, 2100 09/16/17 [History] Diltiazem HCl [Diltiazem 24Hr ER] 120 mg PO DAILY 09/16/17 [History] Fluticasone Propionate [Flonase] 2 spray NASBOTH DAILY PRN 09/16/17 [History] LORazepam 0.5 mg PO TID PRN 09/16/17 [History] Docusate Sodium 100 mg PO DAILY PRN 11/05/17 [History] Levalbuterol Tartrate [Xopenex Hfa] 2 puff INH ASDIRECTED 11/05/17 [History] Esomeprazole [NexIUM] 40 mg PO ACBREAKFAST 06/30/18 [History] Ibuprofen [Motrin] 800 mg PO BID@1200,2100 06/30/18 [History] - CURRENT (IN HOUSE) MEDS Current Meds: Current Medications Hydrocodone Bitart/Acetaminophen ([place] 325-5 Mg) 1 - 2 tab PO Q4H PRN PRN Reason: Pain Last Admin: 07/01/18 00:36 Dose: 2 tab Calcium Carbonate (Caltrate 600+D 1500 Mg-400 Units) 1 tab PO BID@1200,2100 [facility] Last Admin: 06/30/18 20:40 Dose: 1 tab Citalopram Hydrobromide (Celexa) 40 mg PO DAILY [facility] Last Admin: 06/30/18 10:28 Dose: 40 mg Diltiazem HCl (Cardizem Cd) 120 mg PO DAILY [facility] Last Admin: 06/30/18 12:09 Dose: 120 mg Docusate Sodium (Colace) 100 mg PO ASDIRECTED PRN PRN Reason: Constipation Fluticasone Propionate (Flonase) 16 gm NASBOTH DAILY PRN PRN Reason: Allergies Folic Acid (Folic Acid) 1 mg PO DAILY [facility] Last Admin: 06/30/18 10:28 Dose: 1 mg Sodium Chloride (Normal Saline) 1,000 mls @ 50 mls/hr IV ASDIRECTED [facility] Last Admin: 07/01/18 00:38 Dose: 50 mls/hr Clindamycin Phosphate 600 mg/ (Premix) 50 mls @ 100 mls/hr IV ONCALL [facility] Insulin Aspart (Novolog) 0 unit SUBCUT TIDAC [facility]; Protocol Last Admin: 07/01/18 06:56 Dose: Not Given Lisinopril (Prinivil) 40 mg PO DAILY [facility] Last Admin: 06/30/18 12:10 Dose: 40 mg Lorazepam (Ativan) 0.5 mg PO TID PRN PRN Reason: Anxiety Morphine Sulfate (Morphine) 2 mg IVPUSH Q2H PRN PRN Reason: Pain Last Admin: 07/01/18 08:21 Dose: 2 mg Nicotine (Habitrol) 14 mg TRDERM Q24H [facility] Last Admin: 06/30/18 12:09 Dose: 14 mg Omeprazole (Omeprazole) 20 mg PO ACBREAKFAST [facility] Last Admin: 07/01/18 08:22 Dose: Not Given Xopenex Hfa 2 each INH Q4H PRN PRN Reason: SHORTNESS OF BREATH Simvastatin (Zocor) 40 mg PO BEDTIME [facility] Last Admin: 06/30/18 20:40 Dose: 40 mg Sodium Chloride (Saline Flush) 10 ml FLUSH ASDIRECTED PRN PRN Reason: Keep Vein Open Sodium Chloride (Saline Flush) 2.5 ml FLUSH ASDIRECTED PRN PRN Reason: Keep Vein Open Thiamine HCl (Vitamin B-1) 100 mg PO Q24H [facility] Last Admin: 06/30/18 10:28 Dose: 100 mg Trazodone HCl (Trazodone) 150 mg PO BEDTIME [facility] Last Admin: 06/30/18 20:41 Dose: 150 mg Discontinued Medications Diltiazem HCl (Cardizem Cd) 120 mg PO DAILY [facility] Sodium Chloride (Normal Saline) 1,000 mls @ 999 mls/hr IV STAT ONE Stop: 06/30/18 00:44 Last Admin: 06/30/18 00:07 Dose: 999 mls/hr Sodium Chloride (Normal Saline) 1,000 mls @ 125 mls/hr IV ASDIRECTED [facility] Last Admin: 06/30/18 10:12 Dose: 125 mls/hr Clindamycin Phosphate 600 mg/ (Premix) 50 mls @ 92.593 mls/hr IV ONETIME ONE Stop: 06/30/18 18:47 Last Admin: 06/30/18 18:49 Dose: 92.593 mls/hr Ketorolac Tromethamine (Toradol) 30 mg IVPUSH ONETIME ONE Stop: 06/29/18 23:45 Last Admin: 06/30/18 00:07 Dose: 30 mg Lisinopril (Prinivil) 40 mg PO DAILY [facility] Morphine Sulfate (Morphine) 2 mg IVPUSH ONETIME ONE Stop: 06/30/18 01:10 Last Admin: 06/30/18 01:13 Dose: 2 mg Ondansetron HCl (Zofran) 4 mg IVPUSH ONETIME ONE Stop: 06/29/18 23:45 Last Admin: 06/30/18 00:06 Dose: 4 mg
[2018-07-01] MEDS: Thiamine 100 MG Tab PO SCH (10:57)
[2018-07-01] MEDS: Folic Acid 1 MG Tab PO SCH (10:57)
[2018-07-01] MEDS: Citalopram 20 MG Tab PO SCH (10:58)
[2018-07-01] MEDS: Nicotine 14 MG/24 Hr Patch TRDERM SCH (11:29)
[2018-07-01] MEDS: Diltiazem 120 MG Cap.CD PO SCH (11:31)
[2018-07-01] MEDS: Lisinopril 10 MG Tab PO SCH (11:33)
[2018-07-01] MEDS: Calcium Carbonate/Vitamin D3 1500 MG-400 Units Tab PO SCH ×2 (11:33→21:15)
[2018-07-01] MEDS ORDERED: Clindamycin Phosphate in D5W 600 MG in Premix Bag 1 BAG IV SCH ×2 (12:00)
[2018-07-01] MEDS ORDERED: fentaNYL 250 MCG/5 ML SDV ONE (14:43)
[2018-07-01] MEDS ORDERED: Midazolam 1 MG/ML 2 ML SDV ONE (14:43)
[2018-07-01] MEDS ORDERED: Propofol 200 MG/20 ML SDV ONE (14:43)
[2018-07-01] MEDS ORDERED: Ketorolac 30 MG/ML SDV ONE (15:36)
[2018-07-01] MEDS ORDERED: Dexamethasone 4 MG/ML 5 ML MDV ONE (15:36)
[2018-07-01] MEDS ORDERED: Metoclopramide 10 MG/2 ML SDV ONE (15:36)
[2018-07-01] MEDS ORDERED: Ondansetron 4 MG/2 ML SDV ONE (15:36)
[2018-07-01] MEDS ORDERED: Glycopyrrolate 0.2 MG/ML SDV ONE (16:40)
[2018-07-01] MEDS ORDERED: Neostigmine Methylsulfate 1 MG/ML 5 ML Syringe ONE (16:41)
--- NOTE | 2018-07-01 16:58 | PCM.OPNOTE ---
- General Post-Op/Procedure Note Date of Surgery/Procedure: 07/01/18 Operative Procedure(s): CR left humerus fracture with insertion of IM nail Post-Op Diagnosis: Left humerus fracture, proximal 1/3 Anesthesia Technique: General ET Tube Primary Surgeon: Alma Hill Environmental Sustainability Manager: Claudia Perez in mLs: 20 Condition: Fair Free Text/Narrative:: #[id number] Intake & Output 07/01/18 07/01/18 07/01/18 06:59 14:59 22:59 Intake Total 600 Output Total 1000 Balance -400
--- NOTE | 2018-07-01 18:18 | OR ---
SURGEON: Alma Hill MD DATE OF PROCEDURE: 07/01/2018 PREOPERATIVE DIAGNOSIS: Left proximal 1/3rd humerus fracture. POSTOPERATIVE DIAGNOSIS: Left proximal 1/3rd humerus fracture. PROCEDURE: Closed reduction of left humerus with insertion of intramedullary nail. SHIPPING AND RECEIVING COORDINATOR: Claudia Perez PA-C ANESTHESIA: General. ESTIMATED BLOOD LOSS: 20 mL. TOURNIQUET TIME: 0 minutes. COMPLICATIONS: None. DVT PROPHYLAXIS: PAS boots to bilateral lower extremities. IMPLANTS USED: Leola T2 humeral nail, size 9 mm x 240 mm with three 5.0 mm screws of appropriate length. BRIEF HISTORY: Kendra is a 72-year-old right-hand dominant female who sustained a fall, landing on her left upper extremity. She complained of immediate pain. X-rays did show a fracture of the proximal 1/3rd of the humerus. We initially tried conservative treatment in the form of a humeral fracture brace. This failed to control the fracture and I recommended surgical treatment. The risks and goals of the procedure were discussed with the patient and were documented preoperatively. She agreed to proceed. DESCRIPTION OF PROCEDURE: The patient was properly identified and brought to the operating room. She was transferred from the OR cart and placed on the operating table in supine position. General anesthesia was administered. After adequate anesthesia was obtained, she was placed into a beach-chair type position. Care was taken to pad all bony prominences. Her head was secured. The left upper extremity was then prepped in standard fashion using ChloraPrep solution. It was then sterilely draped. A time-out was performed to ensure correct site and procedure. Preoperative antibiotics were given. The surgical site had been marked preoperatively. Bony landmarks were identified with a marking pen. An incision over the lateral deltoid just inferior to the acromion was made. The subcutaneous tissues were incised and the deltoid was split. This biceps tendon was palpated anteriorly. The supraspinatus tendon was then incised with a knife. An awl was then placed into the proximal humerus. A guide pin was then inserted. The starting position was somewhat lateral; however, I was able to get a straight trajectory to the intramedullary canal and I elected to proceed with starting point. The bone was quite soft. The proximal fragment had a large butterfly piece laterally. Once the guide tessie was inserted through the awl, the fracture was realigned and the guide pin was passed into the distal fragment to the level of the olecranon fossa. The guide tessie was then measured. It was felt that a 240 mm would be appropriate length. The diameter of the intramedullary canal at the isthmus was also templated. It was felt that a size 9 tessie would be appropriate. This was assembled on the back table. An entry reamer was then used to open up the proximal portion of the humerus. The tessie was then inserted without difficulty. No reaming was necessary, and the tessie passed easily past the fracture site into the distal fragment. It was malleted into position. The position of the intramedullary tessie was then checked and it was felt that it was of appropriate length. I felt that we had adequate placement proximally as well. The large lateral butterfly fragment made placing the proximal screws less secure. I elected to proceed with a straight static screw rather than the oblique screws. The guide was placed against the bone and drilled to the appropriate length. C-arm imaging assisted with placement of the screws. Two 5.0 mm screws were placed. This did not have great purchase as the bone quality overall was quite poor. Care was taken to make sure that the screws did not penetrate the articular cortex. The insertion guide was then disassembled, then returned our attention to the distal tessie. Since the fracture was quite proximal and we needed to control rotation, I elected to place a distal screw. Perfect circles were made using the C-arm image intensifier. I have used an anterior to posterior trajectory. An incision was made over the anterior aspect of the distal upper arm, and subcutaneous tissues were dissected down to the level of the bone. Two [employer] [employer] [place] retractors were then placed to hold out any soft tissue. The guide pin was aligned with the C-arm and passed through the intramedullary tessie. A 5.0 mm screw of appropriate length was then placed. Final C-arm images confirmed acceptable reduction of the fracture with no apparent rotational abnormality. The fracture appeared to be out to length as well. The wounds were then copiously irrigated with saline solution. The incision through the supraspinatus tendon was closed with #2 FiberWire. The deltoid was loosely reapproximated with 0 Vicryl and the subcutaneous tissues were closed with 2-0 Vicryl. Jorge were used for skin closure. An Aquacel dressing was placed over the wounds at the completion. She was placed into a sling. She was awakened from her anesthetic and transferred back to the operating room cart. She was brought to recovery room in stable condition. All needle and sponge counts were correct. CAROL / JESSEE /[id number]
[2018-07-01] MEDS: traZODone 50 MG Tab PO SCH (21:14)
[2018-07-01] MEDS: Simvastatin 40 MG Tab PO SCH (21:15)
[2018-07-01] MEDS: Clindamycin Phosphate in D5W 600 MG in Premix Bag 1 BAG IV SCH ×2 (23:56)
[2018-07-02] MEDS: Sodium Chloride 0.9% 1,000 ML IV SCH (02:38)
[2018-07-02] MEDS: Acetaminophen/HYDROcodone 325-5 MG Tab PO PRN ×3 (05:24→15:02)
[2018-07-02 05:37] LABS: CHLORIDE,CL 102 mmol/L (98-107); SODIUM,NA 135 mmol/L (136-145)
[2018-07-02] MEDS: Omeprazole 20 MG Cap.CR PO SCH (06:43)
[2018-07-02] MEDS: Insulin Aspart 100 Units/ML 3 ML Pen SUBCUT SCH ×2 (07:38→12:52)
--- NOTE | 2018-07-02 07:44 | PCM.POSTAN ---
POST ANESTHESIA ASSESSMENT - MENTAL STATUS Mental Status: Alert, Oriented - RESPIRATORY Respiratory Status: Respiratory Rate WNL, Airway Patent, O2 Saturation Stable - CARDIOVASCULAR CV Status: Pulse Rate WNL, Blood Pressure Stable - GASTROINTESTINAL GI Status: No Symptoms - POST OP HYDRATION Hydration Status: Adequate & Stable
--- NOTE | 2018-07-02 07:45 | PCM48HPAN ---
Post Anesthesia Note - EVALUATION WITHIN 48HRS OF ANESTHETIC Vital Signs in Normal Range: Yes Patient Participated in Evaluation: Yes Respiratory Function Stable: Yes Airway Patent: Yes Cardiovascular Function Stable: Yes Hydration Status Stable: Yes Pain Control Satisfactory: Yes Nausea and Vomiting Control Satisfactory: Yes Mental Status Recovered: Yes Pulse Rate: 54 Resp Rate: 17 Blood Pressure: 131/65
[2018-07-02] MEDS: Citalopram 20 MG Tab PO SCH (08:37)
[2018-07-02] MEDS: Thiamine 100 MG Tab PO SCH (08:39)
[2018-07-02] MEDS: Folic Acid 1 MG Tab PO SCH (08:40)
[2018-07-02] MEDS: Diltiazem 120 MG Cap.CD PO SCH (08:48)
--- NOTE | 2018-07-02 08:49 | PCM.SURGPN ---
- General Info Date of Service: 07/02/18 Date of Surgery/Procedure: 07/01/18 POD#: 1 Functional Status: Reports: Pain Controlled, Tolerating Diet, Ambulating, Urinating - Review of Systems General: Reports: No Symptoms Pulmonary: Reports: No Symptoms Cardiovascular: Reports: No Symptoms Gastrointestinal: Reports: No Symptoms Musculoskeletal: Reports: Shoulder Pain Systems Review Comment:: pt is up to chair for breakfast tolerating PO intake well, no n/v pain controlled with norco 5/325 has been OOB to bathroom and chair denies distal paralysis/paresthesias - Patient Data Vitals - Most Recent: Last Vital Signs Temp 97.6 F 07/02/18 04:00 Pulse 54 L 07/02/18 07:45 Resp 17 07/02/18 07:45 BP 131/65 07/02/18 07:45 Pulse Ox 93 L 07/02/18 04:00 Weight - Most Recent: 62 kg I&O - Last 24 Hours: Intake & Output 07/01/18 07/02/18 07/02/18 22:59 06:59 14:59 Intake Total 1650 1050 Output Total 1350 880 Balance 300 170 Lab Results Last 24 Hrs: Laboratory Results - last 24 hr 07/01/18 07/02/18 07/02/18 Range/Units 11:54 05:14 05:14 WBC 8.22 (4.0-11.0) K/uL RBC 4.06 L (4.30-5.90) M/uL Hgb 12.8 (12.0-16.0) g/dL Hct 36.9 (36.0-46.0) % MCV 90.9 (80.0-98.0) fL MCH 31.5 (27.0-32.0) pg MCHC 34.7 (31.0-37.0) g/dL RDW Std Deviation 38.9 (28.0-62.0) fl RDW Coeff of Miguelito 12 (11.0-15.0) % Plt Count 154 (150-400) K/uL MPV 10.10 (7.40-12.00) fL Neut % (Auto) 83.5 H (48.0-80.0) % Lymph % (Auto) 8.6 L (16.0-40.0) % [place] % (Auto) 7.9 (0.0-15.0) % Eos % (Auto) 0.0 (0.0-7.0) % Baso % (Auto) 0.0 (0.0-1.5) % Neut # (Auto) 6.9 H (1.4-5.7) K/uL Lymph # (Auto) 0.7 (0.6-2.4) K/uL [place] # (Auto) 0.7 (0.0-0.8) K/uL Eos # (Auto) 0.0 (0.0-0.7) K/uL Baso # (Auto) 0.0 (0.0-0.1) K/uL Nucleated RBC % 0.0 /100WBC Nucleated RBCs # 0 K/uL Sodium 135 L (136-145) mmol/L Potassium 4.7 (3.5-5.1) mmol/L Chloride 102 (98-107) mmol/L Carbon Dioxide 28.3 (21.0-32.0) mmol/L BUN 7 (7.0-18.0) mg/dL Creatinine 0.8 (0.6-1.0) mg/dL Est Cr Clr Drug Dosing 50.27 mL/min Estimated GFR (MDRD) > 60.0 ml/min Glucose 193 H (74-106) mg/dL POC Glucose 117 H (60-110) mg/dL Calcium 9.0 (8.5-10.1) mg/dL 07/02/18 Range/Units 06:31 WBC (4.0-11.0) K/uL RBC (4.30-5.90) M/uL Hgb (12.0-16.0) g/dL Hct (36.0-46.0) % MCV (80.0-98.0) fL MCH (27.0-32.0) pg MCHC (31.0-37.0) g/dL RDW Std Deviation (28.0-62.0) fl RDW Coeff of Miguelito (11.0-15.0) % Plt Count (150-400) K/uL MPV (7.40-12.00) fL Neut % (Auto) (48.0-80.0) % Lymph % (Auto) (16.0-40.0) % [place] % (Auto) (0.0-15.0) % Eos % (Auto) (0.0-7.0) % Baso % (Auto) (0.0-1.5) % Neut # (Auto) (1.4-5.7) K/uL Lymph # (Auto) (0.6-2.4) K/uL [place] # (Auto) (0.0-0.8) K/uL Eos # (Auto) (0.0-0.7) K/uL Baso # (Auto) (0.0-0.1) K/uL Nucleated RBC % /100WBC Nucleated RBCs # K/uL Sodium (136-145) mmol/L Potassium (3.5-5.1) mmol/L Chloride (98-107) mmol/L Carbon Dioxide (21.0-32.0) mmol/L BUN (7.0-18.0) mg/dL Creatinine (0.6-1.0) mg/dL Est Cr Clr Drug Dosing mL/min Estimated GFR (MDRD) ml/min Glucose (74-106) mg/dL POC Glucose 207 H (60-110) mg/dL Calcium (8.5-10.1) mg/dL Med Orders - Current: Current Medications Hydrocodone Bitart/Acetaminophen ([facility] 325-5 Mg) 1 - 2 tab PO Q4H PRN PRN Reason: Pain Last Admin: 07/02/18 05:24 Dose: 2 tab Calcium Carbonate (Caltrate 600+D 1500 Mg-400 Units) 1 tab PO BID@1200,2100 [facility] Last Admin: 07/01/18 21:15 Dose: 1 tab Citalopram Hydrobromide (Celexa) 40 mg PO DAILY [facility] Last Admin: 07/02/18 08:37 Dose: 40 mg Diltiazem HCl (Cardizem Cd) 120 mg PO DAILY [facility] Last Admin: 07/01/18 11:31 Dose: 120 mg Docusate Sodium (Colace) 100 mg PO ASDIRECTED PRN PRN Reason: Constipation Fluticasone Propionate (Flonase) 16 gm NASBOTH DAILY PRN PRN Reason: Allergies Folic Acid (Folic Acid) 1 mg PO DAILY [facility] Last Admin: 07/02/18 08:40 Dose: 1 mg Sodium Chloride (Normal Saline) 1,000 mls @ 50 mls/hr IV ASDIRECTED [facility] Last Admin: 07/02/18 02:38 Dose: 50 mls/hr Clindamycin Phosphate 600 mg/ (Premix) 50 mls @ 100 mls/hr IV ONCALL [facility] Last Admin: 07/01/18 23:57 Dose: 100 mls/hr Insulin Aspart (Novolog) 0 unit SUBCUT TIDAC [facility]; Protocol Last Admin: 07/02/18 07:38 Dose: 2 units Lisinopril (Prinivil) 40 mg PO DAILY [facility] Last Admin: 07/01/18 11:33 Dose: 40 mg Lorazepam (Ativan) 0.5 mg PO TID PRN PRN Reason: Anxiety Morphine Sulfate (Morphine) 2 mg IVPUSH Q2H PRN PRN Reason: Pain Last Admin: 07/01/18 08:21 Dose: 2 mg Nicotine (Habitrol) 14 mg TRDERM Q24H [facility] Last Admin: 07/01/18 11:29 Dose: 14 mg Omeprazole (Omeprazole) 20 mg PO ACBREAKFAST [facility] Last Admin: 07/02/18 06:43 Dose: 20 mg Xopenex Hfa 2 each INH Q4H PRN PRN Reason: SHORTNESS OF BREATH Simvastatin (Zocor) 40 mg PO BEDTIME [facility] Last Admin: 07/01/18 21:15 Dose: 40 mg Sodium Chloride (Saline Flush) 10 ml FLUSH ASDIRECTED PRN PRN Reason: Keep Vein Open Sodium Chloride (Saline Flush) 2.5 ml FLUSH ASDIRECTED PRN PRN Reason: Keep Vein Open Thiamine HCl (Vitamin B-1) 100 mg PO Q24H [facility] Last Admin: 07/02/18 08:39 Dose: 100 mg Trazodone HCl (Trazodone) 150 mg PO BEDTIME [facility] Last Admin: 07/01/18 21:14 Dose: 150 mg Discontinued Medications Citalopram Hydrobromide (Celexa) 40 mg PO .STK-MED ONE Stop: 06/30/18 09:01 Citalopram Hydrobromide (Celexa) 40 mg PO .STK-MED ONE Stop: 07/01/18 09:01 Dexamethasone (Dexamethasone) Confirm Administered Dose 20 mg .ROUTE .STK-MED ONE Stop: 07/01/18 15:37 Diltiazem HCl (Cardizem Cd) 120 mg PO DAILY [facility] Fentanyl (Sublimaze) Confirm Administered Dose 250 mcg .ROUTE .STK-MED ONE Stop: 07/01/18 14:44 Glycopyrrolate (Robinul) Confirm Administered Dose 0.4 mg .ROUTE .STK-MED ONE Stop: 07/01/18 16:41 Sodium Chloride (Normal Saline) 1,000 mls @ 999 mls/hr IV STAT ONE Stop: 06/30/18 00:44 Last Admin: 06/30/18 00:07 Dose: 999 mls/hr Sodium Chloride (Normal Saline) 1,000 mls @ 125 mls/hr IV ASDIRECTED [facility] Last Admin: 06/30/18 10:12 Dose: 125 mls/hr Clindamycin Phosphate 600 mg/ (Premix) 50 mls @ 92.593 mls/hr IV ONETIME ONE Stop: 06/30/18 18:47 Last Admin: 06/30/18 18:49 Dose: 92.593 mls/hr Lidocaine HCl (Xylocaine-Mpf 1%) Confirm Administered Dose 5 mls @ as directed .ROUTE .STK-MED ONE Stop: 07/01/18 14:44 Clindamycin Phosphate 600 mg/ (Premix) 50 mls @ 100 mls/hr IV Q8H [facility] Stop: 07/02/18 08:29 Last Admin: 07/01/18 23:56 Dose: 100 mls/hr Ketorolac Tromethamine (Toradol) 30 mg IVPUSH ONETIME ONE Stop: 06/29/18 23:45 Last Admin: 06/30/18 00:07 Dose: 30 mg Ketorolac Tromethamine (Toradol) Confirm Administered Dose 30 mg .ROUTE .STK- MED ONE Stop: 07/01/18 15:37 Lisinopril (Prinivil) 40 mg PO DAILY [facility] Metoclopramide HCl (Reglan) Confirm Administered Dose 10 mg .ROUTE .STK-MED ONE Stop: 07/01/18 15:37 Midazolam HCl (Versed 1 Mg/Ml) Confirm Administered Dose 2 mg .ROUTE .STK-MED ONE Stop: 07/01/18 14:44 Morphine Sulfate (Morphine) 2 mg IVPUSH ONETIME ONE Stop: 06/30/18 01:10 Last Admin: 06/30/18 01:13 Dose: 2 mg Neostigmine Methylsulfate (Neostigmine) Confirm Administered Dose 5 mg .ROUTE .STK-MED ONE Stop: 07/01/18 16:42 Ondansetron HCl (Zofran) 4 mg IVPUSH ONETIME ONE Stop: 06/29/18 23:45 Last Admin: 06/30/18 00:06 Dose: 4 mg Ondansetron HCl (Zofran) Confirm Administered Dose 8 mg .ROUTE .STK-MED ONE Stop: 07/01/18 15:37 Propofol (Diprivan 20 Ml) Confirm Administered Dose 200 mg .ROUTE .STK-MED ONE Stop: 07/01/18 14:44 - Exam Wound/Incisions: Dressing Dry and Intact. No: Drainage, Erythema General: Alert, Oriented Cardiovascular: Regular Rate, Regular Rhythm Extremities: Other (exam LUE - dressings clean/dry/intact. AROM to elbow and wrist. AIN/PIN/ulnar motor intact, radial/ulnar/median sensation intact, radial pulse 2+. ) Physical Findings Comment:: vss, afeb hgb 12.8 - Problem List & Annotations (1) Fracture closed, humerus SNOMED Code(s): 07658505 Code(s): S42.309A - UNSP FRACTURE OF SHAFT OF HUMERUS, UNSP ARM, INIT Status: Acute Current Visit: Yes Qualifiers: Encounter type: initial encounter Humerus Location: proximal Fracture morphology: unspecified fracture morphology Laterality: left Qualified Code( s): S42.202A - Unspecified fracture of upper end of left humerus, initial encounter for closed fracture - Problem List Review Problem List Initiated/Reviewed/Updated: Yes - My Orders Last 24 Hours: Active Orders 24 hr Category Date Time Status Activity as Tolerated [RC] .Routine Care 07/01/18 16:51 Active Blood Glucose Check, Bedside [RC] TIDAC Care 07/01/18 18:20 Active Clindamycin Phosphate in D5W [Cleocin in D5W] 600 mg Med 07/01/18 12:00 Active Premix Bag 1 bag IV ONCALL Medication Orders Hydrocodone Bitart/Acetaminophen ([facility] 325-5 Mg) 1 - 2 tab PO Q4H PRN PRN Reason: Pain Last Admin: 07/02/18 05:24 Dose: 2 tab Admin: 07/01/18 19:09 Dose: 2 tab Admin: 07/01/18 11:31 Dose: 2 tab Admin: 07/01/18 00:36 Dose: 2 tab Admin: 06/30/18 15:35 Dose: 2 tab Admin: 06/30/18 09:38 Dose: 2 tab Calcium Carbonate (Caltrate 600+D 1500 Mg-400 Units) 1 tab PO BID@1200,2100 [facility] Last Admin: 07/01/18 21:15 Dose: 1 tab Admin: 07/01/18 11:33 Dose: 1 tab Admin: 06/30/18 20:40 Dose: 1 tab Admin: 06/30/18 12:15 Dose: 1 tab Citalopram Hydrobromide (Celexa) 40 mg PO DAILY [facility] Last Admin: 07/02/18 08:37 Dose: 40 mg Admin: 07/01/18 10:58 Dose: Admin: 06/30/18 10:28 Dose: 40 mg Diltiazem HCl (Cardizem Cd) 120 mg PO DAILY [facility] Last Admin: 07/01/18 11:31 Dose: 120 mg Admin: 06/30/18 12:09 Dose: 120 mg Docusate Sodium (Colace) 100 mg PO ASDIRECTED PRN PRN Reason: Constipation Fluticasone Propionate (Flonase) 16 gm NASBOTH DAILY PRN PRN Reason: Allergies Folic Acid (Folic Acid) 1 mg PO DAILY [facility] Last Admin: 07/02/18 08:40 Dose: 1 mg Admin: 07/01/18 10:57 Dose: Admin: 06/30/18 10:28 Dose: 1 mg Sodium Chloride (Normal Saline) 1,000 mls @ 50 mls/hr IV ASDIRECTED [facility] Last Admin: 07/02/18 02:38 Dose: 50 mls/hr Infusion: 07/01/18 20:38 Dose: 50 mls/hr Admin: 07/01/18 00:38 Dose: 50 mls/hr Clindamycin Phosphate 600 mg/ (Premix) 50 mls @ 100 mls/hr IV ONCALL [facility] Last Admin: 07/01/18 23:57 Dose: 100 mls/hr Insulin Aspart (Novolog) 0 unit SUBCUT TIDAC [facility]; Protocol Last Admin: 07/02/18 07:38 Dose: 2 units Admin: 07/01/18 17:44 Dose: Admin: 07/01/18 14:26 Dose: Not Given Admin: 07/01/18 06:56 Dose: Not Given Admin: 06/30/18 17:13 Dose: Not Given Admin: 06/30/18 12:08 Dose: Not Given Lisinopril (Prinivil) 40 mg PO DAILY [facility] Last Admin: 07/01/18 11:33 Dose: 40 mg Admin: 06/30/18 12:10 Dose: 40 mg Lorazepam (Ativan) 0.5 mg PO TID PRN PRN Reason: Anxiety Morphine Sulfate (Morphine) 2 mg IVPUSH Q2H PRN PRN Reason: Pain Last Admin: 07/01/18 08:21 Dose: 2 mg Nicotine (Habitrol) 14 mg TRDERM Q24H [facility] Last Admin: 07/01/18 11:29 Dose: 14 mg Admin: 06/30/18 12:09 Dose: 14 mg Omeprazole (Omeprazole) 20 mg PO ACBREAKFAST [facility] Last Admin: 07/02/18 06:43 Dose: 20 mg Admin: 07/01/18 08:22 Dose: Xopenex Hfa 2 each INH Q4H PRN PRN Reason: SHORTNESS OF BREATH Simvastatin (Zocor) 40 mg PO BEDTIME [facility] Last Admin: 07/01/18 21:15 Dose: 40 mg Admin: 06/30/18 20:40 Dose: 40 mg Sodium Chloride (Saline Flush) 10 ml FLUSH ASDIRECTED PRN PRN Reason: Keep Vein Open Sodium Chloride (Saline Flush) 2.5 ml FLUSH ASDIRECTED PRN PRN Reason: Keep Vein Open Thiamine HCl (Vitamin B-1) 100 mg PO Q24H [facility] Last Admin: 07/02/18 08:39 Dose: 100 mg Admin: 07/01/18 10:57 Dose: Admin: 06/30/18 10:28 Dose: 100 mg Trazodone HCl (Trazodone) 150 mg PO BEDTIME [facility] Last Admin: 07/01/18 21:14 Dose: 150 mg Admin: 06/30/18 20:41 Dose: 150 mg - Assessment Assessment (Free Text/Narrative):: POD#1 CR with IM nail L humerus - Plan Plan (Free Text/Narrative):: continue pain management okay to discharge home leave dressings in place until follow-up sling for comfort rx written follow-up arranged d/ch instructions done in d/ch plan
[2018-07-02] MEDS: Clindamycin Phosphate in D5W 600 MG in Premix Bag 1 BAG IV SCH ×2 (08:50)
[2018-07-02] MEDS ORDERED: Sodium Chloride 0.9% 500 ML IV SCH (09:15)
[2018-07-02] MEDS: Lisinopril 10 MG Tab PO SCH (09:39)
[2018-07-02 11:37] VITALS: BP 124/52
--- NOTE | 2018-07-02 11:43 | PCM.DCSUM1 ---
Discharge Summary - Hospital Course Brief History: THis 72 year old female with pmh of HTN, HLD, tobacco abuse, alcohol abuse and diverticulitis presented to the ED with complaints of L arm pain after she fell last evening. She reports she was in the [employer] [place] having some beer, went outside to her car to have her cigarette. She got out of her car and walked around it up the curb and the fell in front of the door to the [facility]. She denies dizziness, lightheadedness prior to the fall. She reports she remembers falling and landing right on her L arm and having instant pain. She denies hitting her head or LOC. She reports otherwise feeling well prior to fall. She reports she has been having some intermittent dizziness at home, not associated with alcohol use. She states it comes an goes and is when she is lying in bed, she feels like the room is spinning. She denies chest pain or SOB. No cough or fevers at home. NO abdominal pain, no black or bloody BMs. SHe reports moking 1.5 ppd for 55+ years. Drinks alcohol daily, but no consistently. She reports she is able to go a week without drinking and does not experience withdrawl symptoms or seizures. She denies recreational drug use. In the ED CBC WNL, Na 128, ETOH 166. UA negative. CXR negative for cardiopulmonary process, L huers fracture noted. Dr Hill consulted recommended admission for pain control and possible surgical fixation if warranted when evaluate in AM. PCP, Dr Ngaa Lewis. Diagnosis: Stroke: No - Discharge Data Discharge Date: 07/02/18 Discharge Disposition: Home, Self-Care 01 Condition: Good - Discharge Diagnosis/Problem(s) (1) Fall SNOMED Code(s): 8833097, 422270448 ICD Code: W19.XXXA - UNSPECIFIED FALL, INITIAL ENCOUNTER Status: Acute Current Visit: Yes Qualifiers: Encounter type: initial encounter Qualified Code(s): W19.XXXA - Unspecified fall, initial encounter (2) Fracture closed, humerus SNOMED Code(s): 51628375 ICD Code: S42.309A - UNSP FRACTURE OF SHAFT OF HUMERUS, UNSP ARM, INIT Status: Acute Current Visit: Yes Qualifiers: Encounter type: initial encounter Humerus Location: proximal Fracture morphology: unspecified fracture morphology Laterality: left Qualified Code( s): S42.202A - Unspecified fracture of upper end of left humerus, initial encounter for closed fracture (3) DM type 2 (diabetes mellitus, type 2) SNOMED Code(s): 75676266 ICD Code: E11.9 - TYPE 2 DIABETES MELLITUS WITHOUT COMPLICATIONS Status: Chronic Current Visit: No Qualifiers: Diabetes mellitus mcc insulin use: without mcc use Diabetes mellitus complication status: without complication Qualified Code(s): E11.9 - Type 2 diabetes mellitus without complications (4) Depression with anxiety SNOMED Code(s): 481582853 ICD Code: F41.8 - OTHER SPECIFIED ANXIETY DISORDERS Status: Chronic Current Visit: No (5) HTN (hypertension) SNOMED Code(s): 56920834 ICD Code: I10 - ESSENTIAL (PRIMARY) HYPERTENSION Status: Chronic Current Visit: No Qualifiers: Hypertension type: essential hypertension Qualified Code(s): I10 - Essential (primary) hypertension (6) Tobacco abuse SNOMED Code(s): 728740442 ICD Code: Z72.0 - TOBACCO USE Status: Chronic Current Visit: No (7) Alcohol use SNOMED Code(s): 052296 ICD Code: Z78.9 - OTHER SPECIFIED HEALTH STATUS Status: Chronic Current Visit: Yes - Patient Summary/Data Operative Procedure(s) Performed: CR left humerus fracture with insertion of IM nail Consults: Consultations 06/30/18 01:18 Consult to Physician [CONS] Stat 06/30/18 08:42 PT Evaluation and Treatment [CONS] Routine - Patient Instructions Diet: Diabetic Diet Activity: Apply Ice, Non Weight Bearing Activity, Other: No range of motion to right shoulder. Okay to move elbow/ wrist. Driving: Do Not Drive Showering/Bathing: May Shower, No Tub Bathing/Swimming Showering/Bathing, Other: Okay to shower over Aquacel dressings. Wound/Incision Care: Keep Operative Site/Wound Site Clean and Dry, Do NOT Change Dressing Notify Provider of: Fever, Increased Pain, Swelling and Redness, Drainage, Nausea and/or Vomiting - Discharge Plan *PRESCRIPTION DRUG MONITORING PROGRAM REVIEWED*: Not Applicable *COPY OF PRESCRIPTION DRUG MONITORING REPORT IN PATIENT VICTORINA: Not Applicable Prescriptions/Med Rec: Nicotine [Habitrol] 14 mg TRDERM Q24H #1 box Home Medications: Home Meds Citalopram Hydrobromide [Celexa] 40 mg PO DAILY 12/26/15 [History] Folic Acid 1 tab PO DAILY@1200 12/26/15 [History] Garlic 1,000 mg PO BEDTIME 12/26/15 [History] Lisinopril 40 mg PO DAILY 12/26/15 [History] Lutein/Min/Vit C/Vit E Acetate [Ocuvite Lutein] 1 tab PO DAILY 12/26/15 [History ] [place]-3/DHA/Epa/Fish Oil [[place]-3 Fish Oil 1,000 MG Sfgl] 1,000 mg PO BID [History] Simvastatin [Zocor] 40 mg PO BEDTIME 12/26/15 [History] Vitamin B Complex 1 tab PO DAILY@1200 12/26/15 [History] traZODone HCl [Trazodone HCl] 150 mg PO BEDTIME 12/26/15 [History] Calcium Carbonate/Vitamin D3 [Calcium 600 + Vit D Tablet] 2 tab PO BID@1200, 2100 09/16/17 [History] Diltiazem HCl [Diltiazem 24Hr ER] 120 mg PO DAILY 09/16/17 [History] Fluticasone Propionate [Flonase] 2 spray NASBOTH DAILY PRN 09/16/17 [History] LORazepam 0.5 mg PO TID PRN 09/16/17 [History] Docusate Sodium 100 mg PO DAILY PRN 11/05/17 [History] Levalbuterol Tartrate [Xopenex Hfa] 2 puff INH ASDIRECTED 11/05/17 [History] Esomeprazole [NexIUM] 40 mg PO ACBREAKFAST 06/30/18 [History] Ibuprofen [Motrin] 800 mg PO BID@1200,2100 06/30/18 [History] Acetaminophen/HYDROcodone [Hall 325-5 MG] 1 - 2 tab PO Q4H PRN tablet [Rx] Nicotine [Habitrol] 14 mg TRDERM Q24H #1 box 07/02/18 [Rx] Oxygen Therapy Mode: Room Air Patient Handouts: Acetaminophen; Hydrocodone tablets or capsules, Nicotine skin patches, Intramedullary Nailing of Humeral Shaft Fracture Referrals: Naga Lewis MD [Physician] - 07/13/18 10:15 am Clauida Perez PA [Physician Helicopter Engineer] - 07/16/18 9:00 am (If you have questions or concerns prior to your follow-up appointment, please call the clinic. ) - Discharge Summary/Plan Comment DC Time >30 min.: No Discharge Summary/Plan Comment: Discharge Diagnoses: Fall Fx L humerus, S/P fixation HTN DM Type 2, diet controlled Depression Alcohol abuse Kendra was admitted post fall with fracture to L humerus. Initially conservative therapy was tried, but brace was unable to align fracture. Dr Hill took her to the OR yesterday. Today she is doing well pain is much better controlled with Hall. BP initially was a little low this morning, NS bolus 500 given, BP elevated back to 120/80s. She denies dizziness or chest pain. She is very eager to go home. She was educated regarding pain medication and alcohol. She should refrain from alcohol use while taking pain medications. She verbalized understanding. She is to followup with Ortho as scheduled and she will be scheduled to see Dr Lewis, PCP as well. - General Info Date of Service: 07/02/18 Admission Dx/Problem (Free Text: Admission Diagnosis/Problem Admission Diagnosis/Problem Fracture of humerus Subjective Update: Sitting up in the chair feeling good. Reports pain is much more controlled. Denies chest pain or SOB. No dizziness. Requesting to be discharged. Functional Status: Reports: Pain Controlled, Tolerating Diet, Ambulating, Urinating - Review of Systems General: Reports: No Symptoms. Denies: Fever, Weakness, Fatigue HEENT: Reports: No Symptoms Pulmonary: Reports: No Symptoms. Denies: Shortness of Breath Cardiovascular: Reports: No Symptoms. Denies: Chest Pain Gastrointestinal: Reports: No Symptoms. Denies: Abdominal Pain, Nausea, Vomiting Genitourinary: Reports: No Symptoms Musculoskeletal: Reports: Arm Pain (much improved after surgery) Skin: Reports: No Symptoms Neurological: Reports: No Symptoms Psychiatric: Reports: No Symptoms - Patient Data Vitals - Most Recent: Last Vital Signs Temp 97.8 F 07/02/18 11:36 Pulse 58 L 07/02/18 11:36 Resp 22 H 07/02/18 11:36 BP 124/52 L 07/02/18 11:36 Pulse Ox 92 L 07/02/18 11:36 Weight - Most Recent: 62 kg I&O - Last 24 hours: Intake & Output 07/01/18 07/02/18 07/02/18 22:59 06:59 14:59 Intake Total 1650 1050 Output Total 1350 880 Balance 300 170 Lab Results - Last 24 hrs: Laboratory Results - last 24 hr 07/01/18 07/02/18 07/02/18 Range/Units 11:54 05:14 05:14 WBC 8.22 (4.0-11.0) K/uL RBC 4.06 L (4.30-5.90) M/uL Hgb 12.8 (12.0-16.0) g/dL Hct 36.9 (36.0-46.0) % MCV 90.9 (80.0-98.0) fL MCH 31.5 (27.0-32.0) pg MCHC 34.7 (31.0-37.0) g/dL RDW Std Deviation 38.9 (28.0-62.0) fl RDW Coeff of Miguelito 12 (11.0-15.0) % Plt Count 154 (150-400) K/uL MPV 10.10 (7.40-12.00) fL Neut % (Auto) 83.5 H (48.0-80.0) % Lymph % (Auto) 8.6 L (16.0-40.0) % [place] % (Auto) 7.9 (0.0-15.0) % Eos % (Auto) 0.0 (0.0-7.0) % Baso % (Auto) 0.0 (0.0-1.5) % Neut # (Auto) 6.9 H (1.4-5.7) K/uL Lymph # (Auto) 0.7 (0.6-2.4) K/uL [place] # (Auto) 0.7 (0.0-0.8) K/uL Eos # (Auto) 0.0 (0.0-0.7) K/uL Baso # (Auto) 0.0 (0.0-0.1) K/uL Nucleated RBC % 0.0 /100WBC Nucleated RBCs # 0 K/uL Sodium 135 L (136-145) mmol/L Potassium 4.7 (3.5-5.1) mmol/L Chloride 102 (98-107) mmol/L Carbon Dioxide 28.3 (21.0-32.0) mmol/L BUN 7 (7.0-18.0) mg/dL Creatinine 0.8 (0.6-1.0) mg/dL Est Cr Clr Drug Dosing 50.27 mL/min Estimated GFR (MDRD) > 60.0 ml/min Glucose 193 H (74-106) mg/dL POC Glucose 117 H (60-110) mg/dL Calcium 9.0 (8.5-10.1) mg/dL 07/02/18 Range/Units 06:31 WBC (4.0-11.0) K/uL RBC (4.30-5.90) M/uL Hgb (12.0-16.0) g/dL Hct (36.0-46.0) % MCV (80.0-98.0) fL MCH (27.0-32.0) pg MCHC (31.0-37.0) g/dL RDW Std Deviation (28.0-62.0) fl RDW Coeff of Miguelito (11.0-15.0) % Plt Count (150-400) K/uL MPV (7.40-12.00) fL Neut % (Auto) (48.0-80.0) % Lymph % (Auto) (16.0-40.0) % [place] % (Auto) (0.0-15.0) % Eos % (Auto) (0.0-7.0) % Baso % (Auto) (0.0-1.5) % Neut # (Auto) (1.4-5.7) K/uL Lymph # (Auto) (0.6-2.4) K/uL [place] # (Auto) (0.0-0.8) K/uL Eos # (Auto) (0.0-0.7) K/uL Baso # (Auto) (0.0-0.1) K/uL Nucleated RBC % /100WBC Nucleated RBCs # K/uL Sodium (136-145) mmol/L Potassium (3.5-5.1) mmol/L Chloride (98-107) mmol/L Carbon Dioxide (21.0-32.0) mmol/L BUN (7.0-18.0) mg/dL Creatinine (0.6-1.0) mg/dL Est Cr Clr Drug Dosing mL/min Estimated GFR (MDRD) ml/min Glucose (74-106) mg/dL POC Glucose 207 H (60-110) mg/dL Calcium (8.5-10.1) mg/dL Med Orders - Current: Current Medications Hydrocodone Bitart/Acetaminophen (Hall 325-5 Mg) 1 - 2 tab PO Q4H PRN PRN Reason: Pain Last Admin: 07/02/18 09:33 Dose: 2 tab Calcium Carbonate (Caltrate 600+D 1500 Mg-400 Units) 1 tab PO BID@1200,2100 [facility] Last Admin: 07/01/18 21:15 Dose: 1 tab Citalopram Hydrobromide (Celexa) 40 mg PO DAILY [facility] Last Admin: 07/02/18 08:37 Dose: 40 mg Diltiazem HCl (Cardizem Cd) 120 mg PO DAILY [facility] Last Admin: 07/02/18 08:48 Dose: Not Given Docusate Sodium (Colace) 100 mg PO ASDIRECTED PRN PRN Reason: Constipation Fluticasone Propionate (Flonase) 16 gm NASBOTH DAILY PRN PRN Reason: Allergies Folic Acid (Folic Acid) 1 mg PO DAILY [facility] Last Admin: 07/02/18 08:40 Dose: 1 mg Sodium Chloride (Normal Saline) 1,000 mls @ 50 mls/hr IV ASDIRECTED [facility] Last Admin: 07/02/18 02:38 Dose: 50 mls/hr Clindamycin Phosphate 600 mg/ (Premix) 50 mls @ 100 mls/hr IV ONCALL [facility] Last Admin: 07/01/18 23:57 Dose: 100 mls/hr Insulin Aspart (Novolog) 0 unit SUBCUT TIDAC [facility]; Protocol Last Admin: 07/02/18 07:38 Dose: 2 units Lisinopril (Prinivil) 40 mg PO DAILY [facility] Last Admin: 07/02/18 09:39 Dose: Not Given Lorazepam (Ativan) 0.5 mg PO TID PRN PRN Reason: Anxiety Morphine Sulfate (Morphine) 2 mg IVPUSH Q2H PRN PRN Reason: Pain Last Admin: 07/01/18 08:21 Dose: 2 mg Nicotine (Habitrol) 14 mg TRDERM Q24H [facility] Last Admin: 07/01/18 11:29 Dose: 14 mg Omeprazole (Omeprazole) 20 mg PO ACBREAKFAST [facility] Last Admin: 02/14/19 06:43 Dose: 20 mg Xopenex Hfa 2 each INH Q4H PRN PRN Reason: SHORTNESS OF BREATH Simvastatin (Zocor) 40 mg PO BEDTIME [facility] Last Admin: 07/01/18 21:15 Dose: 40 mg Sodium Chloride (Saline Flush) 10 ml FLUSH ASDIRECTED PRN PRN Reason: Keep Vein Open Sodium Chloride (Saline Flush) 2.5 ml FLUSH ASDIRECTED PRN PRN Reason: Keep Vein Open Thiamine HCl (Vitamin B-1) 100 mg PO Q24H [facility] Last Admin: 07/02/18 08:39 Dose: 100 mg Trazodone HCl (Trazodone) 150 mg PO BEDTIME [facility] Last Admin: 07/01/18 21:14 Dose: 150 mg Discontinued Medications Citalopram Hydrobromide (Celexa) 40 mg PO .STK-MED ONE Stop: 06/30/18 09:01 Citalopram Hydrobromide (Celexa) 40 mg PO .STK-MED ONE Stop: 07/01/18 09:01 Dexamethasone (Dexamethasone) Confirm Administered Dose 20 mg .ROUTE .STK-MED ONE Stop: 07/01/18 15:37 Diltiazem HCl (Cardizem Cd) 120 mg PO DAILY [facility] Fentanyl (Sublimaze) Confirm Administered Dose 250 mcg .ROUTE .STK-MED ONE Stop: 07/01/18 14:44 Glycopyrrolate (Robinul) Confirm Administered Dose 0.4 mg .ROUTE .STK-MED ONE Stop: 07/01/18 16:41 Sodium Chloride (Normal Saline) 1,000 mls @ 999 mls/hr IV STAT ONE Stop: 06/30/18 00:44 Last Admin: 06/30/18 00:07 Dose: 999 mls/hr Sodium Chloride (Normal Saline) 1,000 mls @ 125 mls/hr IV ASDIRECTED [facility] Last Admin: 06/30/18 10:12 Dose: 125 mls/hr Clindamycin Phosphate 600 mg/ (Premix) 50 mls @ 92.593 mls/hr IV ONETIME ONE Stop: 06/30/18 18:47 Last Admin: 06/30/18 18:49 Dose: 92.593 mls/hr Lidocaine HCl (Xylocaine-Mpf 1%) Confirm Administered Dose 5 mls @ as directed .ROUTE .STK-MED ONE Stop: 07/01/18 14:44 Clindamycin Phosphate 600 mg/ (Premix) 50 mls @ 100 mls/hr IV Q8H [facility] Stop: 07/02/18 08:29 Last Admin: 07/02/18 08:50 Dose: 100 mls/hr Sodium Chloride (Normal Saline) 500 mls @ 999 mls/hr IV .BOLUS [facility] Last Admin: 07/02/18 09:38 Dose: 999 mls/hr Ketorolac Tromethamine (Toradol) 30 mg IVPUSH ONETIME ONE Stop: 06/29/18 23:45 Last Admin: 06/30/18 00:07 Dose: 30 mg Ketorolac Tromethamine (Toradol) Confirm Administered Dose 30 mg .ROUTE .STK- MED ONE Stop: 07/01/18 15:37 Lisinopril (Prinivil) 40 mg PO DAILY [facility] Metoclopramide HCl (Reglan) Confirm Administered Dose 10 mg .ROUTE .STK-MED ONE Stop: 07/01/18 15:37 Midazolam HCl (Versed 1 Mg/Ml) Confirm Administered Dose 2 mg .ROUTE .STK-MED ONE Stop: 07/01/18 14:44 Morphine Sulfate (Morphine) 2 mg IVPUSH ONETIME ONE Stop: 06/30/18 01:10 Last Admin: 06/30/18 01:13 Dose: 2 mg Neostigmine Methylsulfate (Neostigmine) Confirm Administered Dose 5 mg .ROUTE .STK-MED ONE Stop: 07/01/18 16:42 Ondansetron HCl (Zofran) 4 mg IVPUSH ONETIME ONE Stop: 06/29/18 23:45 Last Admin: 06/30/18 00:06 Dose: 4 mg Ondansetron HCl (Zofran) Confirm Administered Dose 8 mg .ROUTE .STK-MED ONE Stop: 07/01/18 15:37 Propofol (Diprivan 20 Ml) Confirm Administered Dose 200 mg .ROUTE .STK-MED ONE Stop: 07/01/18 14:44 - Exam General: Reports: Alert, Oriented, Cooperative, No Acute Distress Neck: Reports: Supple Lungs: Reports: Clear to Auscultation, Normal Respiratory Effort Cardiovascular: Reports: Regular Rate, Regular Rhythm GI/Abdominal Exam: Normal Bowel Sounds, Soft, Non-Tender Skin: Reports: Warm, Dry Wound/Incisions: Reports: Dressing Dry and Intact Neurological: Reports: No New Focal Deficit, Sensation Intact (CMS intact to L arm) Psy/Mental Status: Reports: Alert, Normal Affect, Normal Mood
[2018-07-02] MEDS: Nicotine 14 MG/24 Hr Patch TRDERM SCH (12:55)
[2018-07-02] MEDS: Calcium Carbonate/Vitamin D3 1500 MG-400 Units Tab PO SCH (12:57)
--- NOTE | 2018-07-06 10:24 | CR ---
EXAMINATION: Left humerus HISTORY: Fracture COMPARISON: 06/30/2018 TECHNIQUE: Total of 11 fluoroscopic images provided FINDINGS/IMPRESSION: Operative control films demonstrate placement of an intramedullary tessie traversing a proximal humeral fracture.
== END 2018-07-02 15:30 | disposition home or self-care (01) ==
LOC: MW.ED 23:24 → MW.MS 06-30 01:17
PROVIDERS: ADMIT Internal Medicine; ATTEND Internal Medicine
DX: S42.202A Unspecified fracture of upper end of left humerus, initial encounter for closed fracture (principal); E11.9 Type 2 diabetes mellitus without complications; I10 Essential (primary) hypertension; J44.9 Chronic obstructive pulmonary disease, unspecified; F41.8 Other specified anxiety disorders; Z78.9 Other specified health status; Z79.899 Other long term (current) drug therapy; W19.XXXA Unspecified fall, initial encounter; Z88.1 Allergy status to other antibiotic agents; Z88.0 Allergy status to penicillin; Z91.041 Radiographic dye allergy status; F17.210 Nicotine dependence, cigarettes, uncomplicated
CPT/HCPCS: 23615; 36415; 70450; 71045; 73030; 73060; 80048; 80053; 81003; 82962; 85025; 85610; 93005; 96361; 96374; 96375; 97161; 97530; 99285; A9270; G0480; J1100; J1815; J1885; J2250; J2270; J2405; J2704; J2765; J3010; J3490; J7040; 96376; C1713; C1776; G0378; J2001

== ENCOUNTER 2018-07-03 20:49 | Emergency (ER) | payer MEDICARE, OTHER ==
--- NOTE | 2018-07-03 21:12 | EDM.PDOC ---
ED HPI GENERAL MEDICAL PROBLEM - General Chief Complaint: General Stated Complaint: ARM AND LEG ON L SIDE SWELLED Time Seen by Provider: 07/03/18 20:55 - History of Present Illness INITIAL COMMENTS - FREE TEXT/NARRATIVE: HISTORY AND PHYSICAL: History of present illness: Patient's a 72-year-old white female with recent left humerus surgery for humerus fracture who presents now with concern of lower extremity edema right greater than left she denies history of CHF she does not describe her edema is particularly painful and has noticed that over the last several days. She denies history of DVT or PE Review of systems: As per history of present illness and below otherwise all systems reviewed and negative. Past medical history: As per history of present illness and as reviewed below otherwise noncontributory. Surgical history: As per history of present illness and as reviewed below otherwise noncontributory. Social history: No reported history of drug or alcohol abuse. Family history: As per history of present illness and as reviewed below otherwise noncontributory. Physical exam: HEENT: Atraumatic, normocephalic, pupils reactive, negative for conjunctival pallor or scleral icterus, mucous membranes moist, throat clear, neck supple, nontender, trachea midline. Lungs: Clear to auscultation, breath sounds equal bilaterally, chest nontender. Heart: S1S2, regular, negative for clicks, rubs, or JVD. Abdomen: Soft, nondistended, nontender. Negative for masses or hepatosplenomegaly. Negative for costovertebral tenderness. Pelvis: Stable nontender. Genitourinary: Deferred. Rectal: Deferred. Extremities: negative for cords or calf pain. Patient does have 1-2+ pretibial edema on the right and trace pretibial edema on the left neurovascular exam is unremarkable Neuro: Awake, alert, oriented. Cranial nerves II through XII unremarkable. Cerebellum unremarkable. Motor and sensory unremarkable throughout. Exam nonfocal. Diagnostics: CBC CMP troponin PT/INR BNP chest x-ray EKG lower extremity ultrasound bilateral Therapeutics: None Impression: #1 peripheral edema etiology to be determined Definitive disposition and diagnosis as appropriate pending reevaluation and review of above. Left Arm Pain Score (Numeric/FACES): 6 - Related Data Allergies Allergy/AdvReac Type Severity Reaction Status Date / Time cephalexin [From Keflex] Allergy Itching Verified 02/12/19 03:25 Iodinated Contrast- Oral and Allergy Itching Verified 06/30/18 03:25 IV Dye [Iodinated Contrast Media - IV Dye] Penicillins Allergy Edema Verified 06/30/18 03:25 Home Meds: Home Meds Citalopram Hydrobromide [Celexa] 40 mg PO DAILY 12/26/15 [History] Folic Acid 1 tab PO DAILY@1200 12/26/15 [History] Garlic 1,000 mg PO BEDTIME 12/26/15 [History] Lisinopril 40 mg PO DAILY 12/26/15 [History] Lutein/Min/Vit C/Vit E Acetate [Ocuvite Lutein] 1 tab PO DAILY 12/26/15 [History ] [place]-3/DHA/Epa/Fish Oil [[place]-3 Fish Oil 1,000 MG Sfgl] 1,000 mg PO BID [History] Simvastatin [Zocor] 40 mg PO BEDTIME 12/26/15 [History] Vitamin B Complex 1 tab PO DAILY@1200 12/26/15 [History] traZODone HCl [Trazodone HCl] 150 mg PO BEDTIME 12/26/15 [History] Calcium Carbonate/Vitamin D3 [Calcium 600 + Vit D Tablet] 2 tab PO BID@1200, 2100 09/16/17 [History] Diltiazem HCl [Diltiazem 24Hr ER] 120 mg PO DAILY 09/16/17 [History] Fluticasone Propionate [Flonase] 2 spray NASBOTH DAILY PRN 09/16/17 [History] LORazepam 0.5 mg PO TID PRN 09/16/17 [History] Docusate Sodium 100 mg PO DAILY PRN 11/05/17 [History] Levalbuterol Tartrate [Xopenex Hfa] 2 puff INH ASDIRECTED 11/05/17 [History] Esomeprazole [NexIUM] 40 mg PO ACBREAKFAST 06/30/18 [History] Ibuprofen [Motrin] 800 mg PO BID@1200,2100 06/30/18 [History] Acetaminophen/HYDROcodone [[place] 325-5 MG] 1 - 2 tab PO Q4H PRN tablet [Rx] Nicotine [Habitrol] 14 mg TRDERM Q24H #1 box 07/02/18 [Rx] Past Medical History HEENT History: Reports: Hard of Hearing, Impaired Vision, Other (See Below) Other HEENT History: wears glasses, top denture, lower partial, ayan hearing aids Cardiovascular History: Reports: Arrhythmia, High Cholesterol, Hypertension Respiratory History: Reports: COPD Gastrointestinal History: Reports: Diverticulosis, GERD Other Gastrointestinal History: diverticulitis Genitourinary History: Reports: None 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: Musculoskeletal History: Reports: Arthritis, Other (See Below) Other Musculoskeletal History: (L) humerus fx Neurological History: Reports: Other (See Below) Other Neuro History: hx head injury Psychiatric History: Reports: Anxiety Endocrine/Metabolic History: Reports: Diabetes, Type II Other Endocrine/Metabolic History: diet controlled type II diabetes Hematologic History: Reports: None Immunologic History: Reports: None Oncologic (Cancer) History: Reports: None Dermatologic History: Reports: Other (See Below) Other Dermatologic History: rash to back - Past Surgical History Head Surgeries/Procedures: Reports: None Cardiovascular Surgical History: Reports: Cardiac Ablation GI Surgical History: Reports: Colonoscopy Other GI Surgeries/Procedures: hx rectal fistulectomy Female Surgical History: Reports: Hysterectomy, Other (See Below) Other Female Surgeries/Procedures: excision of chula anal fistula, axillary lumpectomy Social & Family History - Family History Family Medical History: Noncontributory - Tobacco Use Smoking Status *Q: Current Every Day Smoker Years of Tobacco use: 55 Packs/Tins Daily: 1.5 - Caffeine Use Caffeine Use: Reports: Coffee, Soda - Recreational Drug Use Recreational Drug Use: No - Living Situation & Occupation Living situation: Reports: with Family (lives with sister) Occupation: Retired ED ROS GENERAL - Review of Systems Review Of Systems: ROS reveals no pertinent complaints other than HPI. ED EXAM, GENERAL - Physical Exam Exam: See Below (See dictation) Course - Vital Signs Last Recorded V/S: Last Vital Signs Temp 37.4 C 07/03/18 22:53 Pulse 50 L 07/03/18 22:53 Resp 15 07/03/18 22:53 BP 122/52 L 07/03/18 23:00 Pulse Ox 93 L 07/03/18 22:53 - Orders/Labs/Meds Orders: Active Orders 24 hr Category Date Time Status EKG Documentation Completion [RC] STAT Care 07/03/18 21:01 Active Labs: Laboratory Tests 02/07/03/18 07/03/18 Range/Units 21:23 21:23 21:23 WBC 7.24 (4.0-11.0) K/uL RBC 3.51 L (4.30-5.90) M/uL Hgb 11.2 L (12.0-16.0) g/dL Hct 31.4 L (36.0-46.0) % MCV 89.5 (80.0-98.0) fL MCH 31.9 (27.0-32.0) pg MCHC 35.7 (31.0-37.0) g/dL RDW Std Deviation 38.8 (28.0-62.0) fl RDW Coeff of Miguelito 12 (11.0-15.0) % Plt Count 170 (150-400) K/uL MPV 9.70 (7.40-12.00) fL Neut % (Auto) 65.2 (48.0-80.0) % Lymph % (Auto) 25.1 (16.0-40.0) % [place] % (Auto) 8.3 (0.0-15.0) % Eos % (Auto) 1.1 (0.0-7.0) % Baso % (Auto) 0.3 (0.0-1.5) % Neut # (Auto) 4.7 (1.4-5.7) K/uL Lymph # (Auto) 1.8 (0.6-2.4) K/uL [place] # (Auto) 0.6 (0.0-0.8) K/uL Eos # (Auto) 0.1 (0.0-0.7) K/uL Baso # (Auto) 0.0 (0.0-0.1) K/uL Nucleated RBC % 0.0 /100WBC Nucleated RBCs # 0 K/uL INR 1.02 Sodium 137 (136-145) mmol/L Potassium 3.6 (3.5-5.1) mmol/L Chloride 100 (98-107) mmol/L Carbon Dioxide 26.9 (21.0-32.0) mmol/L BUN 7 (7.0-18.0) mg/dL Creatinine 0.7 (0.6-1.0) mg/dL Est Cr Clr Drug Dosing TNP Estimated GFR (MDRD) > 60.0 ml/min Glucose 116 H (74-106) mg/dL Calcium 8.9 (8.5-10.1) mg/dL Total Bilirubin 0.6 (0.2-1.0) mg/dL AST 23 (15-37) IU/L ALT 21 (14-63) IU/L Alkaline Phosphatase 57 (46-116) U/L Troponin I < 0.050 (0.000-0.056) ng/mL B-Natriuretic Peptide (<100) PG/ML Total Protein 6.2 L (6.4-8.2) g/dL Albumin 3.1 L (3.4-5.0) g/dL Globulin 3.1 (2.6-4.0) g/dL Albumin/Globulin Ratio 1.0 (0.9-1.6) 07/03/18 Range/Units 21:23 WBC (4.0-11.0) K/uL RBC (4.30-5.90) M/uL Hgb (12.0-16.0) g/dL Hct (36.0-46.0) % MCV (80.0-98.0) fL MCH (27.0-32.0) pg MCHC (31.0-37.0) g/dL RDW Std Deviation (28.0-62.0) fl RDW Coeff of Miguelito (11.0-15.0) % Plt Count (150-400) K/uL MPV (7.40-12.00) fL Neut % (Auto) (48.0-80.0) % Lymph % (Auto) (16.0-40.0) % [place] % (Auto) (0.0-15.0) % Eos % (Auto) (0.0-7.0) % Baso % (Auto) (0.0-1.5) % Neut # (Auto) (1.4-5.7) K/uL Lymph # (Auto) (0.6-2.4) K/uL [place] # (Auto) (0.0-0.8) K/uL Eos # (Auto) (0.0-0.7) K/uL Baso # (Auto) (0.0-0.1) K/uL Nucleated RBC % /100WBC Nucleated RBCs # K/uL INR Sodium (136-145) mmol/L Potassium (3.5-5.1) mmol/L Chloride (98-107) mmol/L Carbon Dioxide (21.0-32.0) mmol/L BUN (7.0-18.0) mg/dL Creatinine (0.6-1.0) mg/dL Est Cr Clr Drug Dosing Estimated GFR (MDRD) ml/min Glucose (74-106) mg/dL Calcium (8.5-10.1) mg/dL Total Bilirubin (0.2-1.0) mg/dL AST (15-37) IU/L ALT (14-63) IU/L Alkaline Phosphatase (46-116) U/L Troponin I (0.000-0.056) ng/mL B-Natriuretic Peptide 137 H (<100) PG/ML Total Protein (6.4-8.2) g/dL Albumin (3.4-5.0) g/dL Globulin (2.6-4.0) g/dL Albumin/Globulin Ratio (0.9-1.6) Departure - Departure Time of Disposition: 05:21 Disposition: Home, Self-Care 01 Clinical Impression: Encounter for medical screening examination, Peripheral edema - Discharge Information Instructions: Medical Screening Exam, Peripheral Edema Referrals: Naga Lewis MD [Primary Care Provider] - Forms: ED Department Discharge - My Orders Last 24 Hours: My Active Orders 07/03/18 21:01 EKG Documentation Completion [RC] STAT - Assessment/Plan Last 24 Hours: My Active Orders 07/03/18 21:01 EKG Documentation Completion [RC] STAT
--- NOTE | 2018-07-03 21:48 | CR ---
INDICATION: Bilateral lower extremity and left upper extremity swelling. TECHNIQUE: Chest 1 views COMPARISON: Chest x-ray 06/30/2018 FINDINGS: Cardiovascular and mediastinum: Normal heart size. Atherosclerosis. Lungs and pleural spaces: Lungs are clear. No sign of infiltrate or mass. No sign of pleural effusion. No pneumothorax. Bones and soft tissues: Interval placement of an intramedullary tessie within the left proximal humerus, partially included although bridging the previously noted humeral fracture. Skin paul partially included. IMPRESSION: No acute cardiopulmonary abnormality. Dictated by López Connelly MD @ Jul 03 2018 9:45PM Signed by Dr. López Connelly @ Jul 03 2018 9:46PM
[2018-07-03 21:55] LABS: CHLORIDE,CL 100 mmol/L (98-107); SODIUM,NA 137 mmol/L (136-145)
[2018-07-03 23:01] VITALS: BP 122/52
--- NOTE | 2018-07-03 23:42 | US ---
INDICATION: Bilateral leg swelling beginning today. Status post left humeral ORIF. COMPARISON: None available. FINDINGS: Ultrasound of the venous drainage of the right lower extremity shows no evidence of deep venous thrombosis. There is normal antegrade flow from the posterior tibial and popliteal veins superiorly through the common femoral vein. There is normal augmentation and compressibility of the veins. IMPRESSION: No evidence of deep venous thrombosis on ultrasound examination of the right lower extremity. Dictated by Ousmane Kwon MD @ Jul 03 2018 11:38PM Signed by Dr. Ousmane Kwon @ Jul 03 2018 11:41PM
--- NOTE | 2018-07-03 23:46 | US ---
INDICATION: Lower extremity swelling TECHNIQUE: Ultrasound venous duplex lower left extremity. Compression venous exam was performed using gallagher-scale, color Doppler, and spectral Doppler analysis. COMPARISON: None. FINDINGS: Sonographic imaging demonstrates the left common femoral, deep femoral, superficial femoral, popliteal, posterior tibial and greater saphenous veins to be fully compressible with normal color Doppler blood flow. IMPRESSION: Normal left lower extremity venous ultrasound, no sign of deep venous thrombosis. Dictated by López Connelly MD @ Jul 03 2018 11:43PM Signed by Dr. López Connelly @ Jul 03 2018 11:45PM
== END 2018-07-04 00:40 | disposition home or self-care (01) ==
LOC: MW.ED 20:49
DX: R60.0 Localized edema (principal); E78.00 Pure hypercholesterolemia, unspecified; I10 Essential (primary) hypertension; J44.9 Chronic obstructive pulmonary disease, unspecified; E11.9 Type 2 diabetes mellitus without complications; F41.9 Anxiety disorder, unspecified; F17.210 Nicotine dependence, cigarettes, uncomplicated; Z88.8 Allergy status to other drugs, medicaments and biological substances; Z79.899 Other long term (current) drug therapy
CPT/HCPCS: 36415; 71045; 71045-26; 80053; 83880; 84484; 85025; 85610; 93005; 93971-26-LT; 93971-26-RT; 93971-LT; 93971-RT; 99283; 99284-25

== ENCOUNTER 2018-11-09 23:23 | Emergency (ER) | payer MEDICARE, OTHER ==
--- NOTE | 2018-11-09 23:46 | EDM.PDOC ---
ED HPI GENERAL MEDICAL PROBLEM - General Chief Complaint: General Stated Complaint: MEDICAL CLEARANCE Time Seen by Provider: 11/09/18 23:44 - History of Present Illness INITIAL COMMENTS - FREE TEXT/NARRATIVE: HISTORY AND PHYSICAL: History of present illness: Patient 73-year-old female presenting custody along [facility] for medical clearance patient has no complaints Review of systems: As per history of present illness and below otherwise all systems reviewed and negative. Past medical history: As per history of present illness and as reviewed below otherwise noncontributory. Surgical history: As per history of present illness and as reviewed below otherwise noncontributory. Social history: No reported history of drug or alcohol abuse. Family history: As per history of present illness and as reviewed below otherwise noncontributory. Physical exam: HEENT: Atraumatic, normocephalic, pupils reactive, negative for conjunctival pallor or scleral icterus, mucous membranes moist, throat clear, neck supple, nontender, trachea midline. Lungs: Clear to auscultation, breath sounds equal bilaterally, chest nontender. Heart: S1S2, regular, negative for clicks, rubs, or JVD. Abdomen: Soft, nondistended, nontender. Negative for masses or hepatosplenomegaly. Negative for costovertebral tenderness. Pelvis: Stable nontender. Genitourinary: Deferred. Rectal: Deferred. Extremities: Atraumatic, negative for cords or calf pain. Neurovascular unremarkable. Neuro: Awake, alert, oriented. Cranial nerves II through XII unremarkable. Cerebellum unremarkable. Motor and sensory unremarkable throughout. Exam nonfocal. Diagnostics: None Therapeutics: None Impression: #1 medical clearance for incarceration Definitive disposition and diagnosis as appropriate pending reevaluation and review of above. Back Pain Score (Numeric/FACES): 3 - Related Data Allergies Allergy/AdvReac Type Severity Reaction Status Date / Time cephalexin [From Keflex] Allergy Itching Verified 11/09/18 23:34 Iodinated Contrast- Oral and Allergy Itching Verified 11/09/18 23:34 IV Dye [Iodinated Contrast Media - IV Dye] Penicillins Allergy Edema Verified 11/09/18 23:34 Home Meds: Home Meds Citalopram Hydrobromide [Celexa] 40 mg PO DAILY 12/26/15 [History] Folic Acid 1 tab PO DAILY@1200 12/26/15 [History] Garlic 1,000 mg PO BEDTIME 12/26/15 [History] Lisinopril 40 mg PO DAILY 12/26/15 [History] Lutein/Min/Vit C/Vit E Acetate [Ocuvite Lutein] 1 tab PO DAILY 12/26/15 [History ] [place]-3/DHA/Epa/Fish Oil [[place]-3 Fish Oil 1,000 MG Sfgl] 1,000 mg PO BID [History] Simvastatin [Zocor] 40 mg PO BEDTIME 12/26/15 [History] Vitamin B Complex 1 tab PO DAILY@1200 12/26/15 [History] traZODone HCl [Trazodone HCl] 150 mg PO BEDTIME 12/26/15 [History] Calcium Carbonate/Vitamin D3 [[place]cium 600 + Vit D Tablet] 2 tab PO BID@1200, 2100 09/16/17 [History] Diltiazem HCl [Diltiazem 24Hr ER] 120 mg PO DAILY 09/16/17 [History] Fluticasone Propionate [Flonase] 2 spray NASBOTH DAILY PRN 09/16/17 [History] LORazepam 0.5 mg PO TID PRN 09/16/17 [History] Docusate Sodium 100 mg PO DAILY PRN 11/05/17 [History] Levalbuterol Tartrate [Xopenex Hfa] 2 puff INH ASDIRECTED 11/05/17 [History] Esomeprazole [NexIUM] 40 mg PO ACBREAKFAST 06/30/18 [History] Ibuprofen [Motrin] 800 mg PO BID@1200,2100 06/30/18 [History] Acetaminophen/HYDROcodone [[place] 325-5 MG] 1 - 2 tab PO Q4H PRN tablet [Rx] Nicotine [Habitrol] 14 mg TRDERM Q24H #1 box 07/02/18 [Rx] Past Medical History HEENT History: Reports: Hard of Hearing, Impaired Vision, Other (See Below) Other HEENT History: wears glasses, top denture, lower partial, ayan hearing aids Cardiovascular History: Reports: Arrhythmia, High Cholesterol, Hypertension Respiratory History: Reports: COPD Gastrointestinal History: Reports: Diverticulosis, GERD Other Gastrointestinal History: diverticulitis Genitourinary History: Reports: None 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: Musculoskeletal History: Reports: Arthritis, Other (See Below) Other Musculoskeletal History: (L) humerus fx Neurological History: Reports: Other (See Below) Other Neuro History: hx head injury Psychiatric History: Reports: Anxiety Endocrine/Metabolic History: Reports: Diabetes, Type II Other Endocrine/Metabolic History: diet controlled type II diabetes Hematologic History: Reports: None Immunologic History: Reports: None Oncologic (Cancer) History: Reports: None Dermatologic History: Reports: Other (See Below) Other Dermatologic History: rash to back - Past Surgical History Head Surgeries/Procedures: Reports: None HEENT Surgical History: Reports: None Cardiovascular Surgical History: Reports: Cardiac Ablation Respiratory Surgical History: Reports: None GI Surgical History: Reports: Colonoscopy Other GI Surgeries/Procedures: hx rectal fistulectomy Female Surgical History: Reports: Hysterectomy, Other (See Below) Other Female Surgeries/Procedures: excision of chula anal fistula, axillary lumpectomy Musculoskeletal Surgical History: Reports: Other (See Below) Other Musculoskeletal Surgeries/Procedures:: closed reduction with internal fixation of left humerus Social & Family History - Family History Family Medical History: Noncontributory - Tobacco Use Smoking Status *Q: Current Every Day Smoker Years of Tobacco use: 55 Packs/Tins Daily: 1.5 - Caffeine Use Caffeine Use: Reports: Coffee, Soda - Recreational Drug Use Recreational Drug Use: No - Living Situation & Occupation Living situation: Reports: with Family (lives with sister) Occupation: Retired ED ROS GENERAL - Review of Systems Review Of Systems: ROS reveals no pertinent complaints other than HPI. ED EXAM, GENERAL - Physical Exam Exam: See Below (See dictation) Course - Vital Signs Last Recorded V/S: Last Vital Signs Temp 35.9 C 11/09/18 23:25 Pulse 47 L 11/09/18 23:25 Resp 20 11/09/18 23:25 BP 137/56 L 11/09/18 23:25 Pulse Ox 98 11/09/18 23:25 - Orders/Labs/Meds Labs: Laboratory Tests 11/09/18 Range/Units 23:34 POC Glucose 112 H (60-110) mg/dL Departure - Departure Time of Disposition: 23:45 Disposition: Home, Self-Care 01 Condition: Good Clinical Impression: Medical clearance for incarceration - Discharge Information Referrals: PCP,None [Primary Care Provider] - Additional Instructions: The following information is given to patients seen in the emergency department who are being discharged to home. This information is to outline your options for follow-up care. We provide all patients seen in our emergency department with a follow-up referral. The need for follow-up, as well as the timing and circumstances, are variable depending upon the specifics of your emergency department visit. If you don't have a primary care physician on staff, we will provide you with a referral. We always advise you to contact your personal physician following an emergency department visit to inform them of the circumstance of the visit and for follow-up with them and/or the need for any referrals to a consulting specialist. The emergency department will also refer you to a specialist when appropriate. This referral assures that you have the opportunity for followup care with a specialist. All of these measure are taken in an effort to provide you with optimal care, which includes your followup. Under all circumstances we always encourage you to contact your private physician who remains a resource for coordinating your care. When calling for followup care, please make the office aware that this follow-up is from your recent emergency room visit. If for any reason you are refused follow-up, please contact the [facility] emergency department at and asked to speak to the emergency department charge nurse. Follow-up primary medical doctor as needed as discussed return as needed as discussed
[2018-11-10 00:24] VITALS: BP 113/48
== END 2018-11-09 23:51 | disposition home or self-care (01) ==
LOC: MW.ED 23:23
DX: Z02.89 Encounter for other administrative examinations (principal); K21.9 Gastro-esophageal reflux disease without esophagitis; J44.9 Chronic obstructive pulmonary disease, unspecified; F41.9 Anxiety disorder, unspecified; E11.9 Type 2 diabetes mellitus without complications; I10 Essential (primary) hypertension; E78.00 Pure hypercholesterolemia, unspecified; F17.210 Nicotine dependence, cigarettes, uncomplicated; Z88.1 Allergy status to other antibiotic agents; Z88.0 Allergy status to penicillin; Z91.041 Radiographic dye allergy status; Z79.899 Other long term (current) drug therapy
CPT/HCPCS: 82962; 99282; 99283

== ENCOUNTER 2019-02-15 09:42 | Emergency (ER) | payer MEDICARE, OTHER ==
--- NOTE | 2019-02-15 10:18 | EDM.PDOC ---
ED HPI GENERAL MEDICAL PROBLEM - General Chief Complaint: Lower Extremity Injury/Pain Stated Complaint: POSSIBLE STROKE Time Seen by Provider: 02/15/19 10:00 Source of Information: Reports: Patient History Limitations: Reports: No Limitations - History of Present Illness INITIAL COMMENTS - FREE TEXT/NARRATIVE: HISTORY AND PHYSICAL: History of present illness: Patient is a 73-year-old female who presents to the emergency room today with complaints of left lower extremity numbness. She states last week on Friday or Friday she was wearing sandals and felt like she was dragging her left foot. This caused her to fall. She denies hitting her head or having any loss of consciousness. Since that time she is concerned about a stroke, as her left lower extremity as she has the intermittent numbness and tingling and feels like it's weaker than the rest of her body. Patient is ambulatory into the emergency room without any difficulty or deficits. She has not noticed any other systemic concerns/complaints or deficits. Patient denies any fever, chills , headache, change in vision, syncope or near syncope. Denies any chest pain, back pain, shortness of breath or cough. Denies any GI or symptoms. Has not noted any blood in urine or stool. Patient has been eating and drinking appropriately. Patient has a past medical history of type 2 diabetes which is diet controlled. She does not take any oral or insulin medications for this. States recent A1C was 5.6. No previous history of diabetic neuropathy. Primary provider is Dr Naga Lewis, sees routinely. Review of systems: As per history of present illness and below otherwise all systems reviewed and negative. Past medical history: As per history of present illness and as reviewed below otherwise noncontributory. Surgical history: As per history of present illness and as reviewed below otherwise noncontributory. Social history: See social history for further information Family history: As per history of present illness and as reviewed below otherwise noncontributory. Physical exam: General: Well-developed and well-nourished 73-year-old female. Alert and oriented. Nontoxic appearing and in no acute distress. Vital signs are stable and have been reviewed by me. HEENT: Atraumatic, normocephalic, pupils equal and reactive bilaterally, negative for conjunctival pallor or scleral icterus, mucous membranes moist, TMs normal bilaterally, throat clear, neck supple, nontender, trachea midline. No drooling or trismus noted. No meningeal signs. No hot potato voice noted. Lungs: Clear to auscultation, breath sounds equal bilaterally, chest nontender. Heart: S1S2, regular rate and rhythm without overt murmur Abdomen: Soft, nondistended, nontender. Negative for masses or hepatosplenomegaly. Negative for costovertebral tenderness. Pelvis: Stable nontender. Genitourinary: Deferred. Rectal: Deferred. C-spine/Back: No pinpoint vertebral tenderness upon palpation. No crepitus, step -offs or obvious deformities. Patient is ambulatory into the emergency room without difficulty or deficit. Able to rock back on heels and walk on toes. Denies any urinary or fecal incontinence. Denies any numbness, tingling or saddle paresthesia. Skin: Intact, warm, dry. No lesions or rashes noted. Extremities: Atraumatic, moves all extremities per self without difficulty or deficits, negative for cords or calf pain. Neurovascular unremarkable. Neuro: Awake, alert, oriented. Cranial nerves II through XII unremarkable. Cerebellum unremarkable. Motor and sensory unremarkable throughout. Exam nonfocal. Notes: GCS 15, NIH 0. Vital signs are stable. My physical exam shows no acute findings. We discussed the risks versus benefits of a head CT at this time, she would like to move forward with this. Head CT shows no acute findings. We discussed the importance of following up with Dr. Naga Lewis for further evaluation. We discussed that she may need to follow-up with neurology. Supportive care measures were reviewed and discussed. Voices understanding and is agreeable to plan of care. Denies any further questions or concerns at this time. Diagnostics: Head CT Therapeutics: None Prescription: None Impression: Paresthesia Plan: 1. Please see Dr Naga Lewis for follow-up. He may want to refer for an MRI if you continue to have symptoms. 2. Return to the ED as needed as discussed. Definitive disposition and diagnosis as appropriate pending reevaluation and review of above. - Related Data Allergies Allergy/AdvReac Type Severity Reaction Status Date / Time cephalexin [From Keflex] Allergy Itching Verified 11/09/18 23:34 Iodinated Contrast Media Allergy Itching Verified 11/09/18 23:34 [Iodinated Contrast Media - IV Dye] Penicillins Allergy Edema Verified 11/09/18 23:34 Home Meds: Home Meds Citalopram Hydrobromide [Celexa] 40 mg PO DAILY 12/26/15 [History] Folic Acid 1 tab PO DAILY@1200 12/26/15 [History] Garlic 1,000 mg PO BEDTIME 12/26/15 [History] Lisinopril 40 mg PO DAILY 12/26/15 [History] Lutein/Min/Vit C/Vit E Acetate [Ocuvite Lutein] 1 tab PO DAILY 12/26/15 [History ] [place]-3/DHA/Epa/Fish Oil [[place]-3 Fish Oil 1,000 MG Sfgl] 1,000 mg PO BID [History] Simvastatin [Zocor] 40 mg PO BEDTIME 12/26/15 [History] Vitamin B Complex 1 tab PO DAILY@1200 12/26/15 [History] traZODone HCl [Trazodone HCl] 150 mg PO BEDTIME 12/26/15 [History] Calcium Carbonate/Vitamin D3 [Calcium 600 + Vit D Tablet] 2 tab PO BID@1200, 2100 09/16/17 [History] Diltiazem HCl [Diltiazem 24Hr ER] 120 mg PO DAILY 09/16/17 [History] Fluticasone Propionate [Flonase] 2 spray NASBOTH DAILY PRN 09/16/17 [History] Docusate Sodium 100 mg PO DAILY PRN 11/05/17 [History] Esomeprazole [NexIUM] 40 mg PO ACBREAKFAST 06/30/18 [History] Past Medical History HEENT History: Reports: Hard of Hearing, Impaired Vision, Other (See Below) Other HEENT History: wears glasses, top denture, lower partial, ayan hearing aids Cardiovascular History: Reports: Arrhythmia, High Cholesterol, Hypertension Respiratory History: Reports: COPD Gastrointestinal History: Reports: Diverticulosis, GERD Other Gastrointestinal History: diverticulitis Genitourinary History: Reports: None [employer] History: Reports: Musculoskeletal History: Reports: Arthritis, Other (See Below) Other Musculoskeletal History: (L) humerus fx Neurological History: Reports: Other (See Below) Other Neuro History: hx head injury Psychiatric History: Reports: Anxiety Endocrine/Metabolic History: Reports: Diabetes, Type II Other Endocrine/Metabolic History: diet controlled type II diabetes Hematologic History: Reports: None Immunologic History: Reports: None Oncologic (Cancer) History: Reports: None Dermatologic History: Reports: Other (See Below) Other Dermatologic History: rash to back - Past Surgical History Head Surgeries/Procedures: Reports: None HEENT Surgical History: Reports: None Cardiovascular Surgical History: Reports: Cardiac Ablation Respiratory Surgical History: Reports: None GI Surgical History: Reports: Colonoscopy Other GI Surgeries/Procedures: hx rectal fistulectomy Female Surgical History: Reports: Hysterectomy, Other (See Below) Other Female Surgeries/Procedures: excision of chula anal fistula, axillary lumpectomy Musculoskeletal Surgical History: Reports: Other (See Below) Other Musculoskeletal Surgeries/Procedures:: closed reduction with internal fixation of left humerus Social & Family History - Family History Family Medical History: Noncontributory - Tobacco Use Smoking Status *Q: Heavy Tobacco Smoker Years of Tobacco use: 55 Packs/Tins Daily: 2 - Caffeine Use Caffeine Use: Reports: Coffee, Soda - Recreational Drug Use Recreational Drug Use: No - Living Situation & Occupation Living situation: Reports: with Family (lives with sister) Occupation: Retired Review of Systems - Review of Systems Review Of Systems: ROS reveals no pertinent complaints other than HPI. ED EXAM, GENERAL - Physical Exam Exam: See Below (See dictation) Course - Vital Signs Last Recorded V/S: Last Vital Signs Temp 96.5 F 02/15/19 09:51 Pulse 60 02/15/19 09:51 Resp 14 02/15/19 09:51 BP 119/68 02/15/19 09:51 Pulse Ox 100 02/15/19 09:51 Departure - Departure Time of Disposition: 10:49 Disposition: Home, Self-Care 01 Clinical Impression: Paresthesia - Discharge Information Referrals: Naga Lewis MD [Physician] - (Please keep scheduled follow up appointment with Dr. Lewis on ) PCP,Unknown [Primary Care Provider] - Forms: ED Department Discharge Additional Instructions: The following information is given to patients seen in the emergency department who are being discharged to home. This information is to outline your options for follow-up care. We provide all patients seen in our emergency department with a follow-up referral. The need for follow-up, as well as the timing and circumstances, are variable depending upon the specifics of your emergency department visit. If you don't have a primary care physician on staff, we will provide you with a referral. We always advise you to contact your personal physician following an emergency department visit to inform them of the circumstance of the visit and for follow-up with them and/or the need for any referrals to a consulting specialist. The emergency department will also refer you to a specialist when appropriate. This referral assures that you have the opportunity for follow-up care with a specialist. All of these measure are taken in an effort to provide you with optimal care, which includes your follow-up. Under all circumstances we always encourage you to contact your private physician who remains a resource for coordinating your care. When calling for follow-up care, please make the office aware that this follow-up is from your recent emergency room visit. If for any reason you are refused follow-up, please contact the [facility] Emergency Department at and asked to speak to the emergency department charge nurse. [facility] [address] [place] [id number] [id number] 1. You have an Appointment with Dr Mendes tomorrow (02/16/2019) at 3pm. Please see Dr Naga Lewis for follow-up. Dr Lewis may want to refer for an MRI if you continue to have symptoms. 2. Return to the ED as needed as discussed.
--- NOTE | 2019-02-15 10:44 | CT ---
Head CT Technique: Multiple axial sections through the brain were obtained. Intravenous contrast was not utilized. Comparison: Prior head CT study of 06/30/18. Findings: Ventricles along with basal cisterns and sulci over the convexities are mildly prominent. Minimal areas of diminished density are noted within the periventricular white matter most likely representing small vessel ischemic demyelination change. No other abnormal parenchymal densities are seen. No evidence of intracranial hemorrhage. No midline shift or mass effect is seen. Bone window settings were reviewed which shows no acute calvarial abnormality. Mild area of mucosal thickening is seen within the inferior right maxillary sinus which is chronic. No air-fluid levels are seen within the paranasal sinuses. Left mastoid sinus shows mild mucosal thickening which also appears chronic. Mild atherosclerotic calcification is noted within the carotid siphon. Impression: 1. Mild senescent change. 2. Minimal sinus findings as noted above which appear chronic. 3. Nothing acute is appreciated on noncontrast CT study of the brain. Note: If patient's symptoms suggest the possibility of acute infarct, MRI could then be considered. Diagnostic code #3 MTDD
[2019-02-15 11:05] VITALS: BP 149/60; PULSE 51
== END 2019-02-15 11:00 | disposition home or self-care (01) ==
LOC: MW.ED 09:42
DX: R20.2 Paresthesia of skin (principal); I10 Essential (primary) hypertension; E11.9 Type 2 diabetes mellitus without complications; E78.00 Pure hypercholesterolemia, unspecified; K21.9 Gastro-esophageal reflux disease without esophagitis; M19.90 Unspecified osteoarthritis, unspecified site; F41.9 Anxiety disorder, unspecified; Z90.710 Acquired absence of both cervix and uterus; F17.210 Nicotine dependence, cigarettes, uncomplicated; Z88.1 Allergy status to other antibiotic agents; Z88.0 Allergy status to penicillin; Z91.041 Radiographic dye allergy status; Z79.899 Other long term (current) drug therapy
CPT/HCPCS: 70450; 70450-26; 99283-25; 99284

== ENCOUNTER 2019-05-25 20:02 | Emergency (ER) | payer MEDICARE, OTHER ==
[2019-05-25] MEDS ORDERED: Sodium Chloride 0.9% 10 ML Syringe FLUSH PRN (20:33)
[2019-05-25] MEDS ORDERED: Sodium Chloride 0.9% 2.5 ML Syringe FLUSH PRN (20:33)
[2019-05-25 20:35] VITALS: BP 121/72; PULSE 83
--- NOTE | 2019-05-25 20:47 | EDM.PDOC ---
ED HPI GENERAL MEDICAL PROBLEM - General Chief Complaint: Abdominal Pain Stated Complaint: BOWEL ISSUES Time Seen by Provider: 05/25/19 20:20 Source of Information: Reports: Patient History Limitations: Reports: No Limitations - History of Present Illness INITIAL COMMENTS - FREE TEXT/NARRATIVE: HISTORY AND PHYSICAL: History of present illness: Patient is a 73-year-old female who presents to the emergency room with complaints of left lower abdominal pain. She states she has a history of diverticulitis and is concerned that her "bowels are acting up". She states her last complication related to her diverticulitis was approximately 2 years ago. Denies any recent change in her diet. Patient denies any fever, chills, headache, change in vision, syncope or near syncope. Denies any chest pain, back pain, shortness of breath or cough. Denies any nausea, vomiting, diarrhea, constipation or dysuria. Has not noted any blood in urine or stool. Patient has been eating and drinking appropriately. Review of systems: As per history of present illness and below otherwise all systems reviewed and negative. Past medical history: As per history of present illness and as reviewed below otherwise noncontributory. Surgical history: As per history of present illness and as reviewed below otherwise noncontributory. Social history: See social history for further information Family history: As per history of present illness and as reviewed below otherwise noncontributory. Physical exam: General: Well-developed and well-nourished 73-year-old female. Alert and oriented. Nontoxic-appearing and in no acute distress. Vital signs are stable and have been reviewed by me. HEENT: Atraumatic, normocephalic, pupils equal and reactive bilaterally, negative for conjunctival pallor or scleral icterus, mucous membranes moist, TMs normal bilaterally, throat clear, neck supple, nontender, trachea midline. No drooling or trismus noted. No meningeal signs. No hot potato voice noted. Lungs: Clear to auscultation, breath sounds equal bilaterally, chest nontender. Heart: S1S2, regular rate and rhythm without overt murmur Abdomen: Soft, nondistended, nontender. Negative for masses or hepatosplenomegaly. Negative for costovertebral tenderness. Pelvis: Stable nontender. Skin: Intact, warm, dry. No lesions or rashes noted. Extremities: Atraumatic, moves all extremities per self without difficulty or deficits, negative for cords or calf pain. Neurovascular unremarkable. Neuro: Awake, alert, oriented. Cranial nerves II through XII unremarkable. Cerebellum unremarkable. Motor and sensory unremarkable throughout. Exam nonfocal. Notes: Patient has allergy to IV contrast; will do CT without. CT shows acute diverticulitis in the mid descending colon without any complication. Patient is able to tolerate fluids. She does prefer to go home. We will give her her first dose of oral antibiotics while here and then send a prescription for the Flagyl and Cipro. We did discuss signs and symptoms that would prompt her to return to the emergency room. Encouraged her to follow -up with her primary care and/or the general surgeon. Supportive care measures were reviewed and discussed. Voices understanding and is agreeable to plan of care. Denies any further questions or concerns at this time. Diagnostics: CBC, CMP, UA, CT abd/pelvis Therapeutics: None Prescription: Flagyl, Cipro Impression: Diverticulitis Plan: 1. Dickens diet, advance as tolerated. Avoid any aggravating foods (seeds etc... ). Take the antibiotic as prescribed. Please use Tylenol and/or Ibuprofen as needed for pain and fever management. 2. Get plenty of Rest. Encourage fluids to prevent dehydration. 3. Please follow up with your primary care provider. Return to the ED as needed as discussed. Definitive disposition and diagnosis as appropriate pending reevaluation and review of above. abdomen Pain Score (Numeric/FACES): 5 - Related Data Allergies Allergy/AdvReac Type Severity Reaction Status Date / Time cephalexin [From Keflex] Allergy Itching Verified 05/25/19 20:05 Iodinated Contrast Media Allergy Itching Verified 05/25/19 20:05 [Iodinated Contrast Media - IV Dye] Penicillins Allergy Edema Verified 05/25/19 20:05 Home Meds: Home Meds Citalopram Hydrobromide [Celexa] 40 mg PO DAILY 12/26/15 [History] Folic Acid 1 tab PO DAILY@1200 12/26/15 [History] Garlic 1,000 mg PO BEDTIME 12/26/15 [History] Lisinopril 40 mg PO DAILY 12/26/15 [History] Lutein/Min/Vit C/Vit E Acetate [Ocuvite Lutein] 1 tab PO DAILY 12/26/15 [History ] [place]-3/DHA/Epa/Fish Oil [[place]-3 Fish Oil 1,000 MG Sfgl] 1,000 mg PO BID [History] Simvastatin [Zocor] 40 mg PO BEDTIME 12/26/15 [History] Vitamin B Complex 1 tab PO DAILY@1200 12/26/15 [History] traZODone HCl [Trazodone HCl] 150 mg PO BEDTIME 12/26/15 [History] Calcium Carbonate/Vitamin D3 [Calcium 600 + Vit D Tablet] 2 tab PO BID@1200, 2100 09/16/17 [History] Diltiazem HCl [Diltiazem 24Hr ER] 120 mg PO DAILY 09/16/17 [History] Fluticasone Propionate [Flonase] 2 spray NASBOTH DAILY PRN 09/16/17 [History] Docusate Sodium 100 mg PO DAILY PRN 11/05/17 [History] Omeprazole 20 mg PO DAILY 05/25/19 [History] Past Medical History HEENT History: Reports: Hard of Hearing, Impaired Vision, Other (See Below) Other HEENT History: wears glasses, top denture, lower partial, ayan hearing aids Cardiovascular History: Reports: Arrhythmia, High Cholesterol, Hypertension Respiratory History: Reports: COPD Gastrointestinal History: Reports: Diverticulosis, GERD Other Gastrointestinal History: diverticulitis Genitourinary History: Reports: None 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 History: Reports: Musculoskeletal History: Reports: Arthritis, Other (See Below) Other Musculoskeletal History: (L) humerus fx Neurological History: Reports: Other (See Below) Other Neuro History: hx head injury Psychiatric History: Reports: Anxiety Endocrine/Metabolic History: Reports: Diabetes, Type II Other Endocrine/Metabolic History: diet controlled type II diabetes Hematologic History: Reports: None Immunologic History: Reports: None Oncologic (Cancer) History: Reports: None Dermatologic History: Reports: Other (See Below) Other Dermatologic History: rash to back - Past Surgical History Head Surgeries/Procedures: Reports: None HEENT Surgical History: Reports: None Cardiovascular Surgical History: Reports: Cardiac Ablation Respiratory Surgical History: Reports: None GI Surgical History: Reports: Colonoscopy Other GI Surgeries/Procedures: hx rectal fistulectomy Female Surgical History: Reports: Hysterectomy, Other (See Below) Other Female Surgeries/Procedures: excision of chula anal fistula, axillary lumpectomy Musculoskeletal Surgical History: Reports: Other (See Below) Other Musculoskeletal Surgeries/Procedures:: closed reduction with internal fixation of left humerus Social & Family History - Family History Family Medical History: Noncontributory - Caffeine Use Caffeine Use: Reports: Coffee, Soda - Living Situation & Occupation Living situation: Reports: with Family (lives with sister) Occupation: Retired ED ROS GENERAL - Review of Systems Review Of Systems: Comprehensive ROS is negative, except as noted in HPI. ED EXAM, GI/ABD - Physical Exam Exam: See Below (See dictation) Course - Vital Signs Last Recorded V/S: Last Vital Signs Temp 97.1 F 05/25/19 20:15 Pulse 83 05/25/19 20:15 Resp 18 05/25/19 20:15 BP 121/72 05/25/19 20:15 Pulse Ox 96 05/25/19 20:15 - Orders/Labs/Meds Orders: Active Orders 24 hr Category Date Time Status CULTURE URINE [RM] Stat Lab 05/25/19 20:48 Received Labs: Laboratory Tests 05/25/19 05/25/19 05/25/19 Range/Units 20:41 20:41 20:48 WBC 11.34 H (4.0-11.0) K/uL RBC 5.03 (4.30-5.90) M/uL Hgb 16.3 H (12.0-16.0) g/dL Hct 45.8 (36.0-46.0) % MCV 91.1 (80.0-98.0) fL MCH 32.4 H (27.0-32.0) pg MCHC 35.6 (31.0-37.0) g/dL RDW Std Deviation 40.0 (28.0-62.0) fl RDW Coeff of Miguelito 12 (11.0-15.0) % Plt Count 208 (150-400) K/uL MPV 10.50 (7.40-12.00) fL Neut % (Auto) 71.2 (48.0-80.0) % Lymph % (Auto) 18.9 (16.0-40.0) % Wirt % (Auto) 9.3 (0.0-15.0) % Eos % (Auto) 0.4 (0.0-7.0) % Baso % (Auto) 0.2 (0.0-1.5) % Neut # (Auto) 8.1 H (1.4-5.7) K/uL Lymph # (Auto) 2.1 (0.6-2.4) K/uL Wirt # (Auto) 1.1 H (0.0-0.8) K/uL Eos # (Auto) 0.0 (0.0-0.7) K/uL Baso # (Auto) 0.0 (0.0-0.1) K/uL Nucleated RBC % 0.0 /100WBC Nucleated RBCs # 0 K/uL Sodium 133 L (136-145) mmol/L Potassium 4.4 (3.5-5.1) mmol/L Chloride 96 L (98-107) mmol/L Carbon Dioxide 27.6 (21.0-32.0) mmol/L BUN 7 (7.0-18.0) mg/dL Creatinine 0.8 (0.6-1.0) mg/dL Est Cr Clr Drug Dosing 49.53 mL/min Estimated GFR (MDRD) > 60.0 ml/min Glucose 154 H (74-106) mg/dL Calcium 9.5 (8.5-10.1) mg/dL Total Bilirubin 0.9 (0.2-1.0) mg/dL AST 17 (15-37) IU/L ALT 29 (14-63) IU/L Alkaline Phosphatase 78 (46-116) U/L Total Protein 7.8 (6.4-8.2) g/dL Albumin 4.1 (3.4-5.0) g/dL Globulin 3.7 (2.6-4.0) g/dL Albumin/Globulin Ratio 1.1 (0.9-1.6) Urine Color YELLOW Urine Appearance CLEAR Urine pH 7.0 (5.0-8.0) Ur Specific [place] 1.010 (1.001-1.035) Urine Protein NEGATIVE (NEGATIVE) mg/dL Urine Glucose (UA) NEGATIVE (NEGATIVE) mg/dL Urine Ketones TRACE H (NEGATIVE) mg/dL Urine Occult Blood NEGATIVE (NEGATIVE) Urine Nitrite NEGATIVE (NEGATIVE) Urine Bilirubin NEGATIVE (NEGATIVE) Urine Urobilinogen 0.2 (<2.0) EU/dL Ur Leukocyte Esterase MODERATE H (NEGATIVE) Urine RBC NONE SEEN (0-2/HPF) Urine WBC 3-6 (0-5/HPF) Ur Epithelial Cells OCCASIONAL (NONE-FEW) Urine Bacteria FEW (NEGATIVE) Urine Mucus LIGHT (NONE-MOD) Meds: Medications Discontinued Medications Generic Name Dose Route Start Last Admin Trade Name Solo PRN Reason Stop Dose Admin Ciprofloxacin 500 mg 05/25/19 22:01 Ciprofloxacin Hcl PO 05/25/19 22:02 ONETIME ONE Metronidazole 500 mg 05/25/19 22:01 Metronidazole PO 05/25/19 22:02 ONETIME ONE Sodium Chloride 10 ml 05/25/19 20:33 Saline Flush FLUSH ASDIRECTED PRN Keep Vein Open Sodium Chloride 2.5 ml 05/25/19 20:33 Saline Flush FLUSH ASDIRECTED PRN Keep Vein Open Departure - Departure Time of Disposition: 22:06 Disposition: Home, Self-Care 01 Clinical Impression: Diverticulitis - Discharge Information Instructions: Diverticulitis, [id number] Referrals: Naga Lewis MD [Primary Care Provider] - Forms: ED Department Discharge Additional Instructions: The following information is given to patients seen in the emergency department who are being discharged to home. This information is to outline your options for follow-up care. We provide all patients seen in our emergency department with a follow-up referral. The need for follow-up, as well as the timing and circumstances, are variable depending upon the specifics of your emergency department visit. If you don't have a primary care physician on staff, we will provide you with a referral. We always advise you to contact your personal physician following an emergency department visit to inform them of the circumstance of the visit and for follow-up with them and/or the need for any referrals to a consulting specialist. The emergency department will also refer you to a specialist when appropriate. This referral assures that you have the opportunity for follow-up care with a specialist. All of these measure are taken in an effort to provide you with optimal care, which includes your follow-up. Under all circumstances we always encourage you to contact your private physician who remains a resource for coordinating your care. When calling for follow-up care, please make the office aware that this follow-up is from your recent emergency room visit. If for any reason you are refused follow-up, please contact the [facility] Emergency Department at and asked to speak to the emergency department charge nurse. [facility] [address] [place] [address] [facility] [address] [place] [address] 1. Dickens diet, advance as tolerated. Avoid any aggravating foods (seeds etc... ). Take the antibiotic as prescribed. Please use Tylenol and/or Ibuprofen as needed for pain and fever management. 2. Get plenty of Rest. Encourage fluids to prevent dehydration. 3. Please follow up with your primary care provider. Return to the ED as needed as discussed. Sepsis Event Note - Evaluation Sepsis Screening Result: No Definite Risk - Focused Exam Vital Signs: Vital Signs Temp Pulse Resp BP Pulse Ox 05/25/19 20:15 97.1 F 83 18 121/72 96 Date Exam was Performed: 05/25/19 Time Exam was Performed: 22:04 - My Orders Last 24 Hours: My Active Orders 05/25/19 20:48 CULTURE URINE [RM] Stat - Assessment/Plan Last 24 Hours: My Active Orders 05/25/19 20:48 CULTURE URINE [RM] Stat
[2019-05-25 21:09] LABS: BLOOD UREA NITROGEN,BUN 7 mg/dL (7.0-18.0); CARBON DIOXIDE,CO2 27.6 mmol/L (21.0-32.0); CHLORIDE,CL 96 mmol/L (98-107); GLUCOSE RANDOM 154 mg/dL (74-106); POTASSIUM,K 4.4 mmol/L (3.5-5.1); SODIUM,NA 133 mmol/L (136-145)
--- NOTE | 2019-05-25 21:59 | CT ---
INDICATION: Left lower quadrant abdomen pain TECHNIQUE: CT abdomen and pelvis without contrast. COMPARISON: 09/16/2017 FINDINGS: Lower chest: Unremarkable. Liver: Normal in size and attenuation. No masses. Gallbladder and bile ducts: No stones or inflammation. No biliary dilatation. Pancreas: Unremarkable. No mass or inflammation. Spleen: Normal in size. No masses. Adrenal glands: Normal in size. No nodules. Kidneys: Normal in size. No masses, stones, or hydronephrosis. GI tract: There is acute inflammation of a diverticulum in the mid descending colon without evidence of jennifer perforation or abscess. Remainder of the GI tract is unremarkable. Normal appendix. Vasculature: Unremarkable. Lymph nodes: No lymphadenopathy. Abdominal wall/Omentum/Peritoneum: Unremarkable. No sign of mass or infiltration. No free air or significant free fluid. Pelvis: Unremarkable. No pelvic masses. Bones: Unremarkable for age. IMPRESSION: Acute diverticulitis in the mid descending colon without complication. Please note that all CT scans at this facility use dose modulation, iterative reconstruction, and/or weight-based dosing when appropriate to reduce radiation dose to as low as reasonably achievable. Dictated by Bandar Tipton MD @ May 25 2019 9:53PM Signed by Dr. Bandar Tipton @ May 25 2019 9:58PM
[2019-05-25] MEDS ORDERED: metroNIDAZOLE 250 MG Tab PO ONE (22:01)
[2019-05-25] MEDS ORDERED: Ciprofloxacin 500 MG Tab PO ONE (22:01)
== END 2019-05-25 22:26 | disposition home or self-care (01) ==
LOC: MW.ED 20:02
DX: K57.32 Diverticulitis of large intestine without perforation or abscess without bleeding (principal); I10 Essential (primary) hypertension; K21.9 Gastro-esophageal reflux disease without esophagitis; E11.9 Type 2 diabetes mellitus without complications; Z88.0 Allergy status to penicillin; Z88.1 Allergy status to other antibiotic agents; Z91.041 Radiographic dye allergy status; Z79.899 Other long term (current) drug therapy; Z90.710 Acquired absence of both cervix and uterus
CPT/HCPCS: 36415; 74176; 80053; 81001; 85025; 87086; 99284; A9270

== ENCOUNTER 2019-07-19 17:02 | Emergency (ER) | payer MEDICARE, OTHER ==
[2019-07-19] MEDS ORDERED: Ondansetron 4 MG/2 ML SDV IVPUSH ONE (17:32)
[2019-07-19] MEDS ORDERED: Sodium Chloride 0.9% 2.5 ML Syringe FLUSH PRN (17:32)
[2019-07-19] MEDS ORDERED: Sodium Chloride 0.9% 1,000 ML IV ONE (17:32)
[2019-07-19] MEDS ORDERED: Sodium Chloride 0.9% 10 ML Syringe FLUSH PRN (17:32)
--- NOTE | 2019-07-19 17:53 | EDM.PDOC ---
ED HPI GENERAL MEDICAL PROBLEM - General Chief Complaint: Abdominal Pain Stated Complaint: INFLAMMATION ABDOMEN Time Seen by Provider: 07/19/19 17:28 Source of Information: Reports: Patient History Limitations: Reports: No Limitations - History of Present Illness INITIAL COMMENTS - FREE TEXT/NARRATIVE: Pt with a reported pmh of diverticulitis presents with 2 days or cramping lower abdominal pain associated with watery diarrhea. Pt denies blood in stool, n/v, fevers or any other symptoms. Pelvic/Low Abdomen Pain Score (Numeric/FACES): 1 - Related Data Allergies Allergy/AdvReac Type Severity Reaction Status Date / Time cephalexin [From Keflex] Allergy Itching Verified 05/25/19 20:05 Iodinated Contrast Media Allergy Itching Verified 05/25/19 20:05 [Iodinated Contrast Media - IV Dye] Penicillins Allergy Edema Verified 05/25/19 20:05 Home Meds: Home Meds Citalopram Hydrobromide [Celexa] 40 mg PO DAILY 12/26/15 [History] Folic Acid 1 tab PO DAILY@1200 12/26/15 [History] Garlic 1,000 mg PO BEDTIME 12/26/15 [History] Lisinopril 40 mg PO DAILY 12/26/15 [History] Lutein/Min/Vit C/Vit E Acetate [Ocuvite Lutein] 1 tab PO DAILY 12/26/15 [History ] [place]-3/DHA/Epa/Fish Oil [[place]-3 Fish Oil 1,000 MG Sfgl] 1,000 mg PO BID [History] Simvastatin [Zocor] 40 mg PO BEDTIME 12/26/15 [History] Vitamin B Complex 1 tab PO DAILY@1200 12/26/15 [History] traZODone HCl [Trazodone HCl] 150 mg PO BEDTIME 12/26/15 [History] Calcium Carbonate/Vitamin D3 [Calcium 600 + Vit D Tablet] 2 tab PO BID@1200, 2100 09/16/17 [History] Diltiazem HCl [Diltiazem 24Hr ER] 120 mg PO DAILY 09/16/17 [History] Fluticasone Propionate [Flonase] 2 spray NASBOTH DAILY PRN 09/16/17 [History] Docusate Sodium 100 mg PO DAILY PRN 11/05/17 [History] Omeprazole 20 mg PO DAILY 05/25/19 [History] Ciprofloxacin [Ciprofloxacin HCl] 500 mg PO BID 10 Days #20 tab 07/19/19 [Rx] metroNIDAZOLE [Flagyl] 500 mg PO Q8H 10 Days #30 tab 07/19/19 [Rx] Past Medical History HEENT History: Reports: Hard of Hearing, Impaired Vision, Other (See Below) Other HEENT History: wears glasses, top denture, lower partial, ayan hearing aids Cardiovascular History: Reports: Arrhythmia, High Cholesterol, Hypertension Respiratory History: Reports: COPD Gastrointestinal History: Reports: Diverticulosis, GERD Other Gastrointestinal History: diverticulitis Genitourinary History: Reports: None [employer] History: Reports: Musculoskeletal History: Reports: Arthritis, Other (See Below) Other Musculoskeletal History: (L) humerus fx Neurological History: Reports: Other (See Below) Other Neuro History: hx head injury Psychiatric History: Reports: Anxiety Endocrine/Metabolic History: Reports: Diabetes, Type II Other Endocrine/Metabolic History: diet controlled type II diabetes Hematologic History: Reports: None Immunologic History: Reports: None Oncologic (Cancer) History: Reports: None Dermatologic History: Reports: Other (See Below) Other Dermatologic History: rash to back - Past Surgical History Head Surgeries/Procedures: Reports: None HEENT Surgical History: Reports: None Cardiovascular Surgical History: Reports: Cardiac Ablation Respiratory Surgical History: Reports: None GI Surgical History: Reports: Colonoscopy Other GI Surgeries/Procedures: hx rectal fistulectomy Female Surgical History: Reports: Hysterectomy, Other (See Below) Other Female Surgeries/Procedures: excision of chula anal fistula, axillary lumpectomy Musculoskeletal Surgical History: Reports: Other (See Below) Other Musculoskeletal Surgeries/Procedures:: closed reduction with internal fixation of left humerus Social & Family History - Family History Family Medical History: Noncontributory - Tobacco Use Smoking Status *Q: Current Every Day Smoker Years of Tobacco use: 60 Packs/Tins Daily: 1 - Caffeine Use Caffeine Use: Reports: Coffee, Soda - Recreational Drug Use Recreational Drug Use: Yes Drug Use in Last 12 Months: Yes Recreational Drug Type: Reports: Marijuana/Hashish - Living Situation & Occupation Living situation: Reports: with Family (lives with sister) Occupation: Retired ED ROS GENERAL - Review of Systems Review Of Systems: See Below Constitutional: Reports: No Symptoms. Denies: Fever, Chills Respiratory: Reports: No Symptoms Cardiovascular: Reports: No Symptoms GI/Abdominal: Reports: Abdominal Pain, Diarrhea. Denies: Black Stool, Bloody Stool ED EXAM, GI/ABD - Physical Exam Exam: See Below General Appearance: Alert, WD/WN, No Apparent Distress Respiratory/Chest: No Respiratory Distress, Lungs Clear, Normal Breath Sounds Cardiovascular: Regular Rate, Rhythm, No Murmur GI/Abdominal Exam: Soft, Non-Tender, No Distention. No: Guarding, Rigid, Rebound Extremities: Normal Inspection Skin Exam: Warm, Dry, Intact Course - Vital Signs Last Recorded V/S: Last Vital Signs Temp 97.2 F 07/19/19 19:14 Pulse 58 L 07/19/19 19:14 Resp 18 07/19/19 19:14 BP 115/65 07/19/19 19:14 Pulse Ox 97 07/19/19 19:14 - Orders/Labs/Meds Labs: Laboratory Tests 07/19/19 07/19/19 Range/Units 18:00 18:00 WBC 9.85 (4.0-11.0) K/uL RBC 5.07 (4.30-5.90) M/uL Hgb 16.2 H (12.0-16.0) g/dL Hct 47.3 H (36.0-46.0) % MCV 93.3 (80.0-98.0) fL MCH 32.0 (27.0-32.0) pg MCHC 34.2 (31.0-37.0) g/dL RDW Std Deviation 42.7 (28.0-62.0) fl RDW Coeff of Miguelito 13 (11.0-15.0) % Plt Count 194 (150-400) K/uL MPV 10.50 (7.40-12.00) fL Neut % (Auto) 70.8 (48.0-80.0) % Lymph % (Auto) 19.8 (16.0-40.0) % [place] % (Auto) 8.6 (0.0-15.0) % Eos % (Auto) 0.6 (0.0-7.0) % Baso % (Auto) 0.2 (0.0-1.5) % Neut # (Auto) 7.0 H (1.4-5.7) K/uL Lymph # (Auto) 2.0 (0.6-2.4) K/uL [place] # (Auto) 0.9 H (0.0-0.8) K/uL Eos # (Auto) 0.1 (0.0-0.7) K/uL Baso # (Auto) 0.0 (0.0-0.1) K/uL Nucleated RBC % 0.0 /100WBC Nucleated RBCs # 0 K/uL Sodium 140 (136-145) mmol/L Potassium 3.3 L (3.5-5.1) mmol/L Chloride 102 (98-107) mmol/L Carbon Dioxide 27.3 (21.0-32.0) mmol/L BUN 5 L (7.0-18.0) mg/dL Creatinine 0.7 (0.6-1.0) mg/dL Est Cr Clr Drug Dosing 55.77 mL/min Estimated GFR (MDRD) > 60.0 ml/min Glucose 91 (74-106) mg/dL Calcium 9.6 (8.5-10.1) mg/dL Total Bilirubin 1.0 (0.2-1.0) mg/dL AST 22 (15-37) IU/L ALT 27 (14-63) IU/L Alkaline Phosphatase 81 (46-116) U/L Total Protein 7.7 (6.4-8.2) g/dL Albumin 4.2 (3.4-5.0) g/dL Globulin 3.5 (2.6-4.0) g/dL Albumin/Globulin Ratio 1.2 (0.9-1.6) Lipase 113 (73-393) U/L Meds: Medications Discontinued Medications Generic Name Dose Route Start Last Admin Trade Name Freq PRN Reason Stop Dose Admin Sodium Chloride 1,000 mls @ 999 mls/hr 07/19/19 17:32 07/19/19 17:57 Normal Saline IV 07/19/19 18:32 999 mls/hr BOLUS ONE Administration Ondansetron HCl 4 mg 07/19/19 17:32 07/19/19 17:57 Zofran IVPUSH 07/19/19 17:33 4 mg ONETIME ONE Administration Sodium Chloride 10 ml 07/19/19 17:32 Saline Flush FLUSH ASDIRECTED PRN Keep Vein Open Sodium Chloride 2.5 ml 07/19/19 17:32 Saline Flush FLUSH ASDIRECTED PRN Keep Vein Open - Re-Assessments/Exams Free Text/Narrative Re-Assessment/Exam: VS stable and PE benign. ED work up shows findings consistent with mild diverticulitis. Labs normal. Results discussed in detail with pt. Pt prescribed cipro ad flagyl and is comfortable with discharge. Pt describes to me a dilsulfiram like reaction to flagyl prescribed in 06/07. Pt advised against eoth use while on this medicine. Strict return precautions discussed should symptoms worsen or any concerns arise. Departure - Departure Time of Disposition: 19:04 Disposition: Home, Self-Care 01 Condition: Good Clinical Impression: Diverticulitis - Discharge Information *PRESCRIPTION DRUG MONITORING PROGRAM REVIEWED*: Not Applicable *COPY OF PRESCRIPTION DRUG MONITORING REPORT IN PATIENT VICTORINA: Not Applicable Prescriptions: Ciprofloxacin [Ciprofloxacin HCl] 500 mg PO BID 10 Days #20 tab metroNIDAZOLE [Flagyl] 500 mg PO Q8H 10 Days #30 tab Instructions: Diverticulitis, [id number] Referrals: Naga Lewis MD [Primary Care Provider] - Forms: ED Department Discharge Additional Instructions: My general discharge The following information is given to patients seen in the emergency department who are being discharged to home. This information is to outline your options for follow-up care. We provide all patients seen in our emergency department with a follow-up referral. The need for follow-up, as well as the timing and circumstances, are variable depending upon the specifics of your emergency department visit. If you don't have a primary care physician on staff, we will provide you with a referral. We always advise you to contact your personal physician following an emergency department visit to inform them of the circumstance of the visit and for follow-up with them and/or the need for any referrals to a consulting specialist. The emergency department will also refer you to a specialist when appropriate. This referral assures that you have the opportunity for follow-up care with a specialist. All of these measure are taken in an effort to provide you with optimal care, which includes your follow-up. Under all circumstances we always encourage you to contact your private physician who remains a resource for coordinating your care. When calling for follow-up care, please make the office aware that this follow-up is from your recent emergency room visit. If for any reason you are refused follow-up, please contact the [facility] Emergency Department at and asked to speak to the emergency department charge nurse. Sepsis Event Note - Evaluation Sepsis Screening Result: No Definite Risk - Focused Exam Date Exam was Performed: 07/21/19 Time Exam was Performed: 12:01
[2019-07-19 18:33] LABS: BLOOD UREA NITROGEN,BUN 5 mg/dL (7.0-18.0); CARBON DIOXIDE,CO2 27.3 mmol/L (21.0-32.0); CHLORIDE,CL 102 mmol/L (98-107); GLUCOSE RANDOM 91 mg/dL (74-106); LIPASE 113 U/L (73-393); POTASSIUM,K 3.3 mmol/L (3.5-5.1); SODIUM,NA 140 mmol/L (136-145)
--- NOTE | 2019-07-19 18:37 | CT ---
CT abdomen and pelvis Technique: Multiple axial sections were obtained from above the dome of the diaphragm inferiorly through the pubic symphysis. Intravenous and oral contrast not utilized. Lack of contrast limits some details of the exam. Comparison: Prior CT abdomen and pelvis exam of 05/25/19. Findings: Visualized lung bases show nothing acute. Calcification is noted within the right lung base compatible with granuloma. Liver contains no focal parenchymal abnormality. Spleen appears within normal limits. Single calcification is noted within the spleen which is compatible with granuloma. Adrenal glands show no nodule. Pancreas shows no discrete abnormality. Aorta shows diffuse atherosclerotic calcification which continues into the iliac vessels without aneurysm. Gallbladder contains no calcified gallstones. No retroperitoneal adenopathy or mesenteric abnormalities are seen. No pelvic mass or adenopathy is seen. Slight inflammatory change is seen within the left side of the pelvis. Findings are most likely from mild diverticulitis. Numerous diverticuli are seen within the sigmoid colon. No fluid collections of abscess are seen. Appendix not visualized with certainty. No additional pelvic abnormality is appreciated. Bone window settings were reviewed which shows scattered degenerative change within the spine. Impression: 1. Mild inflammatory change within the pelvis most likely due to mild diverticulitis. 2. Other findings as noted above believed to be incidental. Diagnostic code #3 This report was dictated in [place] [employer] Time
[2019-07-19 19:15] VITALS: BP 115/65; PULSE 58
== END 2019-07-19 19:15 | disposition home or self-care (01) ==
LOC: MW.ED 17:02
DX: K57.32 Diverticulitis of large intestine without perforation or abscess without bleeding (principal); I10 Essential (primary) hypertension; E78.00 Pure hypercholesterolemia, unspecified; J44.9 Chronic obstructive pulmonary disease, unspecified; E11.9 Type 2 diabetes mellitus without complications; Z88.1 Allergy status to other antibiotic agents; Z91.041 Radiographic dye allergy status; Z88.0 Allergy status to penicillin; Z79.899 Other long term (current) drug therapy
CPT/HCPCS: 36415; 74176; 80053; 83690; 85025; 96361; 96374; 99284; J2405; J7030

== ENCOUNTER 2021-06-22 03:17 | Emergency (ER) | payer MEDICARE, OTHER ==
[2021-06-22 03:52] LABS: BLOOD UREA NITROGEN,BUN 7 mg/dL (7.0-18.0); CARBON DIOXIDE,CO2 27.2 mmol/L (21.0-32.0); CHLORIDE,CL 100 mmol/L (98-107); GLUCOSE RANDOM 89 mg/dL (74-106); POTASSIUM,K 3.5 mmol/L (3.5-5.1); SODIUM,NA 139 mmol/L (136-145)
[2021-06-22 05:09] VITALS: BP 134/55; PULSE 52
== END 2021-06-22 05:02 | disposition home or self-care (01) ==
LOC: MW.ED 03:17
DX: G56.32 Lesion of radial nerve, left upper limb (principal); M21.332 Wrist drop, left wrist; E78.00 Pure hypercholesterolemia, unspecified; I10 Essential (primary) hypertension; J44.9 Chronic obstructive pulmonary disease, unspecified; K21.9 Gastro-esophageal reflux disease without esophagitis; E11.9 Type 2 diabetes mellitus without complications; Z72.0 Tobacco use; Z88.1 Allergy status to other antibiotic agents; Z88.0 Allergy status to penicillin; Z91.041 Radiographic dye allergy status; Z79.899 Other long term (current) drug therapy; Z20.822 Contact with and (suspected) exposure to COVID-19
CPT/HCPCS: 70450; 71045; 80053; 80307; 84484; 85025; 85610; 93005; 99284; U0002

== ENCOUNTER 2022-06-05 17:53 | Emergency (ER) | payer MEDICARE, OTHER ==
[2022-06-05] MEDS ORDERED: Ondansetron 4 MG/2 ML SDV IVPUSH ONE (19:43)
[2022-06-05] MEDS ORDERED: Morphine 4 MG/ML Syringe IVPUSH ONE (19:43)
[2022-06-05 20:34] LABS: BLOOD UREA NITROGEN,BUN 13 mg/dL (7.0-18.0); CARBON DIOXIDE,CO2 27.3 mmol/L (21.0-32.0); CHLORIDE,CL 100 mmol/L (98-107); GLUCOSE RANDOM 104 mg/dL (74-106); LIPASE 189 U/L (73-393); POTASSIUM,K 3.5 mmol/L (3.5-5.1); SODIUM,NA 137 mmol/L (136-145)
[2022-06-05 20:39] LABS: ESTIMATED GFR 90 mL/min (>60)
[2022-06-05 21:48] VITALS: BP 136/61; PULSE 50
== END 2022-06-05 21:46 | disposition home or self-care (01) ==
LOC: MW.ED 17:53
DX: R10.31 Right lower quadrant pain (principal); R10.32 Left lower quadrant pain; J44.9 Chronic obstructive pulmonary disease, unspecified; K21.9 Gastro-esophageal reflux disease without esophagitis; E11.9 Type 2 diabetes mellitus without complications; I10 Essential (primary) hypertension; F17.210 Nicotine dependence, cigarettes, uncomplicated; Z88.1 Allergy status to other antibiotic agents; Z91.041 Radiographic dye allergy status; Z88.0 Allergy status to penicillin; Z79.899 Other long term (current) drug therapy; Z20.822 Contact with and (suspected) exposure to COVID-19
CPT/HCPCS: 36415; 71045; 74176; 80053; 81001; 83605; 83690; 83735; 84484; 85025; 93005; 99284; U0002; 93010

== ENCOUNTER 2022-08-07 11:50 | Emergency (ER) | payer MEDICARE, OTHER ==
[2022-08-07] MEDS ORDERED: Sodium Chloride 0.9% 2.5 ML Syringe FLUSH PRN (11:52)
[2022-08-07] MEDS ORDERED: Sodium Chloride 0.9% 10 ML Syringe FLUSH PRN (11:52)
[2022-08-07 14:05] LABS: CARBON DIOXIDE,CO2 28.6 mmol/L (21.0-32.0); POTASSIUM,K 3.9 mmol/L (3.5-5.1)
[2022-08-07 14:19] LABS: CORONAVIRUS COVID-19 NAA POSITIVE (NEGATIVE); INFLUENZA A NAA NEGATIVE (NEGATIVE); INFLUENZA B NAA NEGATIVE (NEGATIVE)
[2022-08-07] MEDS ORDERED: Dexamethasone 10 MG/ML SDV IVPUSH ONE (14:37)
[2022-08-07 15:39] VITALS: BP 131/72; PULSE 71
== END 2022-08-07 15:38 | disposition home or self-care (01) ==
LOC: MW.ED 11:50
DX: U07.1 COVID-19 (principal); K21.9 Gastro-esophageal reflux disease without esophagitis; E78.00 Pure hypercholesterolemia, unspecified; Z88.1 Allergy status to other antibiotic agents; Z91.041 Radiographic dye allergy status; Z88.0 Allergy status to penicillin; Z79.899 Other long term (current) drug therapy
CPT/HCPCS: 0240U; 36415; 71045; 80053; 81001; 83880; 85025; 87086; 93005; 96374; 99285; J1100; J3490; 99284

== ENCOUNTER 2023-11-09 15:57 | Emergency (ER) | payer MEDICARE, OTHER ==
[2023-11-09] MEDS: Sodium Chloride 0.9% 10 ML Syringe FLUSH PRN (17:16)
[2023-11-09] MEDS: diphenhydrAMINE 50 MG/ML SDV IVPUSH ONE (17:16)
[2023-11-09] MEDS: Metoclopramide 10 MG/2 ML SDV IVPUSH ONE (17:16)
[2023-11-09] MEDS: Sodium Chloride 0.9% 500 ML IV ONE (17:16)
[2023-11-09] MEDS: Sodium Chloride 0.9% 2.5 ML Syringe FLUSH PRN (17:16)
[2023-11-09 17:35] LABS: INR 1.1 (0.86-1.11)
[2023-11-09 17:46] LABS: A/G RATIO 1.1 (0.9-1.6); ALBUMIN 3.9 g/dL (3.4-5.0); BILIRUBIN TOTAL 0.5 mg/dL (0.2-1.0); CALCIUM 8.8 mg/dL (8.5-10.1); CARBON DIOXIDE,CO2 27.4 mmol/L (21.0-32.0); CREATININE 0.6 mg/dL (0.6-1.0); EST CRCL DRUG DOSING (CG) 66.73 mL/min; POTASSIUM,K 3.9 mmol/L (3.5-5.1); PROTEIN TOTAL,TP 7.4 g/dL (6.4-8.2)
[2023-11-09 18:23] VITALS: PULSE 62
[2023-11-09 18:25] LABS: BASOPHILS ABSOLUTE AUTO 0.02 K/uL (0.00-0.20); BASOPHILS PERCENT AUTO 0.2 % (0.0-1.0); EOSINOPHILS ABSOLUTE AUTO 0.04 K/uL (0.00-0.45); EOSINOPHILS PERCENT AUTO 0.4 % (0.0-6.0); HEMOGLOBIN 14.7 g/dL (12.0-16.0); IMMATURE GRAN ABSOLUTE AUTO 0.03 K/uL (0.00-0.05); IMMATURE GRAN PERCENT AUTO 0.3 % (0.0-0.4); LYMPHOCYTES ABSOLUTE AUTO 1.24 K/uL (1.00-4.80); LYMPHOCYTES PERCENT AUTO 13.8 % (24.0-44.0); MEAN CORPUSCULAR HEMOGLOBIN 31.3 pg (28.0-32.0); MEAN CORPUSCULAR HGB CONC 37.7 g/dL (32.0-36.0); MEAN PLATELET VOLUME 9.4 fL (9.4-12.3); MONOCYTES ABSOLUTE AUTO 0.83 K/uL (0.00-0.80); MONOCYTES PERCENT AUTO 9.3 % (0.0-8.0); PLATELET COUNT,PLT 222 K/uL (150-400); WHITE BLOOD CELL COUNT,WBC 8.96 K/uL (3.9-11.3)
[2023-11-09 19:05] VITALS: BP 165/57
== END 2023-11-09 20:09 | disposition left against medical advice (07) ==
LOC: MW.ED 15:57
DX: S00.511A Abrasion of lip, initial encounter (principal); S00.81XA Abrasion of other part of head, initial encounter; I10 Essential (primary) hypertension; E87.1 Hypo-osmolality and hyponatremia; E78.00 Pure hypercholesterolemia, unspecified; E11.9 Type 2 diabetes mellitus without complications; K21.9 Gastro-esophageal reflux disease without esophagitis; J44.9 Chronic obstructive pulmonary disease, unspecified; Z90.710 Acquired absence of both cervix and uterus; Z88.1 Allergy status to other antibiotic agents; Z88.2 Allergy status to sulfonamides; Z91.041 Radiographic dye allergy status; Z88.0 Allergy status to penicillin; Z79.899 Other long term (current) drug therapy; W01.198A Fall on same level from slipping, tripping and stumbling with subsequent striking against other object, initial encounter
CPT/HCPCS: 36415; 70450; 70486; 72125; 80053; 83690; 84484; 85025; 85610; 85730; 93005; 96361; 96374; 96375; 99285; J1200; J2765; J3490; J7040; 93010; 99284

== ENCOUNTER 2024-02-07 18:32 | Emergency (ER) | payer MEDICARE, OTHER ==
[2024-02-07] MEDS: Acetaminophen 500 MG Tab PO ONE (19:14)
[2024-02-07] MEDS: Bacitracin Oint 28.35 GM Tube TOP STA (21:21)
[2024-02-07 21:28] VITALS: BP 194/67; PULSE 49
== END 2024-02-07 21:28 | disposition home or self-care (01) ==
LOC: MW.ED 18:32
DX: S09.90XA Unspecified injury of head, initial encounter (principal); I10 Essential (primary) hypertension; K21.9 Gastro-esophageal reflux disease without esophagitis; E78.00 Pure hypercholesterolemia, unspecified; E11.9 Type 2 diabetes mellitus without complications; Z75.8 Other problems related to medical facilities and other health care; Z91.041 Radiographic dye allergy status; Z88.0 Allergy status to penicillin; Z88.1 Allergy status to other antibiotic agents; Z88.8 Allergy status to other drugs, medicaments and biological substances; Z79.899 Other long term (current) drug therapy; Z90.710 Acquired absence of both cervix and uterus; W19.XXXA Unspecified fall, initial encounter
CPT/HCPCS: 70450; 70486; 72125; 82947; 99284; A9270; 99283

== ENCOUNTER 2024-10-22 08:00 | Day surgery (SDC) | payer MEDICARE, OTHER ==
[~2024-10-22 08:00] MED LIST changes: -Lactated Ringers 1,000 ML IV SCH; +Lidocaine 2% 5 ML SDV ONE; -Midazolam 1 MG/ML 2 ML SDV ONE; -fentaNYL 100 MCG/2 ML SDV ONE
[2024-10-22] MEDS ORDERED: Midazolam 1 MG/ML 2 ML SDV ONE (08:40)
[2024-10-22] MEDS: Lactated Ringers 1,000 ML IV SCH (08:44)
[2024-10-22] MEDS ORDERED: Glycopyrrolate 0.2 MG/ML SDV ONE (09:10)
[2024-10-22] MEDS ORDERED: Lactated Ringers 1,000 ML IV SCH (09:30)
[2024-10-22 10:40] VITALS: BP 133/65; PULSE 50
== END 2024-10-22 10:20 | disposition home or self-care (01) ==
LOC: MW.SDS 08:00
PROVIDERS: ATTEND Surgery
DX: K31.7 Polyp of stomach and duodenum (principal); R13.10 Dysphagia, unspecified; K29.50 Unspecified chronic gastritis without bleeding; K31.89 Other diseases of stomach and duodenum; E78.00 Pure hypercholesterolemia, unspecified; E11.9 Type 2 diabetes mellitus without complications; I10 Essential (primary) hypertension; F17.210 Nicotine dependence, cigarettes, uncomplicated; Z88.8 Allergy status to other drugs, medicaments and biological substances; Z88.0 Allergy status to penicillin; Z91.041 Radiographic dye allergy status; Z79.899 Other long term (current) drug therapy
CPT/HCPCS: 43239; 82947; 88305; J1596; J2003; J2250; J2704; J7120; 00731; 99100